=== PATIENT | male | born 1950 | race Caucasian/White ===

== ENCOUNTER 2018-05-08 05:53 | Inpatient (IN) | payer OTHER ==
[~2018-05-08] VITALS: Ht 180.3 cm; Wt 89.4 kg
[~2018-05-08 05:53] MED LIST: ADVAIR HFA 230M1 AER IH; AMLODIPINE BESY10 MG PO; AMOXICILLIN 50500 MG PO; BENICAR; BISA-LAX5 MG RE; CARDURA4 MG PO; CELEXA 20 MG TA20 M1 PO; DIAZEPAM 5 MG5 MG PO; FLOMAX0.4 MG PO; GUAIFENESIN L1200 MG PO; KEFLEX500 MG PO; LISINOPRIL; LOSARTAN-HCTZ1 EAC3 PO; LOVENOX SQ; MOM PO; NORCO 5-325 TA1 EACH PO; PROVENTIL INH; SINGULAIR 10 MG10 M1 PO; SODIUM PHO RE; VALIUM10 MG; VICODIN; VICODIN PO
[2018-05-08 05:55] VITALS: BP 125/54
[2018-05-08 06:32] LABS: ABSOLUTE EOSINOPHILS 0.1 thou/uL (0.0-0.7); ABSOLUTE LYMPHOCYTES 1.2 thou/uL (0.8-5.3); ABSOLUTE MONOCYTES 1.1 thou/uL (0.0-1.2); ABSOLUTE NEUTROPHILS 8.8 thou/uL (1.6-8.1); BASOPHILS 0.2 %; EOSINOPHILS 0.8 %; HEMATOCRIT 28.7 % (42.0-52.0); HEMOGLOBIN 9.5 gm/dL (14.0-18.0); MCV 66.7 fL (80.0-100.0); MONOCYTES 9.9 %; MPV 7.5 fl. (7.2-11.1); NUCLEATED RBCS 0 /100WBC; PLATELET COUNT* 351 thou/uL (150-400); POLYS 78.1 %; RDW-CV 14.4 % (10.5-14.5); WBC 11.3 thou/uL (4.0-11.0)
[2018-05-08] MEDS ORDERED: NORCO 10-325 T1 EACH PO (06:34)
[2018-05-08] MEDS ORDERED: PROZAC40 MG PO (06:35)
[2018-05-08] MEDS ORDERED: NAPROSYN500 MG (06:35)
[2018-05-08] MEDS ORDERED: COZAAR100 MG PO (06:35)
[2018-05-08] MEDS ORDERED: NORVASC10 MG PO (06:35)
[2018-05-08] MEDS ORDERED: DOXEPIN 50MG CA50 MG PO (06:36)
[2018-05-08 06:41] LABS: ANION GAP 7 mmol/L (7-16); BUN 31 mg/dL (7-18); CALCIUM 8.8 mg/dL (8.5-10.1); CHLORIDE 88 mmol/L (98-107); CO2 32 mmol/L (21-32); CREATININE 1.9 mg/dL (0.6-1.3); GLUCOSE 106 mg/dL (70-99); SODIUM 127 mmol/L (136-145)
[2018-05-08 06:44] LABS: INR 1.1; PROTIME 10.9 Seconds (9.20-11.50)
[2018-05-08 06:52] LABS: ALBUMIN 3.4 g/dL (3.4-5.0); ALKALINE PHOSPHATASE 63 U/L (46-116); NT-PRO BRAIN NAT PEPTIDE 594 pg/mL (<300); SGOT 22 U/L (15-37); SGPT 23 U/L (30-65); TOTAL BILIRUBIN 0.8 mg/dL (<0.1-1.0); TOTAL PROTEIN 6.6 g/dL (6.4-8.2); TROPONIN-I LEVEL <0.06 ng/mL (<0.06)
[2018-05-08 06:53] LABS: POTASSIUM 2.6 mmol/L (3.5-5.1)
[2018-05-08 07:18] LABS: PLATELET ESTIMATE ADEQUATE
[2018-05-08 07:20] LABS: HYPOCHROMASIA 1+
[2018-05-08 07:21] LABS: ANISOCYTOSIS 2+; MICROCYTES 2+; OVALOCYTES 1+; POIKILOCYTOSIS 1+
[2018-05-08 09:30] VITALS: BP 94/54
[2018-05-08 10:00] VITALS: BP 118/54
[2018-05-08 15:46] VITALS: BP 97/56
[2018-05-08 17:07] LABS: BE 1.4 mmol/L (-2 to +3); HCO3 25.3 mmol/L (22.0-26.0); PCO2 36.8 mmHg (35.0-45.0); PO2 91.2 mmHg (75.0-100.0); pH 7.455 (7.340-7.450)
[2018-05-08 19:39] VITALS: BP 112/83
[2018-05-09] VITALS (9 sets, daily range): BP systolic 106–167; BP diastolic 56–86
[2018-05-09 05:36] LABS: HEMATOCRIT 26.1 % (42.0-52.0); HEMOGLOBIN 8.5 gm/dL (14.0-18.0); MCH 22.2 pg (26.0-34.0); MCHC 32.6 g/dL (28.0-37.0); MCV 67.9 fL (80.0-100.0); MPV 8.5 fl. (7.2-11.1); NUCLEATED RBCS 0 /100WBC; RBC 3.85 mil/uL (4.50-6.00); RDW-CV 13.8 % (10.5-14.5); WBC 4.3 thou/uL (4.0-11.0)
[2018-05-09 05:43] LABS: PLATELET COUNT* 260 thou/uL (150-400)
[2018-05-09 05:59] LABS: ANION GAP 6 mmol/L (7-16); BUN 23 mg/dL (7-18); CALCIUM 8.2 mg/dL (8.5-10.1); CHLORIDE 89 mmol/L (98-107); CO2 28 mmol/L (21-32); CREATININE 1.5 mg/dL (0.6-1.3); GLUCOSE 138 mg/dL (70-99); SODIUM 123 mmol/L (136-145); TROPONIN-I LEVEL <0.06 ng/mL (<0.06)
[2018-05-09 06:03] LABS: POTASSIUM 4.1 mmol/L (3.5-5.1)
[2018-05-09 06:26] LABS: ABSOLUTE LYMPHOCYTES 0.3 thou/uL (0.8-5.3); ANISOCYTOSIS 1+; HYPOCHROMASIA 2+; MICROCYTES 2+
--- NOTE | 2018-05-09 08:57 | CON ---
[address] [address] CONSULTATION Name: PAULINO CONTRERAS Room: [address] IN M.R.#: [id number] Admission: 05/08/18 Attend Phys: Jermaine Suh MD Discharge: Date of : 54 Report #: [id number] THIS REPORT FOR: //name// CC: Jermaine Ray REASON FOR CONSULTATION: Acute respiratory failure. HISTORY OF PRESENT ILLNESS: This is a 67-year-old male patient, actually this is his first visit to [facility], who told me he was a week ago at [facility] for one night and he left against medical advice according to him. He was there for shortness of breath and urine problem, according to him, he was not clear, but he told me he had wheezes, cough and shortness of breath that progressed over the course of 1 week after he left [facility]. He reported he has chronic respiratory failure and COPD. He is on home oxygen 4 liters 25/04. He smokes e-cigarettes. He had been having cough, occasional sputum production, so the cough is mostly dry and wheezes for a week or so. He had denied nausea or vomiting. He denied sick contact. He denied any PND or orthopnea. He denied any chest pain. He is not sure if he had any fever or chills. Apparently, initially in the ER, he was in moderate respiratory distress; however, when I saw him, he was on 4 liter O2 saturation 100%, but per the RN, with minimal exertion, he becomes very tachypneic. PAST MEDICAL HISTORY: He has history of chronic respiratory failure, on home O2; COPD and hypertension. There is a mention of asthma in his record and apparently, he drinks alcohol daily. PAST SURGICAL HISTORY: He had a mention of thoracotomy in the surgery. He is not clear what kind of surgery he had shoulder surgery on the right, had enlarged prostate and kidney tumor and back surgeries. HOME MEDICATIONS: He is supposed to be on Singulair, Valium, Cardura, hydrocodone, naproxen, Prozac, Cozaar and doxepin. FAMILY HISTORY: Reviewed with the patient and noncontributory. SOCIAL HISTORY: He smokes e-cigarettes. He drinks alcohol daily. REVIEW OF SYSTEMS: He denied fever, chills, blurring of vision, hearing loss, headache, dysphagia, difficulty swallowing or dysarthria. He denied nausea or vomiting. He has some difficulty urination. He denied any chronic back pain. He denied any depression or bleeding from any orifice. He denied numbness, tingling, swelling or lower extremity edema. The rest of the review of system was negative. PHYSICAL EXAMINATION: VITAL SIGNS: He was on 4 liter oxygen, O2 saturation 97%, blood pressure 94/54, [place] [address] CONSULTATION Name: PAULINO CONTRERAS Jena Room: [address] IN [facility]#: [id number] Admission: 05/08/18 Attend Phys: Jermaine Suh MD Discharge: Date of : 54 Report #: [id number] breathing 16 times a minute, pulse rate of 100 and afebrile. GENERAL: Elderly gentleman, awake, alert. HEAD: Normocephalic, atraumatic. EYES: Pupils are reactive to light. Not pale, no jaundice. EARS: External ear looks healthy and normal. NOSE: Nasal cavity patent passages. ORAL CAVITY: Moist mucous membranes, missing teeth. NECK: Supple. No palpable lymphadenopathy. No palpable thyroid. Trachea is central. CHEST: Diminished air movement bilaterally, prolonged expiratory phase with wheezes, some rhonchi heard at the bases. HEART: S1, S2. ABDOMEN: Benign, soft, lax and nontender. Positive bowel sounds. EXTREMITIES: Lower extremity: No edema, no calf tenderness. SKIN: Normal for age and race. No rash. LYMPHATIC: No palpable lymph nodes. PSYCHIATRIC: Mood and affect slightly anxious. LABORATORY DATA: His chest x-ray in the ER showed thickening throughout both lungs, suggestive for COPD and right pleural thickening. His white blood count is 11.3, hemoglobin 9.5 and platelets of 351,000. His INR is 1.1. Potassium 2.6, sodium 127, chloride 88 and creatinine 1.9. Urine drug screen is pending, although his blood alcohol level is less than 10. IMPRESSION: 1. Nikre-fd-lkqrxhx respiratory failure. 2. Chronic obstructive pulmonary disease exacerbation. 3. Abnormal chest x-ray. 4. Hyponatremia. 5. Hypokalemia. 6. Acute renal failure. 7. Pneumonia. PLAN: At this point, the patient will be on scheduled nebulization treatments. He will be on IV antibiotics, continue oxygen support. Currently, he is comfortable, but if his respiratory status deteriorates, we can consider BiPAP. He needs replacing his electrolytes and monitoring fluid status and gentle hydration. It was noted Cardiology will follow along. I agree with the echocardiogram. He told me he had a CT scan done a week ago at [facility]; we will get those medical records before proceeding with any further imaging here. Discussed with the patient and the patient's nurse. [address] [place] [place] [address] CONSULTATION Name: PAULINO CONTRERAS Room: [address] IN [facility]#: [id number] Admission: 05/08/18 Attend Phys: Jermaine Suh MD Discharge: Date of : 54 Report #: [id number] Thank you for the consult. <ELECTRONICALLY SIGNED> By: Aditya Contreras MD 05/09/18 0857 1013 [id number] Contreras MD /nt
--- NOTE | 2018-05-09 15:31 | 2DMMODE ---
[place] [address] 2 D/M-MODE ECHOCARDIOGRAM Name: PAULINO CONTRERAS Room: [address] IN [facility]#: [id number] Admission: 05/08/18 Attend Phys: Jermaine Suh, Discharge: Date of : 54 Date of Service: 05/09/18 1531 Report #: [id number] THIS REPORT FOR: //name// APPROVED REPORT Study performed: 05/09/2018 10:06:27 EXAM: Comprehensive 2D, Doppler, and color-flow Echocardiogram Patient Location: In-Patient Room #: 200 Status: routine BSA: 2.15 HR: 110 bpm BP: 106/67 mmHg Rhythm: NSR Other Information Technically limited study due to uncooperative patient, inability to position patient, patient could not hold still. Indications Dyspnea 2D Dimensions LVEF(%): 73.46 (>50%) IVSd: 12.10 (7-11mm) LVOT Diam: 22.78 (18-24mm) LVDd: 45.70 mm PWd: 11.20 (7-11mm) LVDs: 26.35 (25-40mm) Aortic Root: 35.14 mm Stephen's LVEF: 73.46 % Aortic Valve AoV Peak Jl.: 1.71 m/s AO Peak Gr.: 11.71 mmHg LVOT Max P.00 mmHg AO Mean Gr.: 6.07 mmHg LVOT Mean P.79 mmHg LVOT Max V: 1.22 m/s AO V2 VTI: 22.08 cm LVOT Mean V: 0.76 m/s RICHARD (VTI): 3.65 cm2 LVOT V1 VTI: 19.75 cm Mitral Valve E/A Ratio: 0.67 MV Decel. Time: 177.69 ms MV E Max Jl.: 0.88 m/s MV PHT: 51.53 [place] [address] 2 D/M-MODE ECHOCARDIOGRAM Name: PAULINO CONTRERAS Room: [address] IN ..#: [id number] Admission: 05/08/18 Attend Phys: Jermaine Suh, Discharge: Date of : 54 Date of Service: 05/09/18 1531 Report #: [id number] MVA (PHT): 4.27 cm2 Left Ventricle The left ventricle is normal size. There is normal LV segmental wall motion. There is normal left ventricular wall thickness. Left ventricular systolic function is normal. The left ventricular ejection fraction is within the normal range. LVEF is 65-70%. Grade I - abnormal relaxation pattern. Right Ventricle The right ventricle is normal size. The right ventricular systolic function is normal. Atria The left atrium size is normal. The right atrium size is normal. Aortic Valve The aortic valve is normal in structure. No aortic regurgitation is present. There is no aortic valvular stenosis. Mitral Valve The mitral valve is normal in structure. Trace mitral regurgitation. No evidence of mitral valve stenosis. Tricuspid Valve The tricuspid valve is normal in structure. Unable to assess PA pressure. Trace tricuspid regurgitation. Pulmonic Valve The pulmonary valve is normal in structure. There is no pulmonic valvular regurgitation. Great Vessels The aortic root is normal in size. IVC is not visualized. Pericardium There is no pericardial effusion. <Conclusion> The left ventricle is normal size. There is normal left ventricular wall thickness. Left ventricular systolic function is normal. The left ventricular ejection fraction [place] [address] 2 D/M-MODE ECHOCARDIOGRAM Name: PAULINO CONTRERAS Room: [address]#: [id number] Admission: 05/08/18 Attend Phys: Jermaine Suh, Discharge: Date of : 54 Date of Service: 05/09/18 1531 Report #: [id number] LVEF is 65-70%. Grade I - abnormal relaxation pattern. The right ventricle is normal size. The left atrium size is normal. The aortic valve is normal in structure. The mitral valve is normal in structure. The tricuspid valve is normal in structure. There is no pericardial effusion. There is normal LV segmental wall motion. <ELECTRONICALLY SIGNED> By: Chavo Dupree MD, [facility] 05/09/18 1531 1531 1531 Chavo Dupree MD, FACC /INF
[2018-05-09 16:20] LABS: CALCIUM 8.3 mg/dL (8.5-10.1); CREATININE 1.2 mg/dL (0.6-1.3); POTASSIUM 3.9 mmol/L (3.5-5.1)
[2018-05-09 16:44] LABS: URINE BILIRUBIN NEGATIVE (Negative); URINE BLOOD NEGATIVE (Negative); URINE CLARITY CLEAR; URINE COLOR YELLOW; URINE GLUCOSE-RANDOM NEGATIVE (Negative); URINE KETONES NEGATIVE (Negative); URINE LEUKOCYTES-REFLEX NEGATIVE (Negative); URINE NITRITE-REFLEX NEGATIVE (Negative); URINE PROTEIN NEGATIVE (Negative); URINE SPECIFIC GRAVITY <= 1.005 (1.005-1.030); URINE UROBILINOGEN 0.2 E.U./dl (0.2-1.0)
[2018-05-09 16:49] LABS: AMP/METHAMP Negative (Negative); BARBITURATES Negative (Negative); BENZODIAZEPINES Negative (Negative); COCAINE Negative (Negative); METHADONE Negative (Negative); OPIATES POSITIVE (Negative); PCP Negative (Negative); THC Negative (Negative)
[2018-05-09 16:57] LABS: URINE POTASSIUM-RANDOM 6.4 mmol/L
[2018-05-10 04:43] VITALS: BP 121/35
[2018-05-10 06:21] LABS: CALCIUM 8.5 mg/dL (8.5-10.1); CREATININE 1.2 mg/dL (0.6-1.3); MAGNESIUM 1.8 mg/dL (1.8-2.4); PHOSPHORUS* 2.6 mg/dL (2.5-4.9); POTASSIUM 3.9 mmol/L (3.5-5.1)
[2018-05-10 08:16] VITALS: BP 136/60
[2018-05-10 11:36] VITALS: BP 131/61
--- NOTE | 2018-05-10 15:52 | CON ---
[address] [address] CONSULTATION Name: PAULINO CONTRERAS Room: [address] IN .R.#: [id number] Admission: 05/08/18 Attend Phys: Jermaine Suh MD Discharge: Date of : 54 Report #: [id number] THIS REPORT FOR: //name// CC: Jermaine Scott [place] REASON FOR CONSULTATION: Hyponatremia. CONSULTING PHYSICIAN: Jermaine Suh MD HISTORY OF PRESENT ILLNESS: A 67-year-old gentleman admitted with respiratory failure and COPD exacerbation. He denies any history of hyponatremia, but was admitted with sodium of 127, it is down to 122 today. He does drink quite a bit of water at home a day, at least 1-2 gallons. For the past week and a half he has been having some unsteady balance, but no slurred speech or other neurologic changes. Denies any new medications. He tells me that he has lost some weight, but cannot really quantify it. REVIEW OF SYSTEMS: Constitutional, psych, heme, eyes, ENT, respiratory, cardiac, GI, , endocrine, all negative except as documented above. PAST MEDICAL HISTORY: COPD on home oxygen, hypertension, asthma. SOCIAL HISTORY: Positive for tobacco. FAMILY HISTORY: Not pertinent in a 67-year-old gentleman. PHYSICAL EXAMINATION: VITAL SIGNS: Blood pressure 150/56, pulse 96, respirations 20, temperature 36.7. GENERAL: No acute distress. EYES: Extraocular movements intact. EARS: Externally normal. CARDIOVASCULAR: Regular rate. LUNGS: Diminished breath sounds. ABDOMEN: Soft. MUSCULOSKELETAL: Nontender. PSYCHIATRIC: Awake, alert. LABORATORY DATA: White cell count 4.3, hemoglobin 8.5, platelets 260. Sodium 122, potassium 4, chloride 88, bicarbonate 25, BUN was 23, creatinine 1.5, glucose 138, calcium 8.2. ASSESSMENT: 1. Hyponatremia with an admission sodium of 127 and down to 122 on 05/09/2018 in the setting of drinking 1-2 gallons of water a day. Bilateral pleural masses for which a biopsy is planned. Pneumonia, chronic [place] [address] CONSULTATION Name: PAULINO CONTRERAS Room: [address] IN [facility]#: [id number] Admission: 05/08/18 Attend Phys: Jermaine Suh MD Discharge: Date of : 54 Report #: [id number] exacerbation. TSH was okay. 2. Acute kidney injury with admission creatinine was 1.9, it is down to 1.5 on 05/09/2018. Baseline creatinine unknown. This is in the setting of naproxen and ARB. 3. Hypertension. PLAN: 1. Check urine sodium, urine potassium and urine osmolarity. 2. Repeat sodium now. 3. 1.5 L per day fluid restriction. 4. He is not having any severe symptoms at present. We will await repeat, which will be called to me to determine if any further treatment other than the fluid restriction is needed at this time. Thank you for requesting my opinion in the care and management of this patient. <ELECTRONICALLY SIGNED> By: Brittnee Elder MD 05/10/18 1552 1611 [id number] Elder MD /nt
[2018-05-10 16:13] VITALS: BP 125/59
[2018-05-10 20:00] VITALS: BP 119/75
[2018-05-11] VITALS: BP 137/61
[2018-05-11 04:30] LABS: HEMOGLOBIN 8.1 gm/dL (14.0-18.0); MCH 21.9 pg (26.0-34.0); MCHC 32.6 g/dL (28.0-37.0); MCV 67.4 fL (80.0-100.0); MPV 8.2 fl. (7.2-11.1); NUCLEATED RBCS 0 /100WBC; PLATELET COUNT* 246 thou/uL (150-400); RBC 3.71 mil/uL (4.50-6.00); RDW-CV 13.9 % (10.5-14.5); WBC 9.3 thou/uL (4.0-11.0)
[2018-05-11 04:40] VITALS: BP 121/78
[2018-05-11 04:55] LABS: ALBUMIN 3.1 g/dL (3.4-5.0); CALCIUM 8.4 mg/dL (8.5-10.1); CREATININE 1.1 mg/dL (0.6-1.3); POTASSIUM 4.3 mmol/L (3.5-5.1); TOTAL BILIRUBIN 0.4 mg/dL (<0.1-1.0); TOTAL PROTEIN 5.6 g/dL (6.4-8.2)
[2018-05-11 05:39] LABS: ABSOLUTE LYMPHOCYTES 0.5 thou/uL (0.8-5.3); ABSOLUTE NEUTROPHILS 8.8 thou/uL (1.6-8.1); PLATELET ESTIMATE ADEQUATE
[2018-05-11 05:40] LABS: ANISOCYTOSIS 2+; HYPOCHROMASIA 1+; MICROCYTES 2+; OVALOCYTES 2+
[2018-05-11 05:41] LABS: POIKILOCYTOSIS 2+
[2018-05-11 07:58] VITALS: BP 137/69
[2018-05-11 12:30] VITALS: BP 92/71
[2018-05-11 17:01] VITALS: BP 130/87
[2018-05-11 20:05] VITALS: BP 105/64
[2018-05-12 00:01] VITALS: BP 121/65
[2018-05-12 04:00] VITALS: BP 139/70
[2018-05-12 08:02] VITALS: BP 126/80
[2018-05-12] MEDS ORDERED: AUGMENTIN 875-1 EACH PO (09:50)
[2018-05-12] MEDS ORDERED: PROTONIX40 M1 PO (09:51)
[2018-05-12 09:54] VITALS: BP 126/80
[2018-05-12] MEDS ORDERED: PREDNISONE 10 M10 MG PO (09:54)
[2018-06-14] MEDS ORDERED: LEVALBUTER1.25 MG/0. INH (11:55)
--- NOTE | 2018-06-27 07:44 | PATH ---
[address] [address] PATHOLOGY RPT PROCEDURE Name: PAULINO VILLARREAL Room: [address] IN ..#: [id number] Admission: 05/08/18 Date of : 54 Discharge: 05/12/18 Report #: [id number] Path Case #: [id number] [facility] Accession Number: [id number] . 01 Material submitted: . RIGHT PLEURAL SPACE BIOPSY . 01 Clinical history: . 6.9 x 2.5 cm area with calcification . 02 Diagnosis: Right pleural space biopsy: - Benign dense fibrous connective tissue with mild chronic inflammation. See comment. (VARGAS:aryan; 05/12/2018) QMS/05/12/2018 . 02 Comment: All of the cores show similar findings with hypocellular dense fibrosis without necrosis or atypia or definite recognizable mesothelial cells. No calcification is seen. Reviewed with Dr. Osbaldo Dugan, who agrees with the diagnosis. Discussed with Dr. Nagy on afternoon of 05/12/2018. (VARGAS:nyu langone [facility]; 05/12/2018) . 02 Electronically signed: . Michael Saldaña MD, Pathologist NPI- [id number] . 01 Gross description: . Received in formalin labeled "Paulino Villarreal, right pleural space BX," are six distinct needle cores of sanchez soft tissue ranging from 0.3 to 1.2 cm in length and measuring 0.1 cm each in diameter. The specimen is submitted entirely in cassettes A1 through A3. (DAC; 05/11/2018) XDC/XDC . 02 Pathologist provided ICD-10: R09.1 . 02 CPT . 707271 Specimen Comment: A courtesy copy of this report has been sent to Specimen Comment: [phone], . Performed at: [address] [id number] MD Tyler Johnson MD Phone: [phone] Performed at: 02 [place] [address] PATHOLOGY RPT PROCEDURE Name: PAULINO VILLARREAL Room: [address] IN M.R.#: [id number] Admission: 05/08/18 Date of : 54 Discharge: 05/12/18 Report #: [id number] Path Case #: [id number] [facility] [place] [address], [place], [place] [id number] MD Michael Saldaña MD Phone: [phone]
== END 2018-05-12 12:00 | disposition home or self-care (01) | DRG 177 ==
LOC: M.ERS → EDBD 05:53 → M.2W 07:52 → M.TBA-ER 07:52 → M.2W 09:35
PROVIDERS: Emergency Medicine; Internal Medicine Nephrology; ADMIT Internal Medicine
PROC: 0BBP3ZX Excision of Left Pleura, Percutaneous Approach, Diagnostic (ICD-10-PCS; principal; 2018-05-10)
PROC: BB4BZZZ Ultrasonography of Pleura (ICD-10-PCS; principal; 2018-05-10)
DX: J15.6 Pneumonia due to other Gram-negative bacteria (principal); J96.21 Acute and chronic respiratory failure with hypoxia; R65.11 Systemic inflammatory response syndrome (SIRS) of non-infectious origin with acute organ dysfunction; J44.1 Chronic obstructive pulmonary disease with (acute) exacerbation; J44.0 Chronic obstructive pulmonary disease with (acute) lower respiratory infection; E87.1 Hypo-osmolality and hyponatremia; N17.9 Acute kidney failure, unspecified; I47.1 Supraventricular tachycardia; I10 Essential (primary) hypertension; N40.0 Benign prostatic hyperplasia without lower urinary tract symptoms; F17.290 Nicotine dependence, other tobacco product, uncomplicated; E87.6 Hypokalemia; D64.9 Anemia, unspecified; Z91.14 Patient's other noncompliance with medication regimen; Z79.2 Long term (current) use of antibiotics; Z79.51 Long term (current) use of inhaled steroids; Z79.899 Other long term (current) drug therapy; Z99.81 Dependence on supplemental oxygen

== ENCOUNTER 2018-05-15 19:59 | Inpatient (IN) | payer OTHER ==
[~2018-05-15] VITALS: Ht 180.3 cm; Wt 97.5 kg
[~2018-05-15 19:59] MED LIST changes: +AUGMENTIN 875-1 EACH PO; +COZAAR100 MG PO; +DOXEPIN 50MG CA50 MG PO; +NAPROSYN500 MG; +NORCO 10-325 T1 EACH PO; +NORVASC10 MG PO; +PREDNISONE 10 M10 MG PO; +PROTONIX40 M1 PO; +PROZAC40 MG PO
[2018-05-15 20:30] LABS: HEMOGLOBIN 7.9 gm/dL (14.0-18.0); MCH 22.3 pg (26.0-34.0); MCV 67.6 fL (80.0-100.0); MPV 8.4 fl. (7.2-11.1); NUCLEATED RBCS 0 /100WBC; PLATELET COUNT* 255 thou/uL (150-400); RBC 3.54 mil/uL (4.50-6.00); RDW-CV 14.7 % (10.5-14.5); WBC 16.6 thou/uL (4.0-11.0)
[2018-05-15 20:33] LABS: ANION GAP 5 mmol/L (7-16); BUN 16 mg/dL (7-18); CALCIUM 8.2 mg/dL (8.5-10.1); CHLORIDE 94 mmol/L (98-107); CO2 31 mmol/L (21-32); CREATININE 1.2 mg/dL (0.6-1.3); GLUCOSE 122 mg/dL (70-99); POTASSIUM 3.4 mmol/L (3.5-5.1); SODIUM 130 mmol/L (136-145)
[2018-05-15 20:35] LABS: PROTIME 9.8 Seconds (9.20-11.50)
[2018-05-15 20:43] LABS: ALBUMIN 3.1 g/dL (3.4-5.0); ALKALINE PHOSPHATASE 47 U/L (46-116); NT-PRO BRAIN NAT PEPTIDE 1267 pg/mL (<300); SGOT 16 U/L (15-37); SGPT 28 U/L (30-65); TOTAL BILIRUBIN 0.7 mg/dL (<0.1-1.0); TOTAL PROTEIN 5.6 g/dL (6.4-8.2); TROPONIN-I LEVEL <0.06 ng/mL (<0.06)
[2018-05-15 22:05] LABS: ABSOLUTE LYMPHOCYTES 0.5 thou/uL (0.8-5.3); ABSOLUTE MONOCYTES 0.7 thou/uL (0.0-1.2); ABSOLUTE NEUTROPHILS 15.4 thou/uL (1.6-8.1); PLATELET ESTIMATE ADEQUATE
[2018-05-15 22:06] LABS: HYPOCHROMASIA 3+; MICROCYTES 2+; OVALOCYTES 1+
[2018-05-15 22:57] VITALS: BP 117/69
[2018-05-15 23:10] VITALS: BP 127/74
[2018-05-16 04:00] VITALS: BP 121/66
--- NOTE | 2018-05-16 06:39 | NUR ---
PT WAS ADMITTED TO ROOM 209 DURING THIS SHIFT; VSS, A+OX4, RECEIVED PAIN MEDS IN THE ED, ON 4L O2 VIA NC. HE IS ABLE TO COMMUNICATE HIS NEEDS TO STAFF EFFECTIVELY. CURRENT PAIN MEDICATION REGIMEN HAS BEEN ADEQUATE FOR CONTROLLING HIS PAIN UP TO THIS TIME. ELECTROLYTE PROTOCOL INITIATED IN THE ED.
[2018-05-16 08:00] VITALS: BP 126/71
--- NOTE | 2018-05-16 11:09 | EKG ---
[place] [address] ELECTROCARDIOGRAM REPORT Name: PAULINO CONTRERAS Room: [address] ADM IN .R.#: [id number] Admission: 05/15/18 Attend Phys: Ethel Cruz MD Discharge: Date of : 54 Report #: [id number] THIS REPORT FOR: //name// [facility] ED Test Date: 2018-05-15 Test Time: 20:17:18 Pat Name: PAULINO CONTRERAS Department: Room: [facility] Gender: M Management Manager: MS : 1950 Requested By: Gilma Holman Order Number: [id number] MD: Kirill Jean Measurements Intervals [place] Rate: 96 P: 65 NC: 145 QRS: 34 QRSD: 144 T: 4 QT: 376 QTc: 476 Interpretive Statements Sinus tachycardia Multiform ventricular premature complexes Right bundle branch block Compared to ECG 12/16/2010 09:35:32 Ventricular premature complex(es) now present Sinus rhythm no longer present Electronically Signed On 05-16-2018 11:09:03 CDT by Kirill Jean [email or web address] <ELECTRONICALLY SIGNED> By: Kirill Jean MD, FACC 05/16/18 1109 16 16 Kirill Jean MD, FAC /EPI
--- NOTE | 2018-05-16 11:34 | NUR ---
Nutrition: Pt assessed for pressure ulcer on Lt buttock. Heart Healthy diet. Unsure of po intake today. Wt: 199#. H/o COPD, HTN, ARF, falls/uses cane. Na 133, BG 122, alb 3.1. RX: steroids. Pressure ulcer is not new. RD will order Tay for added protein to aid in wound healing. Mild risk. RECOMMEND MVI USE.
[2018-05-16 12:00] VITALS: BP 127/57
[2018-05-16 14:37] LABS: CREATININE 1.2 mg/dL (0.6-1.3); MAGNESIUM 1.7 mg/dL (1.8-2.4); POTASSIUM 3.5 mmol/L (3.5-5.1)
[2018-05-16 15:23] VITALS: BP 114/59
--- NOTE | 2018-05-16 15:29 | NUR ---
Pt is A&O. Resides at home with his son. Pt known to CM, from last hospital stay last week. Pt uses a cane for mobility. Home o2 through [employer]. No hx of HH or SNF. Goal is home at pr. Following.
--- NOTE | 2018-05-16 18:59 | NUR ---
PATINET RESTING IN BED. UP WITH MAX ASSIST. PAITNET IS UTILIZING 4L PEDR NASAL CANULA. HOURLY ROUNDING COMPLETD FOR [id number] SAFETY. VITAL SIGNS STABLE.
[2018-05-16 20:00] VITALS: BP 131/71
[2018-05-17] VITALS: BP 128/58
[2018-05-17 04:00] VITALS: BP 133/66
--- NOTE | 2018-05-17 04:08 | NUR ---
PT ALERT ORIENTED. TELEMETRY SHOWS SR BBB 1ST DEGREE AVB. ON 1750ML FR. O2 AT 4 LITERS NC. NO SOA OR RESPIRATORY DISTRESS NOTED. O2 SATS 100% VOIDS PER URINAL. WILL CONTINUE TO MONITOR.
[2018-05-17 08:23] VITALS: BP 129/70
--- NOTE | 2018-05-17 08:42 | NUR ---
PT BECAME ANGRY THIS AM ABOUT HIS DIET ORDER AND FLUID RESTRICTION. PT CALLED TO DIETARY DEMANDING TWO LARGE PEPSI THAT DIETARY REFUSED. PT THEN YELLED AT NURSING BECAUSE THE PEPSI WAS CONTINUED TO BE REFUSED BUT WAS OFFERED A SMALLER DIET PEPSI THAT PT REFUSED. WHILE NURSE WAS ATTEMPTING TO EDUCATE PT ABOUT FLUID RESTRICTION AND SODIUM LEVELS, PT KEPT REPEATING HE COULD DO WHAT HE WANTED AND HE HAS RIGHTS. PT SON THEN WALKED IN WITH FAST FOOD BREAKFAST AND 2 LARGE CHACHA FOR PT AND LEFT IT AT BEDSIDE FOR PT. PT EDUCATED IMPRTANCE OF FOLLOWING DR RECOMMENDATIONS AND HEALTH BUT PT DISREGARDED STATING 'I CAN DO WHAT I WANT AND YOU CANT STOP ME'. NURSE LEFT THE ROOM.
[2018-05-17 12:00] VITALS: BP 96/58
[2018-05-17 13:05] LABS: ALBUMIN 2.7 g/dL (3.4-5.0); CALCIUM 8.1 mg/dL (8.5-10.1); POTASSIUM 3.9 mmol/L (3.5-5.1); TOTAL BILIRUBIN 0.4 mg/dL (<0.1-1.0); TOTAL PROTEIN 5.5 g/dL (6.4-8.2)
--- NOTE | 2018-05-17 15:01 | NUR ---
WOUND CARE NOTE: CONSULT RECEIVED FOR LEFT BUTTOCK. PATIENT PRESENTS WITH A HEALING STAGE 3 PRESSURE ULCER TO THE LEFT BUTTOCK MEASURING 1.5X2.5X0.1. PINK, MOIST WOUND BED TO 80% OF THE WOUND BED. 20% OF THE WOUND BED WITH YELLOW, MOIST, ADHERENT SLOUGH TISSUE. YEE-WOUND INTACT. SUPERIOR TO THIS PRESSURE ULCER, THERE IS ANOTHER AREA OF BREAKDOWN MEASURING 0.2X0.5X0.1. PINK, MOIST, WOUND BED. YEE-WOUND WITH NEW EPITHELIUM, HEALING. CLEANSED BOTH AREAS WITH WOUND CLEANSER, PATTED DRY. APPLIED SKIN PREP TO YEE-WOUND. APPLIED AQUACEL AG TO BOTH WOUND BEDS AND SECURED WITH EXUDERM THEN TEGADERM. EDUCATED PATIENT ON NICOTINE CESSATION, OFFLOADING, AND DRESSING SELECTION. PATIENT COMMUNICATED UNDERSTANDING, BUT HE WILL NEED ENCOURAGEMENT WITH OFFLOADING AND NICOTINE CESSATION. RECOMMEND LIMIT HOB <30 DEGREES ENCOURAGE GOOD NUTRITION/HYDRATION ENCOURAGE NICOTINE CESSATION KEEP OFF WOUND TURN Q2 HOURS
--- NOTE | 2018-05-17 15:19 | CON ---
[address] [address] CONSULTATION Name: PAULINO CONTRERAS Room: [address] IN M.R.#: [id number] Admission: 05/15/18 Attend Phys: Ethel Cruz MD Discharge: Date of : 54 Report #: [id number] THIS REPORT FOR: //name// CC: Ethel Ray DATE OF SERVICE: 05/16/2018 CONSULTATION REQUESTED BY: Dr. Medley. INDICATION FOR CONSULTATION: Shortness of breath0, 05/16/2018. HISTORY OF PRESENT ILLNESS: This is a 67-year-old gentleman. Past medical history includes a history of oxygen-dependent COPD. The patient also has had a pleural plaques/pleural-based masses and he has had 2 recent admissions, the first one was at [facility] from which he is reported to have signed AMA and left. Last admission was subsequent to that and at this hospital, he was seen by our service. The patient, at that time, did undergo a biopsy of pleural mass, which is benign. The patient was subsequently discharged after improvement in shortness of breath. The patient says he went home, but continued to have significant shortness of breath. Also continued to wheeze, and therefore, came back to this hospital. He does have a cough. There is not much sputum production. There is no chest pain. He does not have upper respiratory complaints. There is no increase in swelling of lower extremities or calf pain. The patient does have a history of back pain, which remains at baseline. He does have a history of disturbed sleep at night as well as sleepiness during the day. He says he has been prescribed a CPAP at home, which he has not been using regularly. REVIEW OF SYSTEMS: The patient answered with the negative for 12 questions for review of systems, except as mentioned above. PAST MEDICAL HISTORY: Chronic respiratory failure, on oxygen secondary to COPD. Obstructive sleep apnea, he has a CPAP at home. He says he has, for the last few weeks, not been using it regularly. Pleural nodule/plaque/masses with recent biopsy performed in this hospital, which was negative. There is significant scarring or atelectasis or chronic infiltrate in the right lung base on his CT, the chronicity of which is not fully known to me. I do not have the records from [place] at this time. Obstructive sleep apnea. He has a CPAP at home. He says he does not use it regularly. Also a history of hypertension. He has had a thoracotomy in the past, I do not have details; shoulder surgery; a large prostate; kidney tumor; back surgeries; hyponatremia, suspected to be secondary to excessive fluid intake. The [place] [address] CONSULTATION Name: PAULINO CONTRERAS Room: [address] IN .R.#: [id number] Admission: 05/15/18 Attend Phys: Ethel Cruz MD Discharge: Date of : 54 Report #: [id number] gallons of water daily. The patient's last available echocardiogram is from about a week ago and shows a left ventricular ejection fraction of 65% to 70%. There is trace mitral regurgitation. The tricuspid valve was noted to be normal. SOCIAL HISTORY: He has an extensive history of smoking, unable to quantify exactly at this time. He says he has recently switched to e-cigarettes rather than regular cigarettes. Also, he drinks alcohol daily, again, unable to quantify exactly. He is on prescribed benzodiazepines as well as narcotics at home, not known to be using any illegal drugs. 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 There is no known history of working on a ship. No known history of working at a steel mill. CURRENT MEDICATIONS: List in 12Return reviewed. HOME MEDICATIONS: List also in 12Return reviewed. FAMILY HISTORY: There is no pertinent family history. ALLERGIES: No known drug allergies. PHYSICAL EXAMINATION: GENERAL: He is alert, awake and oriented. VITAL SIGNS: He has a pulse of 90 and a blood pressure of 127/57. He is saturating 97%, he is on 4 liters nasal cannula. His respiratory rate is 16. He is afebrile with a temperature of 36.6. HEENT: Head is normocephalic and atraumatic. Pupils are equal and reactive. There is no throat erythema. NECK: Does not show raised JVP, asymmetry, mass or lymph nodes. CHEST: Symmetrical expansion on inspection and palpation. On auscultation, breath sounds are bilaterally equal, except that I do not hear good breath sounds at the right lung base. Expirations are prolonged. There are inspiratory as well as expiratory wheezes heard bilaterally. HEART: Regular. There is no murmur. ABDOMEN: Soft and nontender. EXTREMITIES: Lower extremities show no edema, no calf tenderness. SKIN: Dry and intact. NEUROLOGICAL EXAMINATION: He moves all extremities bilaterally equally and spontaneously, with no focal deficit identified. LABORATORY DATA: I reviewed the patient's last CT chest performed last night . In addition to the report, I reviewed the films as well. I did the same with the last CT from last week as well. I do not have the previous CT performed at [facility] available at this time. The patient's lab work, which does show significant anemia, in 12Return reviewed. Note that the patient's creatinine was elevated to 1.2. Sodium was on the lower [place] [address] [address] CONSULTATION Name: PAULINO CONTRERAS Room: [address] IN .R.#: [id number] Admission: 05/15/18 Attend Phys: Ethel Cruz MD Discharge: Date of : 54 Report #: [id number] ASSESSMENT AND PLAN: 1. Sxsyd-gz-umkapze hypoxemic respiratory failure. The patient appears to be bronchospastic. This appears to be the etiology of the patient's decompensation. 2. Chronic obstructive pulmonary disease exacerbation. Continue Solu-Medrol as well as nebulized bronchodilators as currently prescribed. Recommend following blood glucoses. 3. Pleural plaques/nodules chronic pulmonary infiltrate/atelectasis. It is not possible for me to state with certainty as to whether the patient has pneumonia. Clinical presentation, however, is more consistent with his CT finding that has been old and his current decompensation is being secondary to bronchospasm. The patient currently is on Augmentin as well as Levaquin for now. I continued with Levaquin and discontinued Augmentin. Note that he has had a biopsy performed on his pleural nodule recently, which is negative for any malignancy. Once his acute illness has been treated, obtaining a PET scan to evaluate this further can be a consideration. 4. Obstructive sleep apnea. He is on a CPAP at home, which he says he has not been using regularly for the last few weeks. Recommend placing him on a BiPAP for now. Recommend compliance with CPAP therapy. 5. Hyponatremia with a history of excessive fluid intake. We will go ahead and repeat labs and see where we stand. Note that the patient's lactate was elevated on initial presentation. If his creatinine and BUN are normal, I still may consider fluid restriction; however, I want to look at the creatinine and BUN first. We will replace electrolytes as needed. 6. Anemia/gastrointestinal prophylaxis. He is on Protonix and I will recommend continuing. Suggest further workup of anemia, if not already performed. 7. Deep vein thrombosis prophylaxis. I will recommend SCDs. 8. History of alcohol intake, unable to quantify exactly; unknown to me as to whether the patient has a history of excessive alcohol intake. Suggest watching for withdrawal. Thanks for this consultation. <ELECTRONICALLY SIGNED> By: Matthias Snowden MD 05/17/18 1519 1416 [id number] Snowden MD /nt
[2018-05-17 16:00] VITALS: BP 127/67
[2018-05-17 20:00] VITALS: BP 126/68
[2018-05-18] VITALS (8 sets, daily range): BP systolic 111–141; BP diastolic 62–82
--- NOTE | 2018-05-18 03:22 | NUR ---
ASSUMED PT CARE AT 1930. ASSESSMENT COMPLETED CHARTED. PT RESTING IN BED AT THIS TIME. APPROPRIATE TO STAFF THIS SHIFT, EVEN JOKED AROUND WITH THIS NURSE. GAVE PAIN MEDICATION AND ANXIETY MEDICATION NEEDED. C/O CHRONIC BACK PAIN. PT STAYS IN BED MOST OF THE TIME DUE TO WEAKNESS AND SOA. WILL CONTINUE TO MONITOR.
[2018-05-18 07:25] LABS: ABSOLUTE LYMPHOCYTES 0.4 thou/uL (0.8-5.3); ABSOLUTE MONOCYTES 0.8 thou/uL (0.0-1.2); ABSOLUTE NEUTROPHILS 14.5 thou/uL (1.6-8.1); BASOPHILS 0.1 %; HEMATOCRIT 22.8 % (42.0-52.0); HEMOGLOBIN 7.5 gm/dL (14.0-18.0); LYMPHOCYTES 2.5 %; MCH 22.6 pg (26.0-34.0); MCHC 32.9 g/dL (28.0-37.0); MCV 68.5 fL (80.0-100.0); MONOCYTES 4.9 %; MPV 8.2 fl. (7.2-11.1); NUCLEATED RBCS 0 /100WBC; PLATELET COUNT* 231 thou/uL (150-400); POLYS 92.5 %; RBC 3.33 mil/uL (4.50-6.00); RDW-CV 15.3 % (10.5-14.5); WBC 15.7 thou/uL (4.0-11.0)
[2018-05-18 08:00] LABS: CALCIUM 8.6 mg/dL (8.5-10.1); CREATININE 1.1 mg/dL (0.6-1.3); MAGNESIUM 2.2 mg/dL (1.8-2.4); POTASSIUM 4.2 mmol/L (3.5-5.1)
--- NOTE | 2018-05-18 17:45 | NUR ---
MULTIPLE DISCUSSIONS WITH HOSPITALIST AND DENTAL ASSISTANT MEDICAL ASSISTANT REGARDING PT DIET AND FLUID RESTRICTION. PT IS NON COMPLIANT WITH FLUID RESTRICTION AND DOES NOT WANT TO MAINTAIN CARB CONTROL DIET. PT BUTTOCK WOUND DRESSING IS IN TACT AT THIS TIME. PT REFUSING LASIX AT THIS TIME. PT O2 SAT STABLE WITH 4L O2 PER NC THIS SHIFT. PT UP WITH SBA AT THIS TIME. PT ST ON TELE. WALKER WAS OBTAINED FOR THE PATIENT. PT GETTING IV ABX THIS SHIFT. NO OTHER CONCERNS AT THIS TIME.
[2018-05-19] VITALS: BP 164/69
--- NOTE | 2018-05-19 06:57 | NUR ---
ASSUMED PT CARE AT 1930. ASSESSMENT COMPLETED CHARTED. ABLE TO MAKE NEEDS KNOWN. PT RESTING THROUGHOUT MOST OF THE NIGHT, STATED HE HAS SOME TROUBLE STARTING TO URINATE DUE TO ENLARGED PROSTATE, REFUSES FOLLOWING FLUID RESTRICTION. WILL CONTINUE TO MONITOR.
[2018-05-19 08:00] VITALS: BP 137/72
[2018-05-19 11:54] VITALS: BP 144/66
[2018-05-19 15:17] VITALS: BP 138/67
--- NOTE | 2018-05-19 18:01 | NUR ---
PATINET RESTING IN BED. UP WITH ASSIST X1. STEROIDS PER IV AND IV ABX. PATINET REQUESTING PAIN MEDICATIONS AND ANTI ANXIETY MEDICATIONS FREQUENT;LY. VITAL SIGNS STABLE AND PATIENT IN NO APPARENT DISTRESS AT THIS TIME. HOURLY ROUNDING COMPLETED FOR BARBARANET SAFETY. JAMEL EXPECTS DC TOMORROW.
[2018-05-19 20:00] VITALS: BP 134/76
[2018-05-20] VITALS: BP 160/86
--- NOTE | 2018-05-20 03:45 | NUR ---
ASSUMED CARE OF PATIENT AT 1900 THE PATIENT REMAINS SR WITH BBB ON THE MONITOR O2 SAT MAINTAINED ON 4L NC CONTINUES TO BE UP WITH ASSIST OF 1 ET WALKER REPORTEDLY THE ROUTINE REGIMEN CONTINUES TO BE EFFECTIVE FOR SX MANAGEMENT PATIENT PROGRESSING TOWARDS GOALS OF DISCHARGE REQUEST MX SNACKS THIS SHIFT WITHOUT S/SX OF ACUTE DISTRESS SAFETY INTERVENTIONS CONTINUE BED LOWERED WHEELS LOCKED CALL LIGHT IN REACH SIDE RAILS UP REPORT TO BE GIVEN TO ONCOMING RN
--- NOTE | 2018-05-20 06:17 | NUR ---
DESPITE RECOMMENDATIONS OF FLUID RESTRICT PATIENT CONTINUES TO DRINK EXCESSIVE AMOUNTS OF FLUID AND SNACKS PUDDING ET JELLO LITER OF WATER AT BEDSIDE AT SHIFT START REINFORCED EDUCATION
[2018-05-20 07:30] VITALS: BP 136/67
[2018-05-20 07:55] LABS: HEMATOCRIT 23.5 % (42.0-52.0); HEMOGLOBIN 7.6 gm/dL (14.0-18.0); MCH 22.5 pg (26.0-34.0); MCHC 32.2 g/dL (28.0-37.0); MCV 69.8 fL (80.0-100.0); MPV 7.6 fl. (7.2-11.1); NUCLEATED RBCS 0 /100WBC; PLATELET COUNT* 227 thou/uL (150-400); RBC 3.36 mil/uL (4.50-6.00); RDW-CV 16.6 % (10.5-14.5); WBC 19.3 thou/uL (4.0-11.0)
[2018-05-20 08:06] LABS: CALCIUM 7.7 mg/dL (8.5-10.1); POTASSIUM 4.3 mmol/L (3.5-5.1)
--- NOTE | 2018-05-20 08:33 | NUR ---
PT RESTING IN BED, APPEARS ALERT O X 4, DENIES CHST PAIN, DENIES SOB AT REST, ON O2 AT 4L PER NC, REFUSES FLUID RESTRICTIONS, ST SR ON MONITOR
[2018-05-20 08:43] LABS: ABSOLUTE LYMPHOCYTES 2.1 thou/uL (0.8-5.3); ABSOLUTE MONOCYTES 0.2 thou/uL (0.0-1.2); PLATELET ESTIMATE ADEQUATE
[2018-05-20 08:46] LABS: ANISOCYTOSIS 2+; HYPOCHROMASIA 1+; MICROCYTES 2+; OVALOCYTES 1+; POIKILOCYTOSIS 1+
--- NOTE | 2018-05-20 08:48 | NUR ---
PT RESTING IN BED, APPEARS ALERT O X 4, DENIES CHEST PAIN, SOB, DOES C/O R ANKLE PAIN
--- NOTE | 2018-05-20 10:30 | NUR ---
Tachycardic on monitor in 160s. Responded to roon. pt yp to bathroom, was not wearing. o x 4, appears dyspneic, o2 placed back on pt
--- NOTE | 2018-05-20 11:00 | NUR ---
pt resting in bed, appears anxious, hr 120s, on o2 at 4l per nc, pt upset stating wants to D/C. Dr Jeong on floor , asked that we obtain 12 lead ekg, pt refused, advised do not believe will d/c today, concerned about tachycardia , hbg < 8. advised pt need to retart IV m pt refuses. updated DR Mendez that pt refusing 12 lead ekg
[2018-05-20 11:52] VITALS: BP 115/66
[2018-05-20 14:45] VITALS: BP 102/56
[2018-05-20 16:00] VITALS: BP 160/82
--- NOTE | 2018-05-20 18:12 | NUR ---
PT RESTING IN BED, REMAINS ALERT O X 4, DENIES CHEST PAIN, DENIES SOB AT REST, ON O2 AT 4L PER NC. PT IS SOB WITH MINIMAL EXERTION. HAD TAKEN OFF O2 AND AMB TO BATHROOM THIS AM, BECAME EXTREMELY DYSPNEIC , TACHYCARDIC. HAD REFUSED 12 LEAD EKG AT TIME, PT IV WAS D/C IN AM SECONDARY TO LOSING PATENCY, PT THOUGHT PLAN WERE TO D/C IN AM , AND SWITCH TO PO STEROIDS. DR SON STATES NO PLAN TO D/C SECONDARY TO DSYSPNEA, TACHYCARDIA WITH EXERTION , AMD ANEMIA HEMATOLGY AND GI HAVE BEEN CONSULTED , CONT ON IV STEROIDS, AEROSOL TXS, IV ABX. PIV NOW IN L FA
[2018-05-20 20:00] VITALS: BP 140/65
[2018-05-21] VITALS (8 sets, daily range): BP systolic 113–150; BP diastolic 59–77
--- NOTE | 2018-05-21 03:31 | NUR ---
ORDER IRON PROFILE AND SPEP NOT ENTERED CONTACT LAB SPOKE WITH MARKY WHO FACILITATED, NOTED DURING CHART CHECK TO BE ADDED ON TO AM LABS
[2018-05-21 04:53] LABS: ABSOLUTE LYMPHOCYTES 0.3 thou/uL (0.8-5.3); ABSOLUTE MONOCYTES 0.7 thou/uL (0.0-1.2); ABSOLUTE NEUTROPHILS 17.1 thou/uL (1.6-8.1); BASOPHILS 0.1 %; HEMATOCRIT 22.8 % (42.0-52.0); HEMOGLOBIN 7.5 gm/dL (14.0-18.0); LYMPHOCYTES 1.9 %; MCH 23.1 pg (26.0-34.0); MCHC 32.7 g/dL (28.0-37.0); MCV 70.5 fL (80.0-100.0); MONOCYTES 3.8 %; MPV 7.8 fl. (7.2-11.1); NUCLEATED RBCS 0 /100WBC; PLATELET COUNT* 197 thou/uL (150-400); POLYS 94.2 %; RBC 3.24 mil/uL (4.50-6.00); RDW-CV 16.7 % (10.5-14.5); WBC 18.2 thou/uL (4.0-11.0)
--- NOTE | 2018-05-21 04:56 | NUR ---
ASSUMED CARE OF PATIENT AT 1900 THE PATIENT REMAINS SR WITH BBB ET PVC'S ON THE MONITOR O2 SAT MAINTAINED ON 4L NC CONTINUES TO BE UP WITH ASSIST OF 1 ET WALKER REPORTEDLY THE ROUTINE REGIMEN CONTINUES TO BE EFFECTIVE FOR SX MANAGEMENT PAIN AND ANXIETY IN PM ORDER OBTAINED [facility] REQUEST MADE TO SYSTEMS ACCOUNTANT [employer] FOR UNIT SUPPLY ALSO LET SUPERVISOR ROCKET [employer]OPELLANT PLANT BRETT KNOW OF NEED PATIENT PROGRESSING TOWARDS GOALS OF DISCHARGE PATIENT STATES HE IS LEAVING TODAY NO MATTER WHAT HE STARTED TO REFUSE MORNING LABS AND VITALS WITH ENCOURAGEMENT HE ALLOWED WITHOUT S/SX OF ACUTE DISTRESS PRESENTLY SAFETY INTERVENTIONS CONTINUE BED LOWERED WHEELS LOCKED CALL LIGHT IN REACH SIDE RAILS UP REPORT TO BE GIVEN TO ONCOMING DOTTY
[2018-05-21 05:18] LABS: ALBUMIN 2.3 g/dL (3.4-5.0); CALCIUM 7.5 mg/dL (8.5-10.1); MAGNESIUM 1.9 mg/dL (1.8-2.4); POTASSIUM 4.2 mmol/L (3.5-5.1); TOTAL BILIRUBIN 0.5 mg/dL (<0.1-1.0); TOTAL PROTEIN 4.7 g/dL (6.4-8.2)
[2018-05-21 05:55] LABS: % SATURATION 25 % (20-39); IRON 50 ug/dL (50-175)
[2018-05-21 06:51] LABS: ESR (SEDRATE) 0 mm/hr (0-20)
--- NOTE | 2018-05-21 08:03 | CON ---
[address] [address] CONSULTATION Name: PAULINO CONTRERAS Room: [address] IN M.R.#: [id number] Admission: 05/15/18 Attend Phys: Ethel Cruz MD Discharge: Date of : 54 Report #: [id number] THIS REPORT FOR: //name// CC: Ethel Ray DATE OF SERVICE: 05/20/2018 Hematology-Oncology Inpatient Consultation REASON FOR CONSULTATION: Microcytic anemia. HISTORY OF PRESENT ILLNESS: A 67-year-old male who had a past medical history of COPD, hypertension, BPH, and coronary artery disease who was admitted on 05/16 because of shortness of breath, which has been worsening. He reports chills, dizziness, and dry cough without any phlegm. Initial evaluation by CT scan on 05/15 showed extensive pleural calcifications involving the right lung base with a small fluid collection in addition to several prominent left basilar pleural calcifications. The process is consistent with asbestos. He also had small pleural based mass along the anterior left chest wall, partially calcified. I reviewed the report of his CT scan, which was done at on 04/22/2018, which showed marked pleural thickening associated with calcified pleural plaques involving both lungs, right more than the left. There has been increase since previous. The patient reported that he had kidney cancer back in 1996, for which he underwent what he described partial nephrectomy. REVIEW OF SYSTEMS: All systems reviewed, was negative except the above. PAST MEDICAL HISTORY: Including hypertension, BPH, COPD. MEDICATIONS: Per admission list. PAST SURGICAL HISTORY: Back surgery, right rotator cuff, renal tumor removal. ALLERGIES: No known allergies. FAMILY HISTORY: Mother with coronary artery disease and hypertension. SOCIAL HISTORY: He quit tobacco 2 years ago. He smoked 1 to 2 packs since the age of 14. He denies any alcohol abuse or drug abuse. PHYSICAL EXAMINATION: VITAL SIGNS: Temperature is 36.6, pulse is 117, respirations 20, blood pressure is 115/66, oxygen is 97% on 4 L. GENERAL: The patient was sitting in a chair. LUNGS: He had bilateral rales, scattered[place] [address] CONSULTATION Name: BENPAULINO A Room: [address]#: [id number] Admission: 05/15/18 Attend Phys: Ethel Cruz MD Discharge: Date of : 54 Report #: [id number] HEART: Tachycardic, but regular. S1, S2 within normal limits. ABDOMEN: Soft, nontender, nondistended, bowel sounds positive. EXTREMITIES: No edema, no cyanosis, no clubbing. LABORATORY DATA: Today, WBC 15.3, hemoglobin 7.6, MCV 69.8, platelets 227. Sodium is 129, creatinine 1.0. Iron was 82, TIBC 222, ferritin 351, bilirubin 0.4, folate 2.6. ASSESSMENT AND PLAN: 1. A 67-year-old male who was evaluated because of microcytic anemia. Reviewing his previous records, it has been evident for the last at least 2 years, which was microcytic. His iron stores are consistent with iron due to chronic disease, which can present with a microcytic anemia. In addition to that, his folate has been on the lower side. I recommend to start the patient on folate supplement. In addition to that, we will obtain serum electrophoresis, immunofixation, free light chain, and peripheral blood smear. 2. Calcification and small lung mass. Even though it has been stable within his most recent imaging, I would like to compare and ask interventional radiology for possible biopsy. I will follow the patient during hospitalization. <ELECTRONICALLY SIGNED> By: Josue Bright MD 05/21/18 [id number] Bright MD /nt
--- NOTE | 2018-05-21 11:26 | NUR ---
FOOD TRADES ASSISTANTS TRACKING SR WITH BBB. 02 ON 4L PER NC, SOA NOTED WITH ACTIVITY. REPORTING HAVING BACK DISCOMFORT - ANXIOUS, REASSURANCE GIVEN. JUST RECEIVED PAIN MEDICATION EARLIER, WILL GIVE REPEAT XANAX TO ASSIST WITH ANXIETY. IN BED HOB ELEVATED, CALL LIGHT WITHIN REACH. WILL MONITOR.
--- NOTE | 2018-05-21 11:30 | NUR ---
RIG MANAGER ALARMING SVT RATE 150'S WITH ACTIVITY - PATIENT UP TO BATHROOM HAD LARGE SOFT BM - INCREASE SOA - ASSIST GIVEN TO CHAIR. CALL PLACED TO RESPIRATORY, GIVEN BREATHING TREATMENT. RIG MANAGER TRACKING LOW 110 - ST RHYTHM. 02 REMAINS ON 4L PER NC - 02 SAT 99%. WILL CONTINUE TO MONITOR.
--- NOTE | 2018-05-21 16:08 | NUR ---
ASSUMED CARE OF PT. REPORT GIVEN FROM DOTTY CHA AT THIS TIME. PT IN CHAIR AND REFUSING TO HAVE PIX OF WOUND AT THIS TIME. PT SR/ST ON THE MONITOR AT THIS TIME. ALL OTHER VSS. WILL CONTINUE TO ASSESS AND MONITOR.
--- NOTE | 2018-05-21 18:02 | NUR ---
1730-PT CALLED OUT AND WAS AGITATED AFTER SPEAKING WITH DR SON REGARDING ANOTHER LUNG BIOPSY BEING ORDERED. PT IS DISGRUNTLED WITH HIS CARE AND STATED "I AM JUST GETTING WORSE HERE, WHY DON'T YOU JUST KILL ME AND GET IT OVER WITH" PT STATING THE PHYSICIANS "DO NOT KNOW WHAT THEY ARE DOING AND ALL I AM DOING IS GETTING WORSE". THIS RN DISCUSSED WITH THE PATIENT THAT HE IS REFUSING TREATMENTS THAT ARE RECOMMENDED BY THE PHYSICIANS (IE: FLUID RESTRICTION, IV LASIX, CARB CONTROLLED DIET). IT WAS ALSO EXPLAINED TO THE PATIENT THAT HE IS RECIEVING IV ABX CURRENTLY WELL. THIS RN CAME OUT AND DISCUSSED THE SITUATION WITH BOTH DOTTY DENNIS (HOUSE SUPERVISIOR) AND DR SON. DR SON STATED "PATIENT IS NOT ABLE TO LEAVE AMA UNTIL CONSULT WITH TELE PSYCH HAS OCCURED TO DETERMINE IF PATIENT HAS THE INSIGHT TO FULLY UNDERSTAND THE CONSEQUENCES OF LEAVING AMA". TELE PSYCH CONSULT PLACED. TELE PSYCH BROUGHT INTO PATIENT ROOM AND PT EDUCATED THAT THE TELE PSYCH CONSULT "IS TO DETERMINE IF THE HE HAS THE ABILITY TO UNDERSTAND THE CONSEQUENCES OF LEAVING THE HOSPITAL AGAINST MEDICAL ADVICE". PT AGREEABLE TO TELE PSYCH CONSULT. PT STILL REQUIRING PHOTOGRAPHS OF WOUND ON HIS BUTTOCK AT THIS TIME, WILL WAIT UNTIL CONSULT IS COMPLETE PT IS SITTING IN CHAIR AT THIS TIME. PT DAUGHTER CALLED UNIT AND ASKED WHAT WAS GOING ON, THIS RN EXPLAINED THAT THERE IS CONCERN REGARDING HER FATHER'S UNDERSTANDING OF WHAT THE CONSEQUENCES OF LEAVING AMA WOULD BE. SHE WAS UPDATED REGARDING THE REFUSAL OF TREATMENT THAT HAVE HAPPENED UP TO THIS POINT AND IT WAS EXPLAINED THAT HER FATHER IS NOT ABLE TO AMBULATE SAFELY, KEEP HIS HEART RATE AT A SAFE RATE WITH AMBULATION AND CANNOT KEEP HIS O2 SATS IN A SAFE RANGE WITH AMBULATION AT THIS TIME. FIBERGLASS LAMINATOR AND INSOLE LIP TURNER AARON UPDATED REGARDING ISSUE AND WILL PASS ON TO NEXT SHIFT.
[2018-05-21 18:05] LABS: IgA 166 mg/dL (61-437); IgG 565 mg/dL (700-1600); IgM 157 mg/dL (20-172)
[2018-05-22 04:00] VITALS: BP 145/71
[2018-05-22 05:01] LABS: CALCIUM 7.4 mg/dL (8.5-10.1); POTASSIUM 4.3 mmol/L (3.5-5.1)
[2018-05-22 05:02] LABS: HEMATOCRIT 23.6 % (42.0-52.0); HEMOGLOBIN 7.8 gm/dL (14.0-18.0); MCH 23.4 pg (26.0-34.0); MCHC 32.8 g/dL (28.0-37.0); MCV 71.3 fL (80.0-100.0); MPV 7.6 fl. (7.2-11.1); RBC 3.32 mil/uL (4.50-6.00); RDW-CV 18.3 % (10.5-14.5)
--- NOTE | 2018-05-22 05:18 | NUR ---
ASSUMED CARE OF PT AFTER REPORT AT 1930. PT A&OX4. VSS. PHYSICAL ASSESSMENT COMPLETED AND CHARTED. PT ON O2 VIA NC AT 5L WITH 100% O2 SAT. PT TRACING SR ON TELE. PT REPORTED UP WITH 2 ASSIST BUT REMAINS ON BED ALL NIGHT. WOUNG ON BUTTOCKS CLEANSED WITH WOUND CLEANSER AND PATTED DRY. APPLIED AQUACEL AG AND SECURED WITH DUODERM. PHOTOGRAPH TAKEN. AT 2319 TELEPSYCHE DOCTOR CALLED AND WILL HAVE CONFERENCE WITH THE PT BUT REFUSED AT THAT TIME. PT WANTS IT TO BE DONE IN AM INSTEAD. PT COMPLAINED OF BACK PAIN WITH PAIN SCALE OF 10/10-PAIN MEDS GIVEN PER MAR WITH PARTIAL RELIEF. PT RESTED WELL ON BED. HOURLY ROUNDING OBSERVED. CALL LIGHT WITHIN REACH.
[2018-05-22 08:00] VITALS: BP 163/74
[2018-05-22 11:34] VITALS: BP 134/79
--- NOTE | 2018-05-22 11:38 | NUR ---
PATIENT IS ALERT AN ORIENTED X 4 THIS AM. HE HAS TAKEN HIS MEDICATIONS WITHOUT DIFFICULTY. TELE SHOWS SR W BBB. HIS O2 IS AT 5 LITERS NC. PATIENT IS TAKING AMPLE FLUIDS AMD IS DIURESING WELL. BIOPSY PER CT ORDERED THIS AM AND LATER DISCONTINUED. PATIENT UPSET ABOUT ORDERED PROCEDURES AND BEING PLACED NPO. HEME/ONC DR IN TO ROUND AND ORDER CANCELLED. PATIENT MORE COOPERATIVE SINCE TEST WAS SCHEDULED. PATIENT IS RESTING QUIETLY AT THIS TIME.
[2018-05-22 12:05] LABS: KAPPA FREE LIGHT CHAINS 11.2 mg/L (3.3-19.4); LAMBDA FREE LIGHT CHAINS 17.4 mg/L (5.7-26.3)
--- NOTE | 2018-05-22 12:18 | NUR ---
Pt continues to be non compliant with some orders. Pt threatened to leave AMA yesterday, but today seems content. Plan continues to be to dc to home once ready. Following.
[2018-05-22 15:09] LABS: CALCIUM 7.5 mg/dL (8.5-10.1); CREATININE 0.9 mg/dL (0.6-1.3); POTASSIUM 4.5 mmol/L (3.5-5.1)
--- NOTE | 2018-05-22 15:22 | NUR ---
CONTINUE TO FOLLOW, ORDERS NOTED FOR DC HOME WITH HH, DISCUSSED WITH DR FERNANDEZ, PLAN ON . IF NOT AGREEABLE TO HOME ON , CONSIDER SNF. MET WITH PT AND EXPLAINED DC PLAN. HE WANTS TO GO HOME WITH HH. DISCUSSED OPTIONS AND WANTS GOOD 'THERAPY.' CHOSE [facility]. CALLED AND FAXED ORDERS TO [facility]. PT/OT ORDERED, EXPLAINED TO PT IMPORTANCE OF COOPERATING WITH THERAPY EVALS AND THAT CM WOULD F/U TOMORROW.
[2018-05-22 15:25] VITALS: BP 134/79
[2018-05-22 15:45] VITALS: BP 134/76
[2018-05-22 16:07] LABS: GLOBULIN TOTAL 1.7 g/dL (2.2-3.9); M-SPIKE Not Observed g/dL (Not Observed)
[2018-05-22 20:00] VITALS: BP 132/72
[2018-05-23] VITALS: BP 173/79
--- NOTE | 2018-05-23 03:23 | NUR ---
PATIENT RESTING MOST OF THE NIGHT WITHOUT COMPLAINTS OF PAIN, DISCOMFORT OR SOA. BED IN LOW POSITION, CALL LIGHT IN REACH. BED ALARM ON. NO SIGN OF DISTRESS, CONT. WITH CURRENT PLAN OF CARE AT THIS TIME.
[2018-05-23 07:50] VITALS: BP 168/78
[2018-05-23 08:41] LABS: ABSOLUTE LYMPHOCYTES 0.2 thou/uL (0.8-5.3); ABSOLUTE MONOCYTES 0.6 thou/uL (0.0-1.2); BASOPHILS 0.1 %; HEMATOCRIT 25.7 % (42.0-52.0); HEMOGLOBIN 8.4 gm/dL (14.0-18.0); LYMPHOCYTES 1.5 %; MCH 23.6 pg (26.0-34.0); MCHC 32.7 g/dL (28.0-37.0); MPV 7.9 fl. (7.2-11.1); NUCLEATED RBCS 0 /100WBC; PLATELET COUNT* 169 thou/uL (150-400); POLYS 94.4 %; RBC 3.57 mil/uL (4.50-6.00); RDW-CV 21.6 % (10.5-14.5); WBC 14.8 thou/uL (4.0-11.0)
[2018-05-23 08:48] LABS: CALCIUM 7.2 mg/dL (8.5-10.1); CREATININE 0.9 mg/dL (0.6-1.3); POTASSIUM 4.4 mmol/L (3.5-5.1)
[2018-05-23] MEDS ORDERED: VENTOLIN HFA 1818 GM INH (09:38)
[2018-05-23] MEDS ORDERED: PREDNISONE 10 M10 MG PO (09:38)
[2018-05-23] MEDS ORDERED: ALPRAZOLAM0.5 M2 PO (09:38)
[2018-05-23 09:43] VITALS: BP 134/79
[2018-05-23 09:50] VITALS: BP 134/79
--- NOTE | 2018-05-23 10:28 | NUR ---
Pt discharging to home today with [facility]. Faxed dc orders. Pt states that his brother will provide dc transportation. US Maribel, was able to schedule BM biopsy at [facility] for TuesdayMay 29 at 9:30am, info provided to Pt.
[2018-05-23] MEDS ORDERED: FLORASTOR250 MG PO (10:37)
[2018-05-23] MEDS ORDERED: PROZAC20 MG PO (11:00)
[2018-05-23] MEDS ORDERED: SINGULAIR 10 MG10 M1 PO (11:04)
[2018-05-23] MEDS ORDERED: IPRAT-ALBUT 0.5-3 ML INH (11:07)
[2018-05-23] MEDS ORDERED: LEVAQUIN 500 M500 M2 PO (11:45)
--- NOTE | 2018-05-23 11:59 | NUR ---
PT DISCHARGE COMPLETE. IV REMOVED INTACT. VSS THIS SHIFT HOWEVER PT HR STILL INCREASES WITH AMBULATION AND REQUIRING HOME BASELINE OF 4L O2 PER NC AT THIS TIME. WOUND CLEANED, REDRESSED AND PHOTOGRAPHED PRIOR TO DC TODAY BY THIS RN. PT PROVIDED WITH 6 PRESCRIPTIONS AND VERBALIZED UNDERSTANDING REGARDING DC MEDICATIONS AND INSTRUCTIONS. PT NOTIFIED REGARDING FOLLOW UP APPT, AND BONE MARROW BIOPSY-NOTED ON DC PAPERS HOW TO CALL FOR CHANGES TO APPOINTMENT OR QUESTIONS. PT DRESSED AND READY TO LEAVE UPON DC WITH FAMILY TO TAKE HIM TO PHARMACY AND HOME. PT WILL GO DOWN IN WC WITH STAFF.
--- NOTE | 2018-05-23 13:08 | NUR ---
UPON P.T. ARRIVAL FOR EVAL, PT WAS GETTING INTO WHEELCHAIR TO BE DISCHARGED FROM HOSPITAL. THEREFORE NO P.T. EVAL COMPLETED PT BEING DISCHARGED.
--- NOTE | 2018-05-29 15:10 | CON ---
[address] [address] CONSULTATION Name: PAULINO CONTRERAS Room: [address] IN M.R.#: [id number] Admission: 05/15/18 Attend Phys: Ethel Cruz MD Discharge: 05/23/18 Date of : 54 Report #: [id number] THIS REPORT FOR: //name// CC: Brittnee Ray DO DATE OF SERVICE: 05/21/2018 REFERRING DOCTOR: Dr. Ethel Cruz. REASON FOR CONSULTATION: Anemia. IMPRESSION: 1. Microcytic anemia, most compatible with anemia of chronic disease -- cannot rule out some element of iron deficiency. 2. Chronic obstructive pulmonary disease, which is oxygen dependent. 3. Pleural disease, likely related to asbestosis with patient having undergone a biopsy for the same. 4. Obstructive sleep apnea with the patient being noncompliant with CPAP. 5. Hyponatremia secondary to excess free water intake. 6. Noncompliance with most recommendations. RECOMMENDATIONS: 1. I did not get any history from the patient that he has active problems related to his upper or lower GI tract. However, he is not really terribly excited about seeing anyone else at this point in time. While he has had a colonoscopy in the remote past, he is not the least bit interested in pursuing any endoscopic studies now nor in the future. He wants to leave as soon as possible. 2. I will defer his anemia workup to Dr. Mobley at this point in time as already deemed. The anemia is related to chronic disease. We will be available if need be. 3. If he should eventually need to undergo endoscopic evaluation and is agreeable to same, he would need to undergo both upper and lower endoscopy on the inpatient side of the hospital due to his underlying medical issues. We will otherwise sign off at this time. HISTORY OF PRESENT ILLNESS: The patient is a 67-year-old white male with multitude of medical problems who was referred to us for evaluation of anemia. He has underlying history of oxygen-dependent COPD with noncompliance related to same and had been on and off steroids for the same. He also has [facility] [place] [address] CONSULTATION Name: PAULINO CONTRERAS Room: [address]#: [id number] Admission: 05/15/18 Attend Phys: Ethel Cruz MD Discharge: 05/23/18 Date of : 54 Report #: [id number] plaques, which may be related to asbestosis. He has been in and out of 2 different hospitals here and at [facility] and has left [place] on multiple occasions. He is readmitted to the hospital because of shortness of breath with no other issues. We were asked to see him for his anemia. He denies any complaints referable to his upper or lower GI tract. He denies complaints of dysphagia, odynophagia, chronic reflux or postprandial pain. He has not had any problem with his bowels or bowel frequency. He has not had any black stools, tarry stools or any blood in his stools. He knows of no known family history of any GI problems other than diverticular disease. He has no history of colon polyps or colon cancer. He states he has undergone endoscopic studies of his lower GI tract in the past, but it has been years ago and he does not remember where or when nor is he interested in talking about it anymore. ALLERGIES: None. MEDICATIONS: Include methylprednisone 40 mg IV q. 8 hours, folic acid, throat lozenges, hydrocodone 10/325 up to 3 times daily, alprazolam, pantoprazole 40 mg daily, fluoxetine 40 mg daily, montelukast 10 mg daily, tamsulosin 0.4 mg daily, ipratropium bromide with albuterol inhalation q. 4 hours. He is also on electrolyte protocol. He also gets morphine sulfate 48 mg p.r.n. every 3 hours, ipratropium bromide with albuterol inhalers every 3 hours, levothyroxine. PAST MEDICAL AND SURGICAL HISTORY: Remarkable for COPD which is oxygen dependent with history of needing CPAP for his sleep apnea as well. He has history of SVT. He has chronicity to his shortness of breath and has history of asbestos exposure. He does not wear CPAP on a regular basis. He has history of hypertension. He has had previous thoracotomy in the past with no details regarding the same. He has had previous shoulder surgery. He has BPH. He has had history of a kidney tumor, back surgeries, hyponatremia secondary to excess fluid intake. SOCIAL HISTORY: The patient has extensive history of smoking, but will not quantify it. He did quit smoking, recently switched to e-cigarettes. He also drinks alcohol on a daily basis, but he would not quantify the same. 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 FAMILY HISTORY: As above. PHYSICAL EXAMINATION: GENERAL: Revealed ill-appearing 67-year-old gentleman, who appears older than stated age. CARDIOPULMONARY EXAMINATION: Revealed a regular rhythm. He does have some wheezes. ABDOMEN: Soft and tender. No rebound or guarding noted. [address] [address] CONSULTATION Name: PAULINO CONTRERAS Room: [address]#: [id number] Admission: 05/15/18 Attend Phys: Ethel Cruz MD Discharge: 05/23/18 Date of : 54 Report #: [id number] LABORATORY DATA: From today revealed a white count of 18.2, hemoglobin 7.5, platelet count 197,000. His MCV is 70.5 and RDW 16.7. In comparing his laboratory test of 2010, white count was 12.2, hemoglobin 11.2, platelet count 296,000. His MCV was 89 and RDW was 13 at that time. His sodium is 128, potassium 4.2, chloride 94, bicarbonate is 33, his BUN is 14, creatinine 1.0. His total bilirubin 0.5, alkaline phosphatase is 44, AST 12, ALT 29. His albumin is 2.3. His BNP is 1297. TSH is 2.31. His iron saturation is 25. His ferritin is 351. A soluble transferrin receptor assay is pending. Folic acid level was low at 2.6 with normals being 8.6-58.9. His B12 level is 552. DISCUSSION: At the present time, the patient has significant anemia, but is not interested in pursuing any endoscopic studies. There is nothing to suggest GI blood loss, but certainly it has been over a number of years since he had a colonoscopy. The patient is agreeable to same and he has to get it done on an inpatient side and cannot be done at an [facility]. We will hold off on any endoscopic studies at this point in time. He can follow up with us as needed. <ELECTRONICALLY SIGNED> By: Pancho Benson DO 05/29/18 1510 1721 [id number] Benson DO /nt
[2018-06-14] MEDS ORDERED: LEVALBUTER1.25 MG/0. INH (11:55)
== END 2018-05-23 12:00 | disposition home health service (06) | DRG 871 ==
LOC: M.ERS 19:59 → M.TBA-ER 21:14 → M.2W 21:14
PROVIDERS: Emergency Medicine; Family Medicine; Internal Medicine; Internal Medicine Critical Care Medicine; ADMIT Internal Medicine
DX: A41.9 Sepsis, unspecified organism (principal); J18.9 Pneumonia, unspecified organism; J96.21 Acute and chronic respiratory failure with hypoxia; J44.1 Chronic obstructive pulmonary disease with (acute) exacerbation; J44.0 Chronic obstructive pulmonary disease with (acute) lower respiratory infection; J98.11 Atelectasis; E87.1 Hypo-osmolality and hyponatremia; E46 Unspecified protein-calorie malnutrition; I47.1 Supraventricular tachycardia; E66.2 Morbid (severe) obesity with alveolar hypoventilation; R65.20 Severe sepsis without septic shock; I10 Essential (primary) hypertension; D50.9 Iron deficiency anemia, unspecified; J61 Pneumoconiosis due to asbestos and other mineral fibers; D63.8 Anemia in other chronic diseases classified elsewhere; I25.10 Atherosclerotic heart disease of native coronary artery without angina pectoris; N40.0 Benign prostatic hyperplasia without lower urinary tract symptoms; E83.51 Hypocalcemia; Z68.30 Body mass index [BMI] 30.0-30.9, adult; Z91.14 Patient's other noncompliance with medication regimen; Z87.891 Personal history of nicotine dependence; Z99.81 Dependence on supplemental oxygen; Z79.899 Other long term (current) drug therapy; Z82.49 Family history of ischemic heart disease and other diseases of the circulatory system

== ENCOUNTER 2018-05-25 10:41 | Inpatient (IN) | payer OTHER ==
[~2018-05-25] VITALS: Ht 180.3 cm; Wt 91.4 kg
[~2018-05-25 10:41] MED LIST changes: +ALPRAZOLAM0.5 M2 PO; +FLORASTOR250 MG PO; +IPRAT-ALBUT 0.5-3 ML INH; +LEVAQUIN 500 M500 M2 PO; +PROZAC20 MG PO; +VENTOLIN HFA 1818 GM INH
[2018-05-25 10:45] VITALS: BP 110/53
[2018-05-25 11:13] LABS: HEMATOCRIT 25.8 % (42.0-52.0); HEMOGLOBIN 8.5 gm/dL (14.0-18.0); MCHC 32.9 g/dL (28.0-37.0); MCV 72.9 fL (80.0-100.0); MPV 8.2 fl. (7.2-11.1); NUCLEATED RBCS 0 /100WBC; PLATELET COUNT* 130 thou/uL (150-400); RBC 3.54 mil/uL (4.50-6.00); WBC 12.2 thou/uL (4.0-11.0)
[2018-05-25 11:23] LABS: ANION GAP 4 mmol/L (7-16); BUN 17 mg/dL (7-18); CALCIUM 7.9 mg/dL (8.5-10.1); CHLORIDE 95 mmol/L (98-107); CO2 30 mmol/L (21-32); CREATININE 1.1 mg/dL (0.6-1.3); GLUCOSE 89 mg/dL (70-99); POTASSIUM 3.7 mmol/L (3.5-5.1); SODIUM 129 mmol/L (136-145)
[2018-05-25 11:26] LABS: APTT 24.3 Seconds (25.0-31.3)
[2018-05-25 11:34] LABS: ALBUMIN 2.8 g/dL (3.4-5.0); ALKALINE PHOSPHATASE 46 U/L (46-116); NT-PRO BRAIN NAT PEPTIDE 1064 pg/mL (<300); SGOT 23 U/L (15-37); SGPT 28 U/L (30-65); TOTAL BILIRUBIN 1.3 mg/dL (<0.1-1.0); TOTAL PROTEIN 5.1 g/dL (6.4-8.2); TROPONIN-I LEVEL <0.06 ng/mL (<0.06)
[2018-05-25 11:36] LABS: ABSOLUTE LYMPHOCYTES 0.2 thou/uL (0.8-5.3); ANISOCYTOSIS 3+; OVALOCYTES 3+; PLATELET ESTIMATE ADEQUATE
[2018-05-25 11:37] LABS: HYPOCHROMASIA 2+; MICROCYTES 1+
--- NOTE | 2018-05-25 12:35 | NUR ---
ED CONTACTED CT AT 12:35 PATIENT REFUSED CTA CHEST
[2018-05-25 14:44] VITALS: BP 108/59
[2018-05-25 15:02] VITALS: BP 131/48
[2018-05-25 20:00] VITALS: BP 120/62
[2018-05-26] VITALS: BP 122/71
[2018-05-26 04:00] VITALS: BP 145/73
--- NOTE | 2018-05-26 04:49 | NUR ---
ASSUMED CAR OF PT AFTER REPORT AT 1930. PT A&OX4. VSS. PHYSICAL ASSESSMENT COMPLETED AND CHARTED. PT ON O2 VIA NC AT 4L WITH 100% O2 SAT. PT TRAING SR BBB OCCASIONAL PVC'S ON TELE. PT REPORTED UP WITH 1 ASSIST BUT REMAINS ON BED ALL NIGHT. PT WITH WOUND ON LEFT BUTTOCKS CLEANSED WITH STERILE WATER. PHOTOGRAPH TAKEN. PT COMPLAINED OF BACK PAIN AND RIGHT SHOULDER PAIN WITH PAIN SCALE OF 10/10-PAIN MEDS GIVEN WITH PARTIAL RELIEF. PT REFUSED TO BE TURNED TO SIDES. EDUCATION GIVEN ON THE IMPORTANCE OF REPOSITIONING. COMMUNICATES UNDERSTANDING. HOURLY ROUNDING OBSERVED. CALL LIGHT WITHIN REACH.
--- NOTE | 2018-05-26 07:15 | NUR ---
CHANGE OF SHIFT NEDSIDE REPORT GIVEN PATIENT SEEN AT BEDSIDE IN BED AND RESTING ASSUMED PATIENT CARE
[2018-05-26 08:00] VITALS: BP 140/67
--- NOTE | 2018-05-26 10:23 | EKG ---
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 : 1950 Requested By: Sesar Humphrey Order Number: [id number] MD: Kirill Jean Measurements Intervals [place] Rate: 130 P: 78 NE: 134 QRS: -24 QRSD: 126 T: 11 QT: 329 QTc: 484 Interpretive Statements Sinus tachycardia with irregular rate Right bundle branch block Compared to ECG 05/15/2018 20:17:18 Ventricular premature complex(es) no longer present Electronically Signed On 05-26-2018 10:23:21 CDT by Kirill Jean [email or web address] <ELECTRONICALLY SIGNED> By: Kirill Jean MD, [facility] 05/26/18 1023 1107 1107 Kirill Jean MD, [facility] /EPI
--- NOTE | 2018-05-26 10:26 | EKG ---
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: : [id number] Requested By: Sofy Saldaña Order Number: [id number] Reading MD: Kirill Jean Measurements Intervals [place] Rate: 124 P: DE: QRS: 75 QRSD: 130 T: 13 QT: 331 QTc: 476 Interpretive Statements Atrial flutter/fibrillation Right bundle branch block ST elevation, consider inferior injury Baseline wander in lead(s) V6 Compared to ECG 05/15/2018 20:17:18 ST (T wave) deviation now present Myocardial infarct finding now present Sinus tachycardia no longer present Ventricular premature complex(es) no longer present Electronically Signed On 05-26-2018 10:26:06 CDT by Kirill Jean [email or web address] <ELECTRONICALLY SIGNED> By: Kirill Jean MD, [facility] 05/26/18 1026 8 8 Kirill Jean MD, [facility] /EPI
[2018-05-26] MEDS ORDERED: VENTOLIN HFA 1818 GM INH (10:53)
[2018-05-26] MEDS ORDERED: XANAX 0.5 MG0.5 MG PO (10:54)
[2018-05-26] MEDS ORDERED: PREDNISONE 10 M10 MG PO (10:56)
[2018-05-26] MEDS ORDERED: CARDURA4 MG PO (10:56)
[2018-05-26] MEDS ORDERED: NAPROSYN500 MG PO (10:57)
[2018-05-26 12:06] VITALS: BP 103/51
[2018-05-26 12:13] LABS: ABSOLUTE LYMPHOCYTES 0.2 thou/uL (0.8-5.3); ABSOLUTE MONOCYTES 0.3 thou/uL (0.0-1.2); ABSOLUTE NEUTROPHILS 6.7 thou/uL (1.6-8.1); BASOPHILS 0.4 %; HEMOGLOBIN 8.3 gm/dL (14.0-18.0); LYMPHOCYTES 2.4 %; MCH 24.5 pg (26.0-34.0); MCHC 33.3 g/dL (28.0-37.0); MCV 73.5 fL (80.0-100.0); MONOCYTES 3.9 %; MPV 8.4 fl. (7.2-11.1); NUCLEATED RBCS 0 /100WBC; PLATELET COUNT* 118 thou/uL (150-400); POLYS 93.3 %; RBC 3.41 mil/uL (4.50-6.00); RDW-CV 24.3 % (10.5-14.5); WBC 7.2 thou/uL (4.0-11.0)
[2018-05-26 12:14] LABS: CALCIUM 7.9 mg/dL (8.5-10.1); CREATININE 1.1 mg/dL (0.6-1.3); MAGNESIUM 2.4 mg/dL (1.8-2.4); POTASSIUM 3.3 mmol/L (3.5-5.1)
--- NOTE | 2018-05-26 14:16 | NUR ---
WOUND CARE NOTE: CONSULT RECEIVED FOR WOUND ON LEFT BUTTOCK. PATIENT KNOWN TO ME FROM PREVIOUS HOSPITAL STAY. ULCERATION SUPERIOR TO LARGER WOUND HAS HEALED. HEALING STAGE 3 TO THE LEFT BUTTOCK MEASURES 2.1X1.8X0.2. MOIST, PINK WOUND BED TO 90% OF WOUND WITH 10% OF WOUND HAS A YELLOW ADHERENT SLOUGH. YEE-WOUND WITH MOISTURE RELATED BREAKDOWN. PATIENT HAD AN INCONTINENCE OF STOOL EPISODE. CLEANSED WOUND WITH WOUND CLEANSER, PATTED DRY. APPLIED AQUACEL AG TO WOUND BED. PLACED SKIN PREP TO YEE-WOUND. APPLIED EXUDERM TO SECURE. PATIENT TOLERATED DRESSING CHANGE WELL. EDUCATED PATIENT ON KEEPING OFF AREA, PATIENT STATES HE TRIES. RECOMMEND CONTINUE ENCOURAGING TO TURN Q2 HOURS ENCOURAGE GOOD NUTRITION/HYDRATION
--- NOTE | 2018-05-26 14:38 | NUR ---
MET WITH PT TO DISCUSS HOME SITUATION/DC PLANNING. PT KNOWN TO CM FROM PREVIOUS HOSPITAL STAY, WAS DC'D 05/23. PT LIVES WITH SON, WHO WORKS. PT HAS WALKER AND CANE, O2 AND NEBULIZER THRU [facility]. HE WAS SET UP WITH [facility] AT [place], THEY SAW HIM AND SENT PT BACK TO HOSPITAL SUGGESTING SNF. SNF WAS ALSO DISCUSSED WITH PT AT LAST DC, DECLINED AT THAT TIME WANTING TO GO HOME. HE STATES NOW THAT 'THAT DIDN'T WORK OUT, THEY TOLD ME I WAS GOING TO [facility].' TALKED WITH PT ABOUT SNF, OFFERED OPTIONS. HE WANTS TO CONSIDER [facility]. CALLED AND FAXED REFERRAL TO [facility]. ASKED THAT LIASON COME SEE PT TO DISCUSS. WILL FOLLOW
[2018-05-26 16:00] VITALS: BP 109/69
--- NOTE | 2018-05-26 17:28 | NUR ---
PATIENT LAYING IN BED RESTING AND WATCHING TV SA THIS PM RATES 70S-80S MOMENTS OF AFIB, SVT THIS AM LUNGS DIM O2 SAT 99% O2 4L NC POOR APPETITE LAST BM TODAY UO GOOD, YELLOW URINE UP WITH 1 ASSIST TO CHAIR IV L AC 20 GA SL C/O PAIN TREATED WITH HYDROCODONE PRN C/O ANXIETY TREATED WITH XANAX PRN CALL LIGHT IN REACH AND INSTRUCTION GIVEN AND FOLLLOWED L BUTTOCKS 2 WOUNDS CLEANED AND DRESSED TODAY
[2018-05-26 20:00] VITALS: BP 115/56
[2018-05-27] VITALS: BP 128/65
[2018-05-27 04:00] VITALS: BP 127/55
--- NOTE | 2018-05-27 04:42 | NUR ---
ASSUMED CARE OF PT AFTER REPORT AT 1930. VSS. PHYSICAL ASSESSMENT COMPLETED AND CHARTED. PT ON O2 VIA NC AT 2L WITH 100% O2 SAT. PT TRACING PAC/ SR BBB ON TELE. PT REPORTED UP WITH 1 ASSIST BUT REMAINS ON BED ALL NIGHT. PT COMPLAINED OF RIGHT SHOULDER AND BACK PAIN-PAIN MEDS GIVEN PER MAR WITH PARTIAL RELIEF. PT REQUESTED FOR HEATING PAD AND PLACED IT IN RIGHT SHOULDER. PT POTASSIUM 3.3-DR MATHEWS INFORMED WITH NEW ORDERS. ELECTROLYTE PROTOCOL INITIATED ORDERED. PT REFUSED TO BE TURNED Q2H. EDUCATION GIVEN. COMMUNICATES UNDERSTANDING AND CLAIMED HE WILL DO IT BY HIMSELF. HOURLY ROUNDING OBSERVED. CALL LIGHT WITHIN REACH.
--- NOTE | 2018-05-27 07:15 | NUR ---
CHANGE OF SHIFT BEDSIDE REPORT GIVEN PATIENT SEEN AT BEDSIDE, IN BED ASLEEP ASSUMED PATIENT CARE
[2018-05-27 08:00] VITALS: BP 131/69
[2018-05-27 12:00] VITALS: BP 129/58; BP 84/45
[2018-05-27 16:13] VITALS: BP 123/68
--- NOTE | 2018-05-27 18:30 | NUR ---
PATIENT REMAINS A AND O X 4 NSR O2 4L NC O2 SAT 99% GOOD APPETITE LAST BM T-1 GOOD UO CLEAR, YELLOW UP WITH 1 ASSIST IV L AC 20 GA SL C/O R SHOULDER/BACK PAIN NORCO GIVEN PRN C/O ANXIETY XANAX GIVEN PRN CALL LIGHT IN REACH AND INSTRUCTION GIVEN AND FOLLOWED
[2018-05-27 19:35] VITALS: BP 120/58
[2018-05-28] VITALS: BP 127/63
--- NOTE | 2018-05-28 03:25 | NUR ---
AAOX4 RESP REG AND UNLABORED SKIN W/D NO ACUTE DISTRESS NOTED. DRESSING TO RIGHT BUTTOCK CHANGED ORDERED. BARRIER CREAM APPLIED TOBACK OF UPPER THIGHS AND BETWEEN THIGHS D/T RENESS NOTED. TELEMETRY PACK INTACT WITH ALARMS SET. VSS AND NO ACUTE CHANGES DURIGN SHIFT WILL CONTINUE TO MONITOR
[2018-05-28 04:00] VITALS: BP 114/60
[2018-05-28 07:12] LABS: HEMATOCRIT 26.4 % (42.0-52.0); HEMOGLOBIN 8.7 gm/dL (14.0-18.0); MCHC 33.1 g/dL (28.0-37.0); MCV 75.5 fL (80.0-100.0); MPV 8.3 fl. (7.2-11.1); RBC 3.49 mil/uL (4.50-6.00); RDW-CV 25.3 % (10.5-14.5); WBC 8.9 thou/uL (4.0-11.0)
--- NOTE | 2018-05-28 07:15 | NUR ---
CHANGE OF SHIFT BEDSIDE REPORT GIVEN PATIENT SEEN AT BEDSIDE IN BED ASLEEP ASSUMED PATIENT CARE
[2018-05-28 07:26] LABS: ALBUMIN 2.3 g/dL (3.4-5.0); ALKALINE PHOSPHATASE 42 U/L (46-116); ANION GAP < 0 mmol/L (7-16); BUN 13 mg/dL (7-18); CALCIUM 7.2 mg/dL (8.5-10.1); CHLORIDE 95 mmol/L (98-107); CO2 34 mmol/L (21-32); CREATININE 0.9 mg/dL (0.6-1.3); GLUCOSE 129 mg/dL (70-99); SGOT 13 U/L (15-37); SGPT 25 U/L (30-65); SODIUM 126 mmol/L (136-145); TOTAL BILIRUBIN 0.8 mg/dL (<0.1-1.0); TOTAL PROTEIN 4.7 g/dL (6.4-8.2)
[2018-05-28 08:00] VITALS: BP 145/70
[2018-05-28 12:00] VITALS: BP 136/60
--- NOTE | 2018-05-28 14:57 | NUR ---
ORDERED FLUID RESTRICTION PATIENT INFORMED OF 1750CC FLUID RESTRICTION PATIENT RAISED VOICE, CURSED, AND SAID HE WAS FIRING DR AND HE WAS GOING HOME AND CHARGE NURSE NOTIFIED AND TO TO DISCUSS SITUATION PATIENT ADIMIT ABOUT LEAVING CALLED ASSEMBLER BILLIARD TABLE TO DISCUSS SITUATION PATIENT CONTINUS TO YELL AND CURSE SECURITY CALLED DUE TO BEHAVIOR SECURITY AND REGISTERED NURSE BEHAVIORAL HEALTH TO ROOM DISCUSSED WITH PATIENT HIS CONCERNS AND DRS ORDERS PATIENT REFUSES TO FOLLOW FLUID RESTRITION ORDER AND CALLS SON TO COME TAKE HIM HOME IV AND HEART MONITOR REMOVED AWAITING SON TO [facility] HOME PATIENT
--- NOTE | 2018-05-28 15:00 | NUR ---
PATIENT LEFT AMA IN WC WITH STAFF ASSISTANCE WITH TRANSPORTATION FROM SON IV AND HEART MONITOR REMOVED AND PERSONAL BELONGINGS RETURNED
--- NOTE | 2018-06-09 09:14 | CON ---
[address] [address] CONSULTATION Name: PAULINO CONTRERAS Room: [address] IN M.R.#: [id number] Admission: 05/25/18 Attend Phys: Munira Roberts Discharge: 05/28/18 Date of : 54 Report #: [id number] THIS REPORT FOR: //name// CC: Sofy Wolfenton DATE OF SERVICE: 05/26/2018 REQUESTING PHYSICIAN: Sofy Saldaña MD REASON FOR CONSULTATION: Atrial fibrillation. HISTORY OF PRESENT ILLNESS: The patient is a 67-year-old male who has a history of COPD and presented with weakness, severe pain in his back and shortness of breath. He was found to have a COPD exacerbation. He has a baseline oxygen requirement of 4 liters at home. He has been receiving aggressive medical therapy while inpatient. He did have an ECG on presentation, which was concerning for possible atrial fibrillation. The study in question has a lot of artifact and it is not clear as to whether or not he actually was in AFib. His baseline rhythm on telemetry monitoring has been a sinus tachycardia with a multifocal atrial tachycardia and/or frequent PACs, in a sinus rhythm. Clinically, the patient denies palpitations, heart racing or chest discomfort or pressure. He has no documented history of heart disease. He did have an echocardiogram, which shows grossly normal LV function. He has no history of strokes, TIAs. He does have numerous cardiovascular risk factors. He has a significant debilitation from chronic back pain. He walks with a walker and does have a history of falls. He has a history of ethanol abuse, COPD, hypertension. HOME MEDICATIONS: Include alprazolam, prednisone, albuterol, Protonix, tamsulosin, losartan 100 mg daily, amlodipine 10 mg daily, albuterol, Atrovent, levofloxacin. SOCIAL HISTORY: He lives with his son. He has almost a 54-iqdb-jvtl smoking history, but quit a year ago. REVIEW OF SYSTEMS: GENERAL: No fevers or chills. MUSCULOSKELETAL: Positive weakness, positive back pain, positive shoulder pain, neck pain. CARDIOVASCULAR: No chest pain, no orthopnea, no PND. Positive dyspnea on exertion[place] [address] CONSULTATION Name: PAULINO CONTRERAS J[place] Room: [address]#: [id number] Admission: 05/25/18 Attend Phys: Munira Roberts Discharge: 05/28/18 Date of : 54 Report #: [id number] NEUROLOGIC: Denies headaches, blurry vision, slurred speech or seizures. HEMATOLOGIC: No anemia or bleeding disorders. RENAL: No history of kidney failure. PHYSICAL EXAMINATION: VITAL SIGNS: Blood pressure 103/51, pulse is 85 in sinus rhythm, temperature is 36.7, O2 sat on 4 liters is 92%. GENERAL: This is an unkempt elderly male. He is alert, but in no apparent distress. HEENT: Eyes are intact. No facial asymmetry. NECK: Supple. No jugular venous distention. Carotid upstrokes are normal. CARDIOVASCULAR: Regular. I cannot hear a murmur. LUNGS: Diminished breath sounds with expiratory wheezes. ABDOMEN: Nontender. EXTREMITIES: There is no peripheral edema. No neuro focal deficits. DATABASE: Electrocardiogram shows a sinus rhythm, frequent PACs; when he was possibly in atrial fibrillation, his heart was 124. There are PVCs and artifact. Echocardiogram shows an EF of 65-70%, grade 1 abnormal relaxation and no significant valvular abnormalities. This was on 05/09/2018 from a previous hospitalization for COPD exacerbation. IMPRESSION: 1. Paroxysmal atrial fibrillation. He might have been in atrial fibrillation. The predominant rhythm is sinus based on his telemetry. He has frequent PACs. He is not a candidate for anticoagulation because of his fall history and ethanolism. I would continue with a low dose of beta el and a baby aspirin. 2. Chronic obstructive pulmonary disease exacerbation. I would continue with aggressive medical therapy. He has preserved left ventricular systolic function fortunately. 3. Hypertension. Continue with his current medical therapy plus a beta-el. 4. Debilitation. Continue with physical therapy. Thank you for allowing us to participate in his care. <ELECTRONICALLY SIGNED> By: Kirill Jean MD, FACC 06/09/18 0914 1438 0501Kirill Jean MD, FACC /nt
[2018-06-14] MEDS ORDERED: LEVALBUTER1.25 MG/0. INH (11:55)
== END 2018-05-28 14:20 | disposition left against medical advice (07) | DRG 871 ==
LOC: M.ERS 10:41 → M.2W 13:02 → M.TBA-ER 13:02 → M.2W 15:06
PROVIDERS: Emergency Medicine Emergency Medical Services; Family Medicine; ADMIT Internal Medicine
DX: A41.9 Sepsis, unspecified organism (principal); L89.323 Pressure ulcer of left buttock, stage 3; I50.43 Acute on chronic combined systolic (congestive) and diastolic (congestive) heart failure; J44.1 Chronic obstructive pulmonary disease with (acute) exacerbation; E44.0 Moderate protein-calorie malnutrition; B37.0 Candidal stomatitis; J98.11 Atelectasis; E87.1 Hypo-osmolality and hyponatremia; I11.0 Hypertensive heart disease with heart failure; I48.0 Paroxysmal atrial fibrillation; F41.1 Generalized anxiety disorder; G89.29 Other chronic pain; D50.9 Iron deficiency anemia, unspecified; N40.0 Benign prostatic hyperplasia without lower urinary tract symptoms; I49.3 Ventricular premature depolarization; M54.9 Dorsalgia, unspecified; M25.519 Pain in unspecified shoulder; J61 Pneumoconiosis due to asbestos and other mineral fibers; E66.9 Obesity, unspecified; F17.210 Nicotine dependence, cigarettes, uncomplicated; Z68.28 Body mass index [BMI] 28.0-28.9, adult; Z99.81 Dependence on supplemental oxygen; Z91.81 History of falling; Z79.899 Other long term (current) drug therapy

== ENCOUNTER 2018-05-29 11:06 | Inpatient (IN) | payer OTHER ==
[~2018-05-29] VITALS: Ht 188 cm; Wt 85.7 kg
[2018-05-29] VITALS (10 sets, daily range): BP systolic 83–132; BP diastolic 53–81
[~2018-05-29 11:06] MED LIST changes: +NAPROSYN500 MG PO; +XANAX 0.5 MG0.5 MG PO
[2018-05-29 11:20] LABS: BE 4.2 mmol/L (-2 to +3); PCO2 59.8 mmHg (35.0-45.0); PO2 109.9 mmHg (75.0-100.0); pH 7.333 (7.340-7.450)
[2018-05-29 11:35] LABS: HEMATOCRIT 25.6 % (42.0-52.0); HEMOGLOBIN 8.5 gm/dL (14.0-18.0); MCHC 33.2 g/dL (28.0-37.0); MCV 75.5 fL (80.0-100.0); MPV 8.1 fl. (7.2-11.1); NUCLEATED RBCS 0 /100WBC; PLATELET COUNT* 90 thou/uL (150-400); RBC 3.39 mil/uL (4.50-6.00); RDW-CV 26.5 % (10.5-14.5); WBC 9.8 thou/uL (4.0-11.0)
[2018-05-29 11:41] LABS: ANION GAP 0 mmol/L (7-16); BUN 19 mg/dL (7-18); CHLORIDE 94 mmol/L (98-107); CO2 31 mmol/L (21-32); CREATININE 0.9 mg/dL (0.6-1.3); GLUCOSE 89 mg/dL (70-99); SODIUM 125 mmol/L (136-145)
[2018-05-29 11:46] LABS: ACETAMINOPHEN 5 ug/mL (10-30)
[2018-05-29 11:47] LABS: ALCOHOL < 10 mg/dL (<10); SALICYLATE < 2.8 mg/dL (2.8-20.0)
[2018-05-29 11:54] LABS: ALBUMIN 2.1 g/dL (3.4-5.0); ALKALINE PHOSPHATASE 41 U/L (46-116); LIPASE 92 U/L (73-393); NT-PRO BRAIN NAT PEPTIDE 397 pg/mL (<300); SGOT 28 U/L (15-37); SGPT 25 U/L (30-65); TOTAL BILIRUBIN 0.7 mg/dL (<0.1-1.0); TOTAL PROTEIN 4.4 g/dL (6.4-8.2); TROPONIN-I LEVEL <0.06 ng/mL (<0.06)
[2018-05-29 12:01] LABS: ABSOLUTE LYMPHOCYTES 0.5 thou/uL (0.8-5.3); ABSOLUTE MONOCYTES 0.4 thou/uL (0.0-1.2); ABSOLUTE NEUTROPHILS 8.9 thou/uL (1.6-8.1)
[2018-05-29 12:02] LABS: ANISOCYTOSIS 3+; HYPOCHROMASIA 1+; PLATELET ESTIMATE DECREASED
[2018-05-29 12:03] LABS: MICROCYTES 2+; OVALOCYTES 2+
[2018-05-29 12:20] LABS: URINE BILIRUBIN NEGATIVE (Negative); URINE BLOOD 1+ (Negative); URINE CLARITY CLEAR; URINE COLOR YELLOW; URINE GLUCOSE-RANDOM NEGATIVE (Negative); URINE KETONES NEGATIVE (Negative); URINE LEUKOCYTES-REFLEX NEGATIVE (Negative); URINE NITRITE-REFLEX NEGATIVE (Negative); URINE PROTEIN NEGATIVE (Negative); URINE SPECIFIC GRAVITY <= 1.005 (1.005-1.030); URINE UROBILINOGEN 0.2 E.U./dl (0.2-1.0)
[2018-05-29 12:24] LABS: AMP/METHAMP Negative (Negative); BARBITURATES Negative (Negative); BENZODIAZEPINES POSITIVE (Negative); COCAINE Negative (Negative); METHADONE Negative (Negative); OPIATES POSITIVE (Negative); PCP Negative (Negative); THC Negative (Negative)
[2018-05-29 12:32] LABS: BACTERIA-REFLEX 1-9 Few /HPF (None Seen); CASTS None Seen /LPF (None Seen); CRYSTALS None Seen /LPF (None Seen); MUCUS 0-3 Light strn/LPF (None Seen); SQUAMOUS 0-3 Few /LPF (0-3); URINE RBC 3-10 Few /HPF (0-2); URINE WBC-REFLEX 0-5 Rare /HPF (0-5)
[2018-05-29 13:20] LABS: CREATININE 0.8 mg/dL (0.6-1.3); MAGNESIUM 2.1 mg/dL (1.8-2.4); POTASSIUM 3.8 mmol/L (3.5-5.1)
--- NOTE | 2018-05-29 15:12 | EKG ---
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: [place] : 1950 Requested By: Stefan Torres Order Number: [id number] MD: Chavo Dupree Measurements Intervals [place] Rate: 82 P: -42 DE: 231 QRS: -57 QRSD: 176 T: 34 QT: 459 QTc: 536 Interpretive Statements Sinus rhythm Prolonged DE interval RBBB and LAFB Baseline wander in lead(s) V1 Compared to ECG 05/26/2018 09:29:30 First degree AV block now present Left anterior fascicular block now present Atrial fibrillation no longer present Atrial flutter no longer present ST (T wave) deviation no longer present Electronically Signed On 05-29-2018 15:12:09 CDT by Chavo Dupree [email or web address] <ELECTRONICALLY SIGNED> By: Chavo Dupree MD, [facility] 05/29/18 1512 1124 1124 Chavo Dupree MD, [facility] /EPI
[2018-05-29 15:37] LABS: BE 4.3 mmol/L (-2 to +3); HCO3 28.8 mmol/L (22.0-26.0); pH 7.444 (7.340-7.450)
[2018-05-30] VITALS (11 sets, daily range): BP systolic 96–130; BP diastolic 59–86
[2018-05-30 08:07] LABS: BE 1.3 mmol/L (-2 to +3); HCO3 25.3 mmol/L (22.0-26.0); pH 7.442 (7.340-7.450)
[2018-05-30 08:08] LABS: PO2 196.8 mmHg (75.0-100.0)
[2018-05-30 09:27] LABS: ALBUMIN 2.3 g/dL (3.4-5.0); CALCIUM 7.2 mg/dL (8.5-10.1); CREATININE 0.9 mg/dL (0.6-1.3); MAGNESIUM 2.3 mg/dL (1.8-2.4); PHOSPHORUS* 3.2 mg/dL (2.5-4.9); POTASSIUM 4.4 mmol/L (3.5-5.1); TOTAL BILIRUBIN 0.9 mg/dL (<0.1-1.0); TOTAL PROTEIN 4.5 g/dL (6.4-8.2)
[2018-05-30 09:29] LABS: ABSOLUTE BASOPHILS 0.1 thou/uL (0.0-0.2); ABSOLUTE LYMPHOCYTES 0.1 thou/uL (0.8-5.3); ABSOLUTE MONOCYTES 0.5 thou/uL (0.0-1.2); ABSOLUTE NEUTROPHILS 10.6 thou/uL (1.6-8.1); BASOPHILS 0.5 %; HEMATOCRIT 29.8 % (42.0-52.0); HEMOGLOBIN 9.9 gm/dL (14.0-18.0); MCH 25.1 pg (26.0-34.0); MCHC 33.2 g/dL (28.0-37.0); MCV 75.6 fL (80.0-100.0); MONOCYTES 4.5 %; MPV 7.8 fl. (7.2-11.1); NUCLEATED RBCS 0 /100WBC; PLATELET COUNT* 92 thou/uL (150-400); RBC 3.94 mil/uL (4.50-6.00); RDW-CV 26.2 % (10.5-14.5); WBC 11.3 thou/uL (4.0-11.0)
--- NOTE | 2018-05-30 14:16 | CON ---
[address] [address] CONSULTATION Name: PAULINO CONTRERAS Room: [address] IN .R.#: [id number] Admission: 05/29/18 Attend Phys: Garry España MD Discharge: Date of : 54 Report #: [id number] THIS REPORT FOR: //name// CC: Garry Ray DATE OF SERVICE: 05/29/2018 REQUESTING PHYSICIAN: Dr. España. INDICATION FOR CONSULTATION: [id number] hypoxemic/hypercarbic respiratory failure/ventilator management. HISTORY OF PRESENT ILLNESS: This is a 67-year-old gentleman. We had recently seen him in this hospital just a couple of weeks ago. The patient has had 2 recent admissions. The patient does have a history of oxygen-dependent COPD. The patient has also had pleural plaques/pleural masses on his right lung. Previous biopsies have not shown any evidence of malignancy. The patient when evaluated on his previous admission was noted to have a history of very high fluid intake. The patient was noted to be drinking gallons of water daily. The patient had reported alcohol intake as well; however, I was unable to define as to whether this was occasional or heavy. The patient, however, did not have any symptoms of withdrawal during previous admissions. He did, however, have a low sodium level. When I evaluated him at bedside, it also appeared to me that he was aspirating and I had offered him swallow evaluations, but the patient had declined. Apparently, the patient was admitted once more to this hospital, subsequent to the admission, I had seen him in. He at this time had right lower quadrant abdominal pain in addition to dizziness as well as generalized malaise and cough. The patient again was subsequently discharged after improvement. Today, the patient is admitted after being found unresponsive at home. He was reported to have had agonal breathing. Upon initial evaluation by the EMS, the patient did require sedation as well as paralysis for endotracheal intubation. There was a bottle of doxepin, which was empty, which was found next to him and it was suspected that the patient may have just ingested significant amounts of doxepin. At this time, the patient is responding only to painful stimuli, in fact there is a minimal response to maximal painful stimuli. He otherwise is unresponsive. The patient does appear to be bronchospastic on exam; however, he is oxygenating and ventilating adequately. It is noted also that he does have some distention of his abdomen. The patient is unable to provide a further history [place] [address] CONSULTATION Name: PAULINO CONTRERAS Room: [address] IN [facility].#: [id number] Admission: 05/29/18 Attend Phys: Garry España MD Discharge: Date of : 54 Report #: [id number] PAST MEDICAL HISTORY: Chronic respiratory failure, on oxygen at home long-term. Obstructive sleep apnea, he has a CPAP at home; however, he has been noncompliant with it. Pleural nodules/pleural plaques/masses, previous biopsy was negative for a malignancy. He does have chronic infiltrates/scarring at the right lung base. The patient has had open thoracotomy in the past, hyponatremia secondary to excessive fluid intake, back surgeries, longstanding back pain requiring narcotics, shoulder surgery, enlarged prostate. The last available echocardiogram shows a left ventricular ejection fraction of 65-70% with trace mitral regurgitation and tricuspid valve reported to be unremarkable. Clinical history consistent with chronic aspiration. The patient declined swallow studies in the past. SOCIAL HISTORY: Extensive history of smoking, unable to quantify exactly at this time. The patient is reported to have had recently switched over to e-cigarettes. The patient reported daily alcohol intake during previous admissions. I was unable to quantify if this was excessive or not. As noted above, the patient has had hyponatremia; however, did not have any other signs of alcohol withdrawal during previous admissions. The patient has been on prescribed narcotics as well as benzodiazepines at home. The patient does not have a history of working at a [employer] mill or in a ship. 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 ALLERGIES: No known drug allergies. CURRENT MEDICATIONS: List in [place] reviewed. HOME MEDICATIONS: List in [place] reviewed. ANTIBIOTICS: Antibiotics he has received on previous admissions also in [place] reviewed. FAMILY HISTORY: There is no pertinent family history. PHYSICAL EXAMINATION: GENERAL: The patient is responding only to maximal painful stimuli and there is a minimal response. VITAL SIGNS: He has a pulse of 83 and a blood pressure of 123/73. He is saturating 100%. He is on 60% FiO2 with a tidal volume of 550, AC rate is 14 and PEEP is 5. He was not overbreathing on the ventilator at the time of my examination. He is afebrile with a temperature of 36.2. HEENT: Head is normocephalic and atraumatic. Pupils are mid position and poorly reactive. There is an endotracheal tube in place. NECK: Does not show raised JVP, asymmetry, mass or lymph nodes. CHEST: Shows symmetrical expansion on inspection and palpation. On auscultation; however, breath sounds are decreased at the right lung base. There are occasional scattered expiratory wheezes, more on the left side noted. [address] [address] CONSULTATION Name: PAULINO CONTRERAS Room: [address] IN [facility].#: [id number] Admission: 05/29/18 Attend Phys: Garry España MD Discharge: Date of : 54 Report #: [id number] HEART: Irregular. There is no murmur. ABDOMEN: Mildly distended, nontender. EXTREMITIES: Lower extremities show trace to 1+ edema, more on the left side than the right. There is no calf tenderness. SKIN: However, is dry and intact. NEUROLOGIC: There is minimal response to max painful stimuli. The patient's chest x-ray is reviewed. I reviewed both the films as well as report. Endotracheal tube is in good position. There is scarring as well as infiltrate noted at the right lung base, looks slightly worse. This, however, could be secondary to change in technique as well compared with the previous chest x-rays. The patient's abdomen does show markedly distended loops of bowel. There is a large amount of stool present as well as abdomen is distended even on the x-ray. The patient's CT head did not show any evidence of a bleed. Arterial blood gas consistent with acute hypoxemic and hypercarbic respiratory failure in [facility] reviewed. His CBC as well as chemistries are also in [facility] reviewed. Note that the patient's platelet count is decreasing recently to reach 90. ASSESSMENT AND PLAN: 1. Acute on chronic hypoxemic and hypercarbic respiratory failure. We will continue current ventilator settings. For now, we will do an arterial blood gas and then reassess the ventilator. Considering a suspicion of tricyclic overdosage, I recommended not using propofol. For now, we will proceed with p.r.n. fentanyl as well as Versed. He could be given more benzodiazepines as well as narcotics if indicated. Unless there is evidence of seizure activity considering his history of narcotic use, perhaps I will be more inclined to start fentanyl infusion before considering a Versed infusion in case more sedation is needed. Also, the patient may benefit from more secured IV access in the form of a PICC line. 2. Unresponsiveness/possible tricyclic overdosage. Recommend following EKGs closely and avoiding agents that prolong QT interval. Note that the patient is suspected having had an episode of atrial fibrillation during the previous hospitalization. Otherwise, he previously was noted to be in a sinus rhythm. 3. Chronic obstructive pulmonary disease exacerbation. He does appear to be bronchospastic on exam. I agree with DuoNebs as well as Solu-Medrol as currently prescribed. 4. Pulmonary infiltrates/pleural masses/pleural plaques. The previous CT-guided biopsy was negative. There is no definite evidence of a malignancy; however, it has not been ruled out. Again, infiltrative changes are noted at the right lung base versus change in technique. We will follow chest x-rays. I switched him over to Zosyn as I want to avoid fluoroquinolones if he has a tricyclic overdosage. We will do cultures. Down the line, if further investigation is desired, then an outpatient PET scan after recovery from current illness can be considered as malignancy is not ruled out; however, it may be of limited value in this patient with limited compliance. [address] [address] CONSULTATION Name: PAULINO CONTRERAS Room: [address] IN M.R.#: [id number] Admission: 05/29/18 Attend Phys: Garry España MD Discharge: Date of : 54 Report #: [id number] 5. Excessive fluid intake/hyponatremia. The patient has had excessive fluid intake in the past. Note, however, that his current BUN in fact is elevated. Therefore, while he has peripheral edema, he appears to be intravascularly depleted and therefore, I in fact agree with giving him normal saline as long as he is ventilating and oxygenating adequately. 6. Chronic aspiration. I suspect this based on clinical examinations previously. The patient had previously refused swallow evaluations. 7. Obstructive sleep apnea. The patient is noncompliant with CPAP therapy. 8. Thrombocytopenia. Note progressively decreasing platelet count from 169 on 05/23 to 90 today. If the platelet count continues to drop, then suggest considering reconsulting Hematology/Oncology. They have seen him during prior admissions and/or considering obtaining HIT antibodies. 9. Asymmetrical edema. I will also do venous Dopplers. The patient is critically ill at this time. Total time spent providing critical care to this patient today is 46 minutes. <ELECTRONICALLY SIGNED> By: Matthias Snowden MD 05/30/18 1416 1424 Roe Snowden MD /mona
--- NOTE | 2018-05-30 14:52 | EKG ---
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 05/30/18 1452 4 08 Hill Figueroa MD, [facility] /EPI
[2018-05-31] VITALS (11 sets, daily range): BP systolic 110–148; BP diastolic 61–99
[2018-05-31 03:39] LABS: ABSOLUTE LYMPHOCYTES 0.2 thou/uL (0.8-5.3); ABSOLUTE MONOCYTES 0.4 thou/uL (0.0-1.2); ABSOLUTE NEUTROPHILS 9.5 thou/uL (1.6-8.1); BASOPHILS 0.4 %; HEMOGLOBIN 8.4 gm/dL (14.0-18.0); LYMPHOCYTES 1.7 %; MCH 25.4 pg (26.0-34.0); MCHC 33.5 g/dL (28.0-37.0); MCV 75.6 fL (80.0-100.0); MONOCYTES 4.4 %; NUCLEATED RBCS 0 /100WBC; PLATELET COUNT* 77 thou/uL (150-400); POLYS 93.5 %; RBC 3.31 mil/uL (4.50-6.00); RDW-CV 26.6 % (10.5-14.5); WBC 10.1 thou/uL (4.0-11.0)
[2018-05-31 04:04] LABS: CALCIUM 7.5 mg/dL (8.5-10.1); CREATININE 0.9 mg/dL (0.6-1.3); MAGNESIUM 2.4 mg/dL (1.8-2.4); POTASSIUM 4.1 mmol/L (3.5-5.1); TOTAL BILIRUBIN 0.8 mg/dL (<0.1-1.0); TOTAL PROTEIN 4.5 g/dL (6.4-8.2)
--- NOTE | 2018-05-31 17:55 | EKG ---
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[facility] : 1950 Requested By: Garry España Order Number: [id number] Pedro MD: Hill Figueroa Measurements Intervals [place] Rate: 119 P: RI: QRS: -88 QRSD: 151 T: 58 QT: 424 QTc: 597 Interpretive Statements Sinus rhythm Right bundle branch block Compared to ECG 05/30/2018 08:05:52 No significant changes noted Electronically Signed On 05-31-2018 17:55:40 CDT by Hill Figueroa [email or web address] <ELECTRONICALLY SIGNED> By: Hill Figueroa MD, [facility] 05/31/18 175 180 04 Hill iFgueroa MD, [facility] /EPI
--- NOTE | 2018-05-31 17:58 | EKG ---
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: : 1950 Requested By: Garry España Order Number: [id number] Pedro MD: Hill Figueroa Measurements Intervals [place] Rate: 110 P: 84 FL: 150 QRS: -66 QRSD: 158 T: 25 QT: 368 QTc: 498 Interpretive Statements Sinus tachycardia Right bundle branch block Consider inferior infarct Compared to ECG 05/30/2018 08:05:52 Myocardial infarct finding now present Sinus rhythm no longer present Electronically Signed On 05-31-2018 17:58:20 CDT by Hill Figueroa [email or web address] <ELECTRONICALLY SIGNED> By: Hill Figueroa MD, [facility] 05/31/18 1758 6 6 Hill Figueroa MD, [facility] /EPI
[2018-06-01] VITALS: BP 134/94
[2018-06-01 04:00] VITALS: BP 170/96
[2018-06-01 04:40] LABS: ABSOLUTE LYMPHOCYTES 0.2 thou/uL (0.8-5.3); ABSOLUTE MONOCYTES 0.4 thou/uL (0.0-1.2); ABSOLUTE NEUTROPHILS 7.7 thou/uL (1.6-8.1); BASOPHILS 0.2 %; LYMPHOCYTES 1.9 %; MCH 25.6 pg (26.0-34.0); MCHC 33.3 g/dL (28.0-37.0); MCV 76.8 fL (80.0-100.0); MONOCYTES 5.1 %; MPV 8.6 fl. (7.2-11.1); NUCLEATED RBCS 0 /100WBC; PLATELET COUNT* 68 thou/uL (150-400); POLYS 92.8 %; RBC 3.13 mil/uL (4.50-6.00); RDW-CV 27.5 % (10.5-14.5); WBC 8.3 thou/uL (4.0-11.0)
[2018-06-01 04:56] LABS: ALBUMIN 2.1 g/dL (3.4-5.0); CALCIUM 7.7 mg/dL (8.5-10.1); CREATININE 0.8 mg/dL (0.6-1.3); MAGNESIUM 2.5 mg/dL (1.8-2.4); PHOSPHORUS* 2.8 mg/dL (2.5-4.9); POTASSIUM 4.3 mmol/L (3.5-5.1); TOTAL BILIRUBIN 0.9 mg/dL (<0.1-1.0); TOTAL PROTEIN 4.6 g/dL (6.4-8.2)
[2018-06-01 11:00] VITALS: BP 171/87
--- NOTE | 2018-06-01 12:34 | EEG ---
[address] [address] EEG STUDY REPORT Name: PAULINO CONTRERAS Room: [address] IN .#: [id number] Admission: 05/29/18 Attend Phys: Garry España MD Discharge: Date of : 54 Report #: [id number] THIS REPORT FOR: //name// CC: Garry Ray DATE OF SERVICE: 05/31/2018 This patient has shakiness of the whole body. EEG is being done to evaluate the possibility of seizure disorder. EEG was done by placing the electrodes by 10-20 system of electrode placement. Both referential and sequential montages were used for recording. Background activity in this patient's EEG is about 7 Hz and 30 microvolt. Photic stimulation was unremarkable. No active seizure activity was noticed during this record. IMPRESSION: This patient's electroencephalogram is intermixed with theta range slowing on both sides. That is a nonspecific abnormality, which can occur with encephalopathy, effect of psychotropic medication, dementia, etc. Clinical correlation is recommended. <ELECTRONICALLY SIGNED> By: Sami Talavera MD 06/01/18 1234 1630 1713Palejandro Talavera MD /nt
--- NOTE | 2018-06-01 12:34 | CON ---
[address] [address] CONSULTATION Name: PAULINO CONTRERAS Room: [address] IN .R.#: [id number] Admission: 05/29/18 Attend Phys: Garry España MD Discharge: Date of : 54 Report #: [id number] THIS REPORT FOR: //name// CC: Garry Ray DATE OF SERVICE: 05/31/2018 HISTORY OF PRESENT ILLNESS: This is a 67-year-old male patient who was evaluated by me for seizure-like activity. This patient was admitted with doxepin overdose. He was noticed to have jerking movement last night. Jerking was pretty persistent and was not responsive to benzodiazepines. I reviewed all the patient's records and it looks like this patient also had some agonal breathing when he was admitted. That may indicate that the patient may have developed some hypoxia at that time. REVIEW OF SYSTEMS: Indicate a history of atrial fibrillations and a prolonged QT. This patient has aspiration pneumonitis. He has a history of hypertension. On reviewing the records, it looks like he has multiple other systemic problem. His 14-point review of system was carried out from the records. This is because the patient is unable to provide any history and none of the family member is available. In the Emergency Room, his son was here and he gave a history that previously, this patient has left against medical advice and he had a suicidal ideation. The patient has a history of home oxygen COPD, hypertension, asthma, enlarged prostate, kidney tumor. One of the records indicate back surgeries and lung cancer. That was his relevant 14-point review of system. PAST MEDICAL HISTORY: Negative for seizure. FAMILY HISTORY: Unavailable. SOCIAL HISTORY: Apparently, son is involved with the patient's care. We will try to reach the patient's son. PHYSICAL EXAMINATION: Indicates the patient is sleepy, but he wakes up. When he is awakened, he sometimes followed commands. He does not open his eyes and he does not say anything. Cranial nerve examination 2-12 was attempted, but is difficult to carry out because of the patient's condition. He moves both upper extremities. It is difficult to tell about the lower extremities. He is extubated now. He has a history of chronic atrial fibrillation. He is thinly-built individual. He does not have any dysmorphic features of eyes, ears and face. Pulse is 103, respiration is 20, blood pressure is 139/78. LABORATORY DATA: Indicate hemoglobin of 8.4. He did have a CT scan of the head at one time, which 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 He is doing reasonably well at the moment. According to nurses, he responded to Keppra, but we will hold any further Keppra because history does not look very typical for seizures. I discussed the patient with Dr. España and the nurses last night extensively and I will try to talk to the patient's son when he is available. Thank you very much for this referral. <ELECTRONICALLY SIGNED> By: Sami Talavera MD 06/01/18 1234 1009 1926Sami Talavera MD /nt
[2018-06-01 18:24] LABS: HEMATOCRIT 23.4 % (42.0-52.0); HEMOGLOBIN 7.6 gm/dL (14.0-18.0); MCH 24.9 pg (26.0-34.0); MCHC 32.5 g/dL (28.0-37.0); MCV 76.8 fL (80.0-100.0); MPV 9.1 fl. (7.2-11.1); NUCLEATED RBCS 0 /100WBC; PLATELET COUNT* 52 thou/uL (150-400); RBC 3.05 mil/uL (4.50-6.00); RDW-CV 27.5 % (10.5-14.5); WBC 7.6 thou/uL (4.0-11.0)
[2018-06-01 19:19] LABS: ABSOLUTE LYMPHOCYTES 0.6 thou/uL (0.8-5.3); ABSOLUTE MONOCYTES 0.2 thou/uL (0.0-1.2); ABSOLUTE NEUTROPHILS 6.8 thou/uL (1.6-8.1); OVALOCYTES 1+; PLATELET ESTIMATE DECREASED
[2018-06-01 19:20] LABS: ANISOCYTOSIS 3+; MICROCYTES 1+
[2018-06-01 20:30] VITALS: BP 170/79
[2018-06-02 00:26] VITALS: BP 153/57
[2018-06-02 04:00] VITALS: BP 150/74
[2018-06-02 04:52] LABS: HEMATOCRIT 24.8 % (42.0-52.0); HEMOGLOBIN 8.1 gm/dL (14.0-18.0); MCH 25.4 pg (26.0-34.0); MCHC 32.7 g/dL (28.0-37.0); MCV 77.7 fL (80.0-100.0); MPV 8.7 fl. (7.2-11.1); RBC 3.2 mil/uL (4.50-6.00); RDW-CV 27.1 % (10.5-14.5); WBC 7.3 thou/uL (4.0-11.0)
[2018-06-02 05:06] LABS: CALCIUM 7.5 mg/dL (8.5-10.1); CREATININE 0.7 mg/dL (0.6-1.3); MAGNESIUM 2.4 mg/dL (1.8-2.4); TOTAL BILIRUBIN 0.9 mg/dL (<0.1-1.0); TOTAL PROTEIN 4.4 g/dL (6.4-8.2)
[2018-06-02 08:10] VITALS: BP 138/76
--- NOTE | 2018-06-02 08:34 | CON ---
[address] [address] CONSULTATION Name: PAULINO CONTRERAS Room: [address] IN .R.#: [id number] Admission: 05/29/18 Attend Phys: Garry España MD Discharge: Date of : 54 Report #: [id number] THIS REPORT FOR: //name// CC: Garry Ray DATE OF SERVICE: 06/01/2018 REASON FOR CONSULTATION: Thrombocytopenia. HISTORY OF PRESENT ILLNESS: The patient is a 67-year-old male who has been previously seen last month, was intubated and found unresponsive at home. He recently left the hospital AMA after COPD treatment. The patient was found to have an empty bottle of doxepin near him, with expectations of suicidal attempt. He was extubated and at this point, he is not very responsive to verbal commands. The patient's, since admission, platelet counts were around 90,000. However, on his previous admission, on 05/25/2018 and 05/26/2018, his platelet counts were like 130,000 to 118,000 and probably, he had heparin exposure. The patient was started on Keppra. In addition to that, his medications include Zosyn. I was not able to obtain any further information from the patient. A CT scan of the chest showed unchanged heart and vessel, with coronary artery calcifications. There was unchanged bilateral posterior loculated fluid. There were also atelectasis and infiltrates. REVIEW OF SYSTEMS: All systems were reviewed. It was negative, except the above. PAST MEDICAL HISTORY: Per his records, COPD; heart failure; hypokalemia; sleep apnea; chronic respiratory failure, on home oxygen; pleural nodules, masses present on the biopsy to be negative for cancer, hyponatremia and PBH. MEDICATIONS: Per admission list. ALLERGIES: No known allergies. SOCIAL HISTORY: He had extensive smoking in addition to daily alcohol intake on his previous admissions. FAMILY HISTORY: Noncontributory. PHYSICAL EXAMINATION: VITAL SIGNS: Today, temperature 37.9, pulse is 115, respirations 20 and blood pressure is 158/86. GENERAL: The patient was lying in bed. CHEST: Showed symmetric expansion. Breathing sounds were mildly decreased. HEART: Regular. S1, S2 [place] [address] CONSULTATION Name: PAULINO CONTRERAS Room: [address]#: [id number] Admission: 05/29/18 Attend Phys: Garry España MD Discharge: Date of : 54 Report #: [id number] NEUROLOGIC: He is not responsive to verbal commands. LABORATORY DATA: WBC 8.3, hemoglobin is 8.0, MCV is 76.8 and platelets 68,000, dropped from the admission to 90,0000. Previously, it was 130,000 on 05/25/2018. Creatinine is 0.8. Venous Doppler showed negative for DVT. ASSESSMENT AND PLAN: A 67-year-old male who was evaluated because of progressive thrombocytopenia during this admission and most likely an overdose with doxepin. His platelet count has been dropping since admission, with a previous exposure to heparin. I agree with checking heparin-induced thrombocytopenia antibodies. However, other causes could be explaining his thrombocytopenia will be drug related like Zosyn. I would like to obtain peripheral blood smear. We will obtain hemolysis parameters including LDH, haptoglobin and DIC profile. We will follow the patient during hospitalization. At this point, no active bleeding has been reported. We will continue to follow his clinical course. <ELECTRONICALLY SIGNED> By: Josue Bright MD 06/02/18 0834 [id number] 0206Josue Bright MD /nt
[2018-06-02 09:04] LABS: CHOLESTEROL 110 mg/dL (<200); HDL CHOLESTEROL 42 mg/dL (>40); LDL CHOLESTEROL 49 mg/dL (<100); TC:HDL 2.6 Ratio (Not establshd); TRIGLYCERIDE 98 mg/dL (<150); VLDL 20 mg/dL (<40)
[2018-06-02 09:07] LABS: SERUM ASSESSMENT Clear
[2018-06-02 12:25] VITALS: BP 125/81
[2018-06-02 16:27] VITALS: BP 111/81
[2018-06-02 19:45] VITALS: BP 121/56
[2018-06-03] VITALS: BP 133/72
[2018-06-03 04:00] VITALS: BP 150/75
[2018-06-03 04:35] LABS: HEMATOCRIT 25.7 % (42.0-52.0); HEMOGLOBIN 8.4 gm/dL (14.0-18.0); MCH 25.4 pg (26.0-34.0); MCHC 32.8 g/dL (28.0-37.0); MCV 77.4 fL (80.0-100.0); MPV 9.8 fl. (7.2-11.1); RBC 3.32 mil/uL (4.50-6.00); RDW-CV 26.4 % (10.5-14.5); WBC 7.7 thou/uL (4.0-11.0)
[2018-06-03 04:53] LABS: ALBUMIN 2.1 g/dL (3.4-5.0); CALCIUM 7.5 mg/dL (8.5-10.1); CREATININE 0.7 mg/dL (0.6-1.3); MAGNESIUM 2.2 mg/dL (1.8-2.4); PHOSPHORUS* 2.5 mg/dL (2.5-4.9); TOTAL BILIRUBIN 0.9 mg/dL (<0.1-1.0); TOTAL PROTEIN 4.5 g/dL (6.4-8.2)
[2018-06-03 08:00] VITALS: BP 152/78
[2018-06-03 12:00] VITALS: BP 145/77
--- NOTE | 2018-06-03 13:10 | CON ---
[address] [address] CONSULTATION Name: PAULINO CONTRERAS Room: [address] IN .R.#: [id number] Admission: 05/29/18 Attend Phys: Garry España MD Discharge: Date of : 54 Report #: [id number] THIS REPORT FOR: //name// CC: Garry Ray INDICATION: Atrial flutter. HISTORY OF PRESENT ILLNESS: The patient is a 67-year-old gentleman who was hospitalized 2 days ago after being found unresponsive at home. He apparently had been in the hospital prior to this admission for COPD treatment. He left the hospital AMA. He has a history of lung cancer and severe COPD with noncompliance. The patient was noted to have an empty pill bottle at home. The patient apparently took an overdose of doxepin. The patient has a history of chronic pain and opioid dependence. Presently telemetry exhibits a tachycardic rhythm with a right bundle-branch block. Per my review, it appears to be sinus tachycardia. The patient apparently has had history of some atrial arrhythmias in the past, consistent with multifocal atrial tachycardia and possibly atrial fibrillation. He is not a candidate for chronic anticoagulation. At the time of my interview, he remains moderately confused. No meaningful history was obtained. PAST MEDICAL HISTORY: 1. COPD. 2. Atrial arrhythmias, likely multifocal atrial tachycardia. 3. Chronic back pain. 4. Chronic opioid use. 5. Chronic alcohol abuse. 6. Hypertension. HOME MEDICATIONS: Alprazolam, prednisone, albuterol, Protonix, Flomax, losartan, amlodipine, albuterol, Atrovent and levofloxacin. SOCIAL HISTORY: The patient apparently lives with his son. He has a 93-ljjp-kqor smoking history, but quit 1 year ago. He drinks alcohol daily. REVIEW OF SYSTEMS: Not obtainable. PHYSICAL EXAMINATION: VITAL SIGNS: Blood pressure 143/73, pulse is 108 and regular. GENERAL: This is a gentleman who is arousable, but somewhat confused. He is not combative. HEENT: Head is normocephalic, atraumatic. NECK: Without jugular venous distention. CHEST: Diminished breath sounds without wheezes or rales. CARDIAC: Regular rhythm that is tachycardic without [place] [address] CONSULTATION Name: BENPAULINO Room: [address] IN [facility]#: [id number] Admission: 05/29/18 Attend Phys: Garry España MD Discharge: Date of : 54 Report #: [id number] ABDOMEN: Reveals normal bowel sounds. The abdomen is soft, nontender. EXTREMITIES: Shows no significant edema. SKIN: Warm and dry. A 12-lead EKG shows what appears to be a sinus tachycardia with a right bundle-branch block. LABORATORY DATA: Reviewed. Sodium 138, potassium 4.1, chloride 105, bicarbonate 30, BUN 21, creatinine 0.9, serum glucose 117. LFTs essentially within normal limits. Albumin is low at 2.0. White blood cell count 10.1, hemoglobin 8.4, MCV 75.6, platelet count 77. Chest x-ray shows no acute pulmonary abnormality. IMPRESSION AND RECOMMENDATIONS: 1. Tachycardia that appears presently to be sinus tachycardia. We will give bolus IV beta el and IV fluids for rehydration. We will follow clinically at this point in time. 2. History of multifocal atrial tachycardia, presently stable. 3. Chronic obstructive pulmonary disease per primary physician. <ELECTRONICALLY SIGNED> By: Hill Figueroa MD, FACC 06/03/18 1310 1551 0112Microbby Figueroa MD, FACC /nt
[2018-06-03 16:00] VITALS: BP 147/77
[2018-06-03 20:00] VITALS: BP 145/76
[2018-06-04] VITALS (7 sets, daily range): BP systolic 114–182; BP diastolic 74–98
[2018-06-04 04:56] LABS: HEMATOCRIT 24.8 % (42.0-52.0); HEMOGLOBIN 8.2 gm/dL (14.0-18.0); MCH 25.7 pg (26.0-34.0); MCHC 33.2 g/dL (28.0-37.0); MCV 77.4 fL (80.0-100.0); RBC 3.2 mil/uL (4.50-6.00); RDW-CV 26.3 % (10.5-14.5); WBC 6.6 thou/uL (4.0-11.0)
[2018-06-04 05:03] LABS: CALCIUM 7.8 mg/dL (8.5-10.1); CREATININE 0.6 mg/dL (0.6-1.3); MAGNESIUM 2.2 mg/dL (1.8-2.4); POTASSIUM 4.1 mmol/L (3.5-5.1); TOTAL BILIRUBIN 0.8 mg/dL (<0.1-1.0); TOTAL PROTEIN 4.5 g/dL (6.4-8.2)
[2018-06-05 00:27] VITALS: BP 161/86
[2018-06-05 04:56] VITALS: BP 136/72
[2018-06-05 07:50] VITALS: BP 142/79
[2018-06-05 12:24] VITALS: BP 138/66
[2018-06-05 16:00] VITALS: BP 130/76
[2018-06-05 20:00] VITALS: BP 130/76
[2018-06-06] VITALS: BP 145/73
[2018-06-06 04:39] VITALS: BP 155/87
[2018-06-06 04:50] LABS: HEMOGLOBIN 8.9 gm/dL (14.0-18.0); MCH 25.7 pg (26.0-34.0); MCHC 32.7 g/dL (28.0-37.0); MCV 78.4 fL (80.0-100.0); MPV 9.3 fl. (7.2-11.1); NUCLEATED RBCS 0 /100WBC; PLATELET COUNT* 80 thou/uL (150-400); RBC 3.45 mil/uL (4.50-6.00); RDW-CV 26.8 % (10.5-14.5); WBC 5.9 thou/uL (4.0-11.0)
[2018-06-06 05:10] LABS: ALBUMIN 2.3 g/dL (3.4-5.0); CALCIUM 7.7 mg/dL (8.5-10.1); CREATININE 0.7 mg/dL (0.6-1.3); MAGNESIUM 2.3 mg/dL (1.8-2.4); PHOSPHORUS* 3.7 mg/dL (2.5-4.9); POTASSIUM 4.4 mmol/L (3.5-5.1); TOTAL BILIRUBIN 0.7 mg/dL (<0.1-1.0); TOTAL PROTEIN 4.7 g/dL (6.4-8.2)
[2018-06-06 05:37] LABS: ABSOLUTE LYMPHOCYTES 0.2 thou/uL (0.8-5.3); ABSOLUTE MONOCYTES 0.1 thou/uL (0.0-1.2); ABSOLUTE NEUTROPHILS 5.6 thou/uL (1.6-8.1); HYPOCHROMASIA 1+; OVALOCYTES 2+; PLATELET ESTIMATE DECREASED; POIKILOCYTOSIS 2+
[2018-06-06 05:38] LABS: ANISOCYTOSIS 1+; MICROCYTES 1+
[2018-06-06 08:20] VITALS: BP 111/57
[2018-06-06 12:09] VITALS: BP 154/84
[2018-06-06 20:00] VITALS: BP 125/67
[2018-06-07] VITALS: BP 117/63
[2018-06-07 04:00] VITALS: BP 155/78
[2018-06-07 08:20] LABS: ABSOLUTE LYMPHOCYTES 0.7 thou/uL (0.8-5.3); MCH 26.3 pg (26.0-34.0); RDW-CV 27.4 % (10.5-14.5)
[2018-06-07 08:21] VITALS: BP 126/57
[2018-06-07 08:24] LABS: ABSOLUTE BASOPHILS 0.1 thou/uL (0.0-0.2); ABSOLUTE MONOCYTES 0.5 thou/uL (0.0-1.2); ABSOLUTE NEUTROPHILS 5.5 thou/uL (1.6-8.1); BASOPHILS 0.8 %; EOSINOPHILS 0.1 %; HEMATOCRIT 27.4 % (42.0-52.0); HEMOGLOBIN 9.2 gm/dL (14.0-18.0); LYMPHOCYTES 10.7 %; MCHC 33.4 g/dL (28.0-37.0); MCV 78.7 fL (80.0-100.0); MONOCYTES 7.3 %; MPV 9.3 fl. (7.2-11.1); NUCLEATED RBCS 0 /100WBC; PLATELET COUNT* 109 thou/uL (150-400); POLYS 81.1 %; RBC 3.48 mil/uL (4.50-6.00); WBC 6.8 thou/uL (4.0-11.0)
[2018-06-07 17:13] VITALS: BP 128/84
[2018-06-07 20:00] VITALS: BP 113/74
[2018-06-08] VITALS: BP 136/62
[2018-06-08 04:00] VITALS: BP 154/77
[2018-06-08 07:55] VITALS: BP 150/76
[2018-06-08 12:00] VITALS: BP 135/68
[2018-06-08 16:00] VITALS: BP 122/61
[2018-06-08 20:30] VITALS: BP 110/68
[2018-06-09] VITALS: BP 118/58
[2018-06-09 04:00] VITALS: BP 142/58
[2018-06-09 08:00] VITALS: BP 134/70
[2018-06-09 12:21] VITALS: BP 110/55
[2018-06-09 16:00] VITALS: BP 108/62
[2018-06-09 20:00] VITALS: BP 106/64
[2018-06-10 00:35] VITALS: BP 129/60
[2018-06-10 04:30] VITALS: BP 117/59
[2018-06-10 04:49] LABS: ABSOLUTE LYMPHOCYTES 0.4 thou/uL (0.8-5.3); ABSOLUTE MONOCYTES 0.4 thou/uL (0.0-1.2); ABSOLUTE NEUTROPHILS 5.3 thou/uL (1.6-8.1); BASOPHILS 0.3 %; EOSINOPHILS 0.3 %; HEMATOCRIT 26.5 % (42.0-52.0); HEMOGLOBIN 8.7 gm/dL (14.0-18.0); LYMPHOCYTES 7.1 %; MCH 26.5 pg (26.0-34.0); MCV 80.3 fL (80.0-100.0); MONOCYTES 6.9 %; MPV 8.5 fl. (7.2-11.1); NUCLEATED RBCS 0 /100WBC; PLATELET COUNT* 154 thou/uL (150-400); POLYS 85.4 %; RDW-CV 27.8 % (10.5-14.5); WBC 6.2 thou/uL (4.0-11.0)
[2018-06-10 05:37] LABS: MAGNESIUM 1.7 mg/dL (1.8-2.4); POTASSIUM 3.7 mmol/L (3.5-5.1)
[2018-06-10 08:07] VITALS: BP 121/62
--- NOTE | 2018-06-10 12:49 | EKG ---
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1950 Requested By: Garry España Order Number: [id number] Reading MD: Gurinder Gray Measurements Intervals [place] Rate: 101 P: 71 NM: 168 QRS: -18 QRSD: 133 T: 18 QT: 332 QTc: 431 Interpretive Statements Sinus tachycardia Atrial premature complexes Right bundle branch block Compared to ECG 05/31/2018 08:17:11 Atrial premature complex(es) now present Myocardial infarct finding no longer present Electronically Signed On 06-10-2018 12:49:33 CDT by Gurinder Gray [email or web address] <ELECTRONICALLY SIGNED> By: Esau Gray MD, [facility] 06/10/18 1249 0500 0500 Esau Gray MD, [facility] /EPI
--- NOTE | 2018-06-10 12:50 | EKG ---
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: : 1950 Requested By: Garry España Order Number: [id number] Reading MD: Gurinder Gray Measurements Intervals [place] Rate: 169 P: 0 RI: QRS: -32 QRSD: 132 T: 6 QT: 321 QTc: 539 Interpretive Statements Wide-QRS tachycardia Right bundle branch block Baseline wander in lead(s) V6 Compared to ECG 05/31/2018 08:17:11 Sinus tachycardia no longer present Myocardial infarct finding no longer present Electronically Signed On 06-10-2018 12:49:59 CDT by Gurinder Gray [email or web address] <ELECTRONICALLY SIGNED> By: Esau Gray MD, [facility] 06/10/18 1249 0506 0506 Esau Gray MD, [facility] /EPI
[2018-06-10 13:03] VITALS: BP 113/56
[2018-06-10 17:08] VITALS: BP 99/47
[2018-06-10 20:00] VITALS: BP 101/65
[2018-06-11] VITALS: BP 127/61
[2018-06-11 04:18] VITALS: BP 138/62
[2018-06-11 05:15] LABS: CALCIUM 7.7 mg/dL (8.5-10.1); CREATININE 0.7 mg/dL (0.6-1.3); MAGNESIUM 1.8 mg/dL (1.8-2.4)
[2018-06-11 08:30] VITALS: BP 102/54
--- NOTE | 2018-06-11 09:59 | CON ---
[address] [address] CONSULTATION Name: PAULINO CONTRERAS Room: [address] IN .#: [id number] Admission: 05/29/18 Attend Phys: Garry España MD Discharge: Date of : 54 Report #: [id number] THIS REPORT FOR: //name// CC: Garry Ray DATE OF SERVICE: 06/10/2018 REASON FOR CONSULTATION: Urinary retention. HISTORY OF PRESENT ILLNESS: The patient is a 67-year-old male with multiple comorbidities, who was admitted with a potential doxepin overdose and has had multiple issues during admission. He has now failed 2 voiding trials and his catheter was replaced yesterday with 1100 mL drained. The patient denies any difficulty urinating prior to hospitalization. He does have a history of BPH and reports he was on Flomax as an outpatient, but he has never seen Urology. He denies any prior retention prior to this hospitalization. PAST MEDICAL HISTORY: Includes COPD, hypertension, asthma, BPH, history of lung cancer. PAST SURGICAL HISTORY: Includes back surgeries, thoracotomy, shoulder surgery. ALLERGIES: None. MEDICATIONS: Reviewed. Please see inpatient medical record. SOCIAL HISTORY: The patient is a long-term smoker and reported daily alcohol intake on previous admissions. FAMILY HISTORY: Noncontributory. REVIEW OF SYSTEMS: A 12-point review of systems is performed and is negative except as noted above in HPI. PHYSICAL EXAMINATION: VITAL SIGNS: Temperature is 36.6, pulse is 114, respirations 21, blood pressure 121/62, pulse ox 100%. GENERAL: He is a well-developed, well-nourished elderly appearing white male, in no acute distress. He is alert and oriented. HEENT: Normocephalic, atraumatic. RESPIRATIONS: Unlabored. HEART: Regular and tachycardic. ABDOMEN: Soft, nontender and nondistended. GENITOURINARY: He has a normal phallus and testicles. His Pina catheter is in place and is [place] [address] CONSULTATION Name: PAULINO CONTRERAS Room: [address]#: [id number] Admission: 05/29/18 Attend Phys: Garry España MD Discharge: Date of : 54 Report #: [id number] EXTREMITIES: Without cyanosis or edema. SKIN: Warm and dry. NEUROLOGIC: He is grossly intact. LABORATORY DATA: His white count is 6.2, hemoglobin 8.7, platelets 154. His last BMP was on 06/06/2018 and his creatinine was normal at 0.7. Urinalysis on admission showed microscopic hematuria, but I am uncertain if this was done after his catheter was placed or not. ASSESSMENT AND PLAN: 1. History of benign prostatic hypertrophy. 2. Urinary retention. Would definitely resume his Flomax. It does not look like he is currently on that, would limit narcotic use. He does report he has had normal bowel movements and denies any constipation. I do not see any other medications that would contribute to retention at this time. He is potentially going to be discharged to the third floor rehab on Tuesday and I would probably recommend leaving the catheter for another 5-7 days while we get his Flomax back on board and then we can attempt another voiding trial. <ELECTRONICALLY SIGNED> By: Smita Gamez MD 06/11/18 0959 1253 1310Smita Gamez MD /nt
--- NOTE | 2018-06-11 10:58 | EKG ---
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
[2018-06-11 12:00] VITALS: BP 122/57
[2018-06-11 16:00] VITALS: BP 107/59
[2018-06-11 20:00] VITALS: BP 121/56; BP 147/65
[2018-06-12] VITALS: BP 102/56
[2018-06-12 04:00] VITALS: BP 117/55
[2018-06-12 08:00] VITALS: BP 105/56
[2018-06-12 16:00] VITALS: BP 102/48
[2018-06-12 20:00] VITALS: BP 120/63
[2018-06-13 01:01] VITALS: BP 109/53
[2018-06-13 05:07] VITALS: BP 107/65
[2018-06-13 08:00] VITALS: BP 118/70
[2018-06-14 00:05] VITALS: BP 125/68
[2018-06-14 07:55] VITALS: BP 126/54
--- NOTE | 2018-06-14 10:15 | EKG ---
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1950 Requested By: Jayesh Swain Order Number: [id number] Reading MD: Jayesh Swain Measurements Intervals [place] Rate: 108 P: OR: QRS: 30 QRSD: 130 T: -3 QT: 341 QTc: 457 Interpretive Statements Atrial fibrillation Right bundle branch block Compared to ECG 06/10/2018 10:44:06 Sinus tachycardia no longer present Electronically Signed On 06-14-2018 10:15:19 CDT by Jayesh Swain [email or web address] <ELECTRONICALLY SIGNED> By: Jayesh Swain MD, [facility] 06/14/18 1015 3 3 Jayesh Swain MD, FACC /EPI
[2018-06-14] MEDS ORDERED: LEVALBUTER1.25 MG/0. INH ×2 (11:55)
[2018-06-14] MEDS ORDERED: LIDOPATCH1 EACH TOP (11:55)
[2018-06-14] MEDS ORDERED: LOPRESSOR50 PO (11:55)
[2018-06-14] MEDS ORDERED: PULMICORT0.5 MG/2 M INH (11:55)
[2018-06-14] MEDS ORDERED: HYDROCODON-ACE1 EAC7 PO (11:55)
[2018-06-14] MEDS ORDERED: XANAX 0.25 MG0.25 MG PO (11:55)
[2018-06-14] MEDS ORDERED: PREDNISONE 20 M20 MG PO (11:55)
[2018-06-14] MEDS ORDERED: FOLIC ACID1 MG PO (11:55)
[2018-06-14 12:22] VITALS: BP 126/54
== END 2018-06-14 15:11 | DRG 917 ==
LOC: M.ERS 11:06 → M.ICU 12:13 → M.TBA-ER 12:13 → M.ICU 13:00 → M.2W 05-31 16:07 → M.3W 06-13 19:52
PROVIDERS: Emergency Medicine; Family Medicine; Internal Medicine; Internal Medicine Cardiovascular Disease; Internal Medicine Critical Care Medicine; ADMIT Internal Medicine
DX: T43.012A Poisoning by tricyclic antidepressants, intentional self-harm, initial encounter (principal); G92 Toxic encephalopathy; J69.0 Pneumonitis due to inhalation of food and vomit; J96.21 Acute and chronic respiratory failure with hypoxia; J96.22 Acute and chronic respiratory failure with hypercapnia; E87.1 Hypo-osmolality and hyponatremia; F11.20 Opioid dependence, uncomplicated; J44.1 Chronic obstructive pulmonary disease with (acute) exacerbation; E44.0 Moderate protein-calorie malnutrition; I47.2 Ventricular tachycardia; I10 Essential (primary) hypertension; G47.33 Obstructive sleep apnea (adult) (pediatric); F32.9 Major depressive disorder, single episode, unspecified; D50.9 Iron deficiency anemia, unspecified; N40.1 Benign prostatic hyperplasia with lower urinary tract symptoms; K59.00 Constipation, unspecified; I48.2 Chronic atrial fibrillation; R33.8 Other retention of urine; D69.6 Thrombocytopenia, unspecified; J61 Pneumoconiosis due to asbestos and other mineral fibers; G89.29 Other chronic pain; L98.499 Non-pressure chronic ulcer of skin of other sites with unspecified severity; F41.1 Generalized anxiety disorder; I45.81 Long QT syndrome; Z87.891 Personal history of nicotine dependence; Z68.24 Body mass index [BMI] 24.0-24.9, adult; Z99.81 Dependence on supplemental oxygen; Z85.118 Personal history of other malignant neoplasm of bronchus and lung; Z79.899 Other long term (current) drug therapy; Y92.89 Other specified places as the place of occurrence of the external cause

== ENCOUNTER 2018-06-15 06:05 | Inpatient (IN) | payer OTHER ==
[2018-06-15] VITALS (24 sets, daily range): BP systolic 96–136; BP diastolic 56–84
[~2018-06-15] VITALS: Ht 154.9 cm; Wt 103.4 kg
[~2018-06-15 06:05] MED LIST changes: +FOLIC ACID1 MG PO; +HYDROCODON-ACE1 EAC7 PO; +LEVALBUTER1.25 MG/0. INH; +LIDOPATCH1 EACH TOP; +LOPRESSOR50 PO; +PREDNISONE 20 M20 MG PO; +PULMICORT0.5 MG/2 M INH; +XANAX 0.25 MG0.25 MG PO
[2018-06-15 06:43] LABS: BE 1.6 mmol/L (-2 to +3); HCO3 23.9 mmol/L (22.0-26.0); PCO2 30.2 mmHg (35.0-45.0); pH 7.516 (7.340-7.450)
[2018-06-15 06:55] LABS: HEMATOCRIT 32.6 % (42.0-52.0); HEMOGLOBIN 10.3 gm/dL (14.0-18.0); MCH 25.5 pg (26.0-34.0); MCHC 31.6 g/dL (28.0-37.0); MCV 80.6 fL (80.0-100.0); MPV 8.4 fl. (7.2-11.1); NUCLEATED RBCS 0 /100WBC; PLATELET COUNT* 539 thou/uL (150-400); RBC 4.04 mil/uL (4.50-6.00); RDW-CV 27.4 % (10.5-14.5); WBC 18.8 thou/uL (4.0-11.0)
[2018-06-15 07:01] LABS: ANION GAP 9 mmol/L (7-16); BUN 34 mg/dL (7-18); CHLORIDE 96 mmol/L (98-107); CO2 29 mmol/L (21-32); CREATININE 1.2 mg/dL (0.6-1.3); GLUCOSE 112 mg/dL (70-99); POTASSIUM 4.3 mmol/L (3.5-5.1); PROTIME 10.7 Seconds (9.20-11.50); SODIUM 134 mmol/L (136-145)
[2018-06-15 07:12] LABS: ALBUMIN 1.7 g/dL (3.4-5.0); ALKALINE PHOSPHATASE 82 U/L (46-116); LIPASE 58 U/L (73-393); NT-PRO BRAIN NAT PEPTIDE 2774 pg/mL (<300); SGOT 8 U/L (15-37); SGPT 15 U/L (30-65); TOTAL BILIRUBIN 0.6 mg/dL (<0.1-1.0); TOTAL PROTEIN 6.3 g/dL (6.4-8.2); TROPONIN-I LEVEL <0.06 ng/mL (<0.06)
--- NOTE | 2018-06-15 07:15 | NUR ---
PT IS REFUSING TO LEAVE NRB MASK ON. PT REQUESTING TO BE PLACED ON HIS REGULAR 4L/NC. NOTIFIED.
[2018-06-15 07:34] LABS: ABSOLUTE LYMPHOCYTES 0.6 thou/uL (0.8-5.3); ABSOLUTE MONOCYTES 1.9 thou/uL (0.0-1.2); ABSOLUTE NEUTROPHILS 16.4 thou/uL (1.6-8.1); MYELOCYTES 1 %
[2018-06-15 07:35] LABS: PLATELET ESTIMATE INCREASED
[2018-06-15 07:36] LABS: LARGE PLATELETS RARE
[2018-06-15 07:37] LABS: ANISOCYTOSIS 1+; OVALOCYTES 1+; TOXIC GRANULATION 1+
[2018-06-15 07:38] LABS: HYPOCHROMASIA Occasional; POIKILOCYTOSIS 1+
[2018-06-15 07:39] LABS: POLYCHROMASIA Occasional; TARGET CELLS Occasional
--- NOTE | 2018-06-15 10:09 | NUR ---
HR IN 160'S. CARDIOLOGY CALLED RECEIVED ORDER FOR ONE TIME DOSE DIGOXIN. DILTIAZEM TITRATED PER PROTOCOL. PT HR IN 110 FOR ABOUT 10 SECONDS. HR WENT BACK UP TO 160'S. CARDIOLOGY CALLED. AWAITING ORDERS.
--- NOTE | 2018-06-15 11:40 | NUR ---
WOUND CARE CONSULTED. PICTURES TAKEN. PT C/O OF BEING SOA. PT REFUSES NON RE-BREATHER. WHILE C/O OF BEING SOA PT ASKING FOR CELL PHONE AND REMOTE CONTROLL AND ASKS TO WATCH THE NEWS.
--- NOTE | 2018-06-15 12:46 | NUR ---
PT ASPIRATING ON LIQUIDS. WHEN DISCUSSING ASPIRATION PT STATES "IT'S MY CHOICE" REGARDING HAVING ICE CHIPS AND WATER. DR ALLISON AND CARDIOLOGY NOTIFIED THAT PT ASPIRATING. METOPROLOL AND SOLUMEDROL CHANGED TO IV. PT REFUSING TO TAKE ORAL MEDICATION. PT REQUESTING IV MEDICATION. PT INSISTING ON HAVING ICE CHIPS. CARDIOLOGY AWARE PT DID NOT HAVE AMLODIPINE. SPOKE TO AND ALBUTEROL BREATHING TX CHANGED TO NOT INCREASE HEART RATE.
--- NOTE | 2018-06-15 13:10 | NUR ---
WOUND CARE NOTE: CONSULT RECEIVED FOR COCCYX WOUND. PATIENT WELL KNOWN TO ME FROM PREVIOUS HOSPITAL STAY. PRESENTS WITH MULTIPLE STAGE 3 ULCERATIONS TO BILATERAL BUTTOCKS AND SACROCOCCYGEAL REGION. SACROCOCCYGEAL REGION: STAGE 3 PRESSURE ULCER, MULTIPLE AREAS OF OPENINGS, BUT CLUSTERED MEASURES 9.5X4X0.3. MOIST, PALE WOUND BED. YEE-WOUND WITH NEW EPITHELIUM. SEROUS DRAINAGE. CLEANSED WITH WOUND CLEANSER THEN APPLIED Z-GUARD PASTE. RIGHT LATERAL THIGH: FULL THICKNESS ULCERATION MEASURING 4X1.4X0.1. 100% COVERED WITH YELLOW SLOUGH TISSUE, AFTER CLEANSING THIS WAS ALL REMOVED REVEALING A PALE, MOIST, PINK WOUND BED. YEE-WOUND WITH NEW EPITHELIUM. APPLIED AQUACEL AG AND SECURED WITH BORDERED FOAM. LEFT MEDIAL BUTTOCKS: STAGE 3 PRESSURE ULCER, HEALING, YEE-WOUND WITH ECCHYMOSIS. WOUND MEASURES 0.5X0.5X0.3. MOIST, PALE WOUND BED. SCANT AMOUNT OF SEROUS DRAINAGE. CLEANSED WITH WOUND CLEANSER, PATTED DRY. APPLIED AQUACEL AG AND COVERED WITH EXUDERM. SECURED WITH TEGADERM. SUPERIOR LEFT BUTTOCK: STAGE 3 PRESSURE ULCER, HEALING, YEE-WOUND WITH NEW EPITHELIUM. WOUND MEASURES 0.8X1X0.1. MOIST, RED, FRIABLE WOUND BED. YEE-WOUND WITH NEW EPITHELIUM. CLEANSED WOUND WITH WOUND CLEANSER, PATTED DRY. APPLIED AQUACEL AG AND SECURE WITH EXUDERM THEN TEGADERM. DISTAL LEFT BUTTOCK: STAGE 3 PRESSURE ULCER, HEALING, YEE-WOUND WITH NEW EPITHELIUM. WOUND MEASURES 1X1.2X0.2. MOIST, RED, YELLOW WOUND BED. CLEANSED WITH WOUND CLEANSER, PATTED DRY. APLIED AQUACEL AG AND SECURED WITH EXUDERM THEN TEGADERM. LEFT BUTTOCK/ UPPER THIGH: STAGE 3 PRESSURE ULCER, HEALING. YEE-WOUND WITH NEW EPITHELIUM. WOUND MEASURES 3.5X1.7X0.2. WOUND BED IS MOIST, YELLOW. CLEANSED WITH WOUND CLEANSER, PATTED DRY. APPLIED AQUACEL AG AND SECURED WITH EXUDERM THEN TEGADERM. RIGHT BUTTOCK: STAGE 3 PRESSURE ULCER, HEALING. YEE-WOUND WITH NEW EPITHELIUM. WOUND MEASURES 1.5X2.2X0.2. WOUND BED IS MOIST, RED. CLEANSED WITH WOUND CLEANSER, PATTED DRY. APPLIED AQUACEL AG TO WOUND BED AND SECURED WITH EXUDERM THEN TEGADERM. APPLIED LOW AIR LOSS MATTRESS FUNCTION. PATIENT WAS TURNED ON LEFT SIDE WITH PILLOWS. PATIENT STRUGGLES WITH OXYGENATION AND IS DIFFICULT FOR HIM TO TURN FOR LONG PERIODS OF TIME. PATIENT WAS EDUCATED ON THE MANUEL FUNCTION. RECOMMEND TURN Q2 HOURS MANUEL MATTRESS ENCOURAGE GOOD NUTRITION/HYDRATION FOLLOW UP IN WOUND CARE CENTER UPON DISCHARGE
--- NOTE | 2018-06-15 15:45 | EKG ---
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 Quality Assurance: : 1950 Requested By: Stefan Torres Order Number: [id number] MD: Hill Figueroa Measurements Intervals [place] Rate: 165 P: [place]: QRS: 41 QRSD: 118 T: -7 QT: 291 QTc: 482 Interpretive Statements Atrial fibrillation with rapid V-rate Right bundle branch block Compared to ECG 06/14/2018 09:24:54 No significant changes Electronically Signed On 06-15-2018 15:45:13 CDT by Hill Figueroa [email or web address] <ELECTRONICALLY SIGNED> By: Hill Figueroa MD, [facility] 06/15/18 1545 0610 0610 Hill Figueroa MD, [facility] /EPI
--- NOTE | 2018-06-15 18:27 | NUR ---
OFFERED TO HAVE PT'S CHECK BOOK PLACED IN SECURITY 3 X'S. PT REFUSED. PT'S BROTHER AT BEDSIDE AND PT GAVE BROTHER SOME OF CREDIT CARDS. SON TO TAKE CHECK BOOK WHEN COMES TO VISIT THIS EVENING (PER PT)
--- NOTE | 2018-06-15 18:33 | NUR ---
SPOKE TO PT AND TO PT'S BROTHER DANIEL ABOUT MAKING A DPOA AND AN ADVANCE DIRECTIVE. AT THIS TIME PT DOES NOT WANT TO MAKE A DPOA OR MAKE AN ADVANCE DIRECTIVE.
--- NOTE | 2018-06-15 18:57 | NUR ---
PT TAKING OUT CREDIT CARDS AND WRITING CHECKS, PT FOREGETFUL ABOUT PLACEMENT OF THESE BELONGINGS. OFFERED TO PLACE ITEMS IN SECURITY. PT REFUSED.
--- NOTE | 2018-06-15 19:00 | NUR ---
PT CONVERTED INTO SINUS RHYTHM AROUND 1615. HR CONTROLLED, HR IN 90'S. THIS AFTERNOON. PT YELLED "I CAN'T BREATHE" THIS RN WENT INTO PT'S ROOM AND PT REQUESTED BREATHING TX. OXYGEN SATURATION 93-94% ON 4L. SAT PT UP IN BED. PT REPORTED SOME IMPROVEMENT. RT CALLED AND PT GIVEN BREATHING TX.
[2018-06-16] VITALS (20 sets, daily range): BP systolic 121–145; BP diastolic 55–76
--- NOTE | 2018-06-16 05:46 | NUR ---
PT. PROGRESSING TOWARDS GOALS. REMAINS ON 3L O2. CARDIZEM GTT REMAINS AT 20MG/HR. PT. HAS BEEN ORIENTED, ABLE TO VOICE CONCERNS/NEEDS BUT SPEECH IS HARD TO COMPREHEND AT TIMES. IV IN LEFT AC INFILTRATED WHEN ATTEMPT TO FLUSH, NEW IV STARTED IN LEFT UPPER ARM WITH ZOSYN INFUSING AT THIS TIME. LI CATHETER REMAINS IN PLACE, Q2 TURNS, PT. REFUSES WEDGES. WILL CONTINUE TO MONITOR.
[2018-06-16 08:43] LABS: ABSOLUTE LYMPHOCYTES 0.5 thou/uL (0.8-5.3); ABSOLUTE MONOCYTES 0.3 thou/uL (0.0-1.2); BASOPHILS 0.1 %; HEMATOCRIT 28.6 % (42.0-52.0); HEMOGLOBIN 9.3 gm/dL (14.0-18.0); LYMPHOCYTES 3.3 %; MCHC 32.4 g/dL (28.0-37.0); MCV 80.2 fL (80.0-100.0); MONOCYTES 2.2 %; MPV 8.4 fl. (7.2-11.1); NUCLEATED RBCS 0 /100WBC; POLYS 94.4 %; RBC 3.56 mil/uL (4.50-6.00); RDW-CV 27.2 % (10.5-14.5); WBC 14.9 thou/uL (4.0-11.0)
[2018-06-16 08:44] LABS: PLATELET COUNT* 367 thou/uL (150-400)
[2018-06-16 08:56] LABS: ALBUMIN 1.5 g/dL (3.4-5.0); CALCIUM 7.6 mg/dL (8.5-10.1); CREATININE 0.9 mg/dL (0.6-1.3); POTASSIUM 4.2 mmol/L (3.5-5.1); TOTAL BILIRUBIN 0.6 mg/dL (<0.1-1.0); TOTAL PROTEIN 5.6 g/dL (6.4-8.2)
--- NOTE | 2018-06-16 11:00 | NUR ---
PT KNOWN TO CASE MGT FROM PREVIOUS ADMISSION. PT DISCHARGED 06/14 TO [facility], RETURNED 06/15. PRIOR TO THAT HOSPITAL STAY PT HAD BEEN LIVING WITH HIS SON, BUT WAS NOT ABLE TO AMBULATE. PT WAS ASPIRATING DURING PREVIOUS ADMISSION BUT REFUSED A PEG TUBE. NO FAMILY HERE AT THIS TIME BUT NURSE HAS TALKED WITH HIS BROTHER
--- NOTE | 2018-06-16 13:35 | NUR ---
Nutrition: Pt assessed because of stage III wound on coccyx. NPO currently. Pt was recently discharged after SI, OD. Readmitted now for SOA. Wt: 186#. Alb 1.5, prealb 9.3. H/o COPD, CAD. Increased nutrient needs R/T wound healing AEB stage III wound on coccyx. RECOMMEND MVI. Tay ordered for added protein. Hopeful for schneider diet advancement and good po intake. Mild risk. Will follow labs, po intake, supplement intake.
--- NOTE | 2018-06-16 17:20 | NUR ---
ATTENTION CASE MANAGEMENT: PLEASE CONTACT PATIENTS BROTHER DANIEL CONTRERAS [phone]. BROTHER REPORTS THAT EARLIER IN WEEK PSYCHIATRIST SAID PT NEEDED TO HAVE A GUARDIAN. PROCESS WAS STARTED, BUT NOT COMPLETED. DANIEL BEN WOULD LIKE TO BE CONTACT REGARDING MAKING A GUARDIAN FOR PATIENT.
--- NOTE | 2018-06-16 17:37 | NUR ---
PT TITRATED TO 2L NC.
--- NOTE | 2018-06-16 18:11 | NUR ---
PT TO STAY ON DILTIAZEM PER CARDIOLOGY. PT AT 10MG/HOUR RIGHT NOW. EXPLAINED PT TO PT HE IS ASPIRATING. PT INSISTS ON HAVING LIQUIDS. PT HAVING ICE CHIPS AND SIPS OF WATER. PT REQUESTING HYDROCODONE AND XANAX. THIS MEDICATIONS ADMININSTERED. NOTIFIED PT INSISTING ON LIQUIDS AND PO PAIN MEDICATION. SPOKE TO BROTHER ABOUT PT'S WISHES FOR CARE. BROTHER WOULD LIKE TO SPEAK TO DOCTOR ABOUT PT'S CONDITION.
[2018-06-17] VITALS (10 sets, daily range): BP systolic 133–179; BP diastolic 67–83
--- NOTE | 2018-06-17 04:42 | NUR ---
PT COMPLAINING OF NOT BEING ABLE TO DRINK WATER. PT FAILED BEDSIDE SWALLOW STUDY DONE BY THIS NURSE. PT WAS WITNESSED TO CHOKE AND COUGH WITH SMALL SIPS OF WATER. PT STATED HE WANTED TO LEAVE AMA. THIS NURSE EXPLAINED TO HIM THAT THE PHYSICIAN WILL BE IN TO SEE HIM IN THE MORNING. PT VERY NON-COMPLIANT WHEN ASKED TO BE REPOSITIONED IN THE BED. PT HAS YELLED AT THIS NURSE MULTIPLE TIMES, DEMANDING TO HAVE PAIN MEDICATION EVEN AFTER HE HAS RECEIVED HIS PAIN MEDICATION. LAB UNABLE TO DRAW LABS FROM PATIENT THIS MORNING.
[2018-06-17 07:21] LABS: ABSOLUTE LYMPHOCYTES 0.5 thou/uL (0.8-5.3); ABSOLUTE MONOCYTES 0.3 thou/uL (0.0-1.2); ABSOLUTE NEUTROPHILS 13.1 thou/uL (1.6-8.1); BASOPHILS 0.2 %; HEMATOCRIT 28.4 % (42.0-52.0); HEMOGLOBIN 9.1 gm/dL (14.0-18.0); LYMPHOCYTES 3.3 %; MCHC 32.1 g/dL (28.0-37.0); MCV 80.8 fL (80.0-100.0); MONOCYTES 2.3 %; MPV 8.7 fl. (7.2-11.1); NUCLEATED RBCS 0 /100WBC; POLYS 94.2 %; RBC 3.52 mil/uL (4.50-6.00); RDW-CV 26.7 % (10.5-14.5)
[2018-06-17 07:36] LABS: PLATELET COUNT* 289 thou/uL (150-400)
[2018-06-17 07:52] LABS: ALBUMIN 1.6 g/dL (3.4-5.0); CALCIUM 7.5 mg/dL (8.5-10.1); CREATININE 0.7 mg/dL (0.6-1.3); POTASSIUM 3.9 mmol/L (3.5-5.1); TOTAL BILIRUBIN 0.4 mg/dL (<0.1-1.0); TOTAL PROTEIN 5.6 g/dL (6.4-8.2)
--- NOTE | 2018-06-17 09:40 | NUR ---
PATIENT ALERT AND DEMANDS WATER STATES TO MYSELF AND SPEECH PATHOLOGY THAT HE WAS AWARE OF RISK OF ASPIRATION. SPOKE WITH DR FERNANDEZ PATIENT WANTS TO BE DNR.
--- NOTE | 2018-06-17 13:08 | NUR ---
PATIENT TRANSFERED TO RM 210 PRIOR TO 1200. DENIED SOA OR CP. REPORT GIVEN TO ANASTACIO Casillas RN.
--- NOTE | 2018-06-17 13:20 | NUR ---
ASSUMED PT. CARE AND RECIEVED REPORT FROM ROBYN STORM. PT. ARRIVED TO ROOM 210 @ 1218. PT. A/OX4, VSS, MONITOR PLACED SHOWING SR. PT. C/O SOB CONSISTANTLY. ON 3L NC IN MID 90'S. NOT TIME FOR BREATHING TREATMENT. FULL ASSESSMENT COMPLETED, REFER TO CHARTING. PT. INCONT. OF STOOL, DRESSING TO COCCYX FULL OF STOOL REQUIRING REPLACEMENT. PT. TRANSFERED WITH ALL BELONGINGS (CELL PHONE, CHECK BOOK-PLACED IN BEDSIDE TABLE). WHILE DISCUSSING CARE WITH PT. HE STATES HE IS NOT ASPIRATING AND WE ARE ALL LYING TO HIM. HE IS ASKING FOR WATER REPEATEDLY, GIVEN ICE CHIPS ONLY PER ORDERS. PT. IS COUGHING CONSISTANLTY. SOME SPUTUM OUT THIN-YELLOW/GREEN. CALL LIGHT IN REACH, WILL CONTINUE WITH PLAN OF CARE.
--- NOTE | 2018-06-17 17:36 | NUR ---
PT. NOT PROGRESSING TOWARDS GOALS. FORGETTING WHEN HE HAS RECEIVED MEDICATIONS OR TREATMENTS. PT. ASKING ABOUT BREATHING TREATMENT AND PAIN MEDS SEVERAL TIMES AFTER HAVING RECEIVING THEM IN THE LAST HOUR. PT. DID NOT TOLERATE WOUND CARE WELL, UNABLE TO TURN ON SIDE FOR TIME ENOUGH TO DO PROPER WOUND CARE. PT. BECOMING VERY AGITATED AND SHORT OF BREATH. PT. PASS GAS IN RN FACE AND LAUGHING STATING "SERVES YOU RIGHT". PT. EDUCATED MULTIPLE TIMES THROUGH OUT THE DAY ABOUT ASPIRATION, COUGHING/DEEP BREATHING. PT. REFUSING TO USE WEDGES FOR TURNS, DID ALLOW STAFF TO USE PILLOWS. PT. HEART RATE DID INCREASE FOR APPROX. 1 HOUR TODAY. EKG OBTAINED SHOWING ST WITH RATE RANGING FROM 130'S TO 160. PT. GIVEN IV METOPROLOL PER PRN ORDERS. HEART RATE EVENTUALLY DID COME BACK DOWN AND STAYED IN THE 90'S SR. HOURLY ROUNDING COMPLETED THROUGH OUT THE DAY FOR PT. SAFETY.
--- NOTE | 2018-06-17 19:16 | NUR ---
PT. AGITATED, WANTING BREATHING TREATMENTS MORE OFTEN THAN ORDERED. PT. DENIES HE HAS PNEUMONIA OR IS ASPIRATING. REFUSING TO GET OFF BEDPAN IN A TIMELY MANNER, EDUCATION GIVEN.
[2018-06-18] VITALS: BP 174/88
[2018-06-18 04:00] VITALS: BP 157/84
[2018-06-18 05:03] LABS: BE -1.4 mmol/L (-2 to +3); HCO3 23.4 mmol/L (22.0-26.0); PCO2 39.1 mmHg (35.0-45.0); PO2 83.5 mmHg (75.0-100.0); pH 7.394 (7.340-7.450)
[2018-06-18 05:23] LABS: HEMATOCRIT 29.7 % (42.0-52.0); HEMOGLOBIN 9.5 gm/dL (14.0-18.0); MCH 26.2 pg (26.0-34.0); MCV 81.7 fL (80.0-100.0); MPV 8.7 fl. (7.2-11.1); NUCLEATED RBCS 0 /100WBC; PLATELET COUNT* 311 thou/uL (150-400); RBC 3.63 mil/uL (4.50-6.00); RDW-CV 26.6 % (10.5-14.5)
[2018-06-18 05:36] LABS: WBC 31.3 thou/uL (4.0-11.0)
[2018-06-18 06:23] LABS: ABSOLUTE LYMPHOCYTES 0.6 thou/uL (0.8-5.3); ABSOLUTE MONOCYTES 0.6 thou/uL (0.0-1.2); METAMYELOCYTES 2 %
[2018-06-18 06:24] LABS: ANISOCYTOSIS 1+; HYPOCHROMASIA 1+; OVALOCYTES 1+; PLATELET ESTIMATE ADEQUATE
[2018-06-18 08:00] VITALS: BP 156/85
--- NOTE | 2018-06-18 08:00 | NUR ---
RECEIVED REPORT AND ASSUMED CARE AT 1900. VSS. CARDIAC MONITORING IN PLACE. PT REPORTS PAIN 10/10, PRN PAIN MEDICATION ADMIN PER ORDERS. ASSESSMENT COMPLETED CHARTED. PT ATTEMPTED TO TAKE PO ORDERED, EDUCATED ON ASPIRATION RISK, HX OF ASPIRATION. UNABLE TO SWALLOW TO TAKE PO MEDICATION, COUGHING AND SPITTING. VERBALIZED INABILITY TO TAKE PO MEDICATION, PT INQUIRED ABOUT PEG TUBE PREVIOUSLY DISCUSSED WITH PHYSICIAN AND REFUSED IN PAST DISCUSSIONS.PT STSTED INTEREST IN HAVING PEG TUBE PLACED, PT TEMP DECREASED, UE COOL TO TOUCH. BEAR HUGGER PLACED OVER PT, PHYSICIAN NOTIFIED, ORDERS RECEIVED. PT MONITORED AND TEMP INCREASED TO WNL. BED LOCKED IN LOWEST POSITION, CALL LIGHT WITHIN REACH, BED ALARM ON, POSITION CHANGED EVERY TWO HOURS. HOURLY ROUDNING COMPLETED AND ALL NEEDS MET. WILL CONTINUE TO MONITOR FOR REMAINDER OF THE SHIFT
--- NOTE | 2018-06-18 10:49 | NUR ---
ASSUMED CARE OF PT AT 0730. PT LYING IN BED REQUESTING ICE CHIPS AND WATER. PT EDUCATED ON ASPIRATION PRECAUTIONS AND NEED FOR PEG TUBE. PT STATES HE IS READY TO GET THE PEG TUBE NOW. PT EDUCATED ON LIMITATIONS REGARDING ICE CHIPS AND SIPS OF WATER. PT IRRITABLE, ANGRY, YELLING OUT ICE CHIPS AND WATER. THIS RN SPOKE WITH PT BROTHER, DANIEL WHO IS ON HIS WAY UP TO THE HOSPITAL TO SPEAK WITH PHYSICIAN. PER DR FERNANDEZ, OK FOR PT TO HAVE SIPS OF WATER AND ICE CHIPS SPARINGLY. DURING MEDICATION ADMINISTRATION, PT NOTED TO ASPIRATE WITH MINIMAL WATER FOR CARDIZEM. PT STATES, HE DID NOT HAVE ENOUGH WATER TO SWALLOW THE PILL AND SPIT PILL OUT. MEDICATIONS HELD AT THIS TIME. PT COMPLAINS OF PAIN TO BACK, TREATED WITH PRN DILAUDID WITH PARTIAL RELIEF. PT IS A&0X4, FORGETFULNESS NOTED. ANASARCA NOTED THROUGHOUT PT. PT TRACING SR ON THE UNLOADER OPERATOR. ON 4L NC SAT 100%. BREATH SOUNDS COARSE, WHEEZY AND DIMINISHED WITH CRACKLES, TACHYPNEA NOTED. LI TO DEPENDENT DRAINAGE. PT GOAL FOR TODAY IS PAIN MGMT, ID CONSULT FOR INCREASED WBC AND COMPLIANCE WITH NURSING AND HEALTHCARE STAFF. PT UP WITH MAX ASSIST. AM ASSESSMENT CHARTED. MEDICATIONS PER DEC. ATTEMPTED TO REPOSITION PT EVERY 2 HOURS FOR COMFORT AND WOUNDS, PT REFUSING TO BE TURNED, EDUCATION GIVEN. HOURLY ROUNDING OBSERVED. BED IN LOW POSITION. BED ALARM IN PLACE. FALL PRECAUTIONS IN PLACE. CALL LIGHT WITHIN REACH. WILL CONTINUE PLAN OF CARE.
[2018-06-18 12:12] VITALS: BP 164/95
--- NOTE | 2018-06-18 12:59 | CON ---
[address] [address] CONSULTATION Name: PAULINO CONTRERAS Room: [address] IN .R.#: [id number] Admission: 06/15/18 Attend Phys: Jermaine Suh MD Discharge: Date of : 54 Report #: [id number] THIS REPORT FOR: //name// CC: Jermaine Scott Adona DATE OF SERVICE: 06/15/2018 INDICATION: Atrial fibrillation with rapid ventricular response rate. HISTORY OF PRESENT ILLNESS: The patient is a 67-year-old gentleman who has had multiple hospitalizations recently with various issues including respiratory failure. The patient apparently went home yesterday and returned with acute respiratory failure. He was given multiple breathing treatments. He is now in atrial fibrillation with a rapid ventricular response rate. He is on a diltiazem drip for rate control, but having some mild hypotension with this. He does not have any chest pain. He has significantly short of breath and this is improving. He denies fever. He has a cough, minimally productive of sputum. He has a history of atrial arrhythmias in the recent past, which has been treated with beta el, diltiazem and digoxin. He is not anticoagulated as he is not felt to be a good candidate for chronic anticoagulation. PAST MEDICAL HISTORY: 1. COPD. 2. Multifocal atrial tachycardia. 3. Atrial flutter. 4. Atrial fibrillation. 5. Chronic back pain. 6. Chronic opioid use. 7. Chronic alcohol abuse. 8. Hypertension. ALLERGIES: None known. HOME MEDICATIONS: Amlodipine 10 mg p.o. daily, Pulmicort inhaler b.i.d., Prozac 40 mg daily, folic acid 1 mg daily, Lidoderm patch topically daily, acetaminophen/hydrocodone 5/325 two tablets q.4 hours p.r.n., Xopenex p.r.n. shortness of breath, Lopressor 50 mg b.i.d., Singulair 10 mg p.o. at bedtime, prednisone 30 mg p.o. daily, and Flomax 0.4 mg p.o. daily. SOCIAL HISTORY: The patient lives with his son. He has a 79-kcmc-trbv smoking history and reports cessation 1 year ago. He drinks alcohol daily. FAMILY HISTORY: Noncontributory. PHYSICAL EXAMINATION: [place] [address] CONSULTATION Name: BENRAUDEL KINGSLEYDARLENE Bella Room: [address]#: [id number] Admission: 06/15/18 Attend Phys: Jermaine Suh MD Discharge: Date of : 54 Report #: [id number] VITAL SIGNS: Blood pressure 104/56, pulse presently in the 130s-160s and irregularly irregular. GENERAL: This is a thin gentleman who is in no distress. Mood and affect appropriate. HEENT: Normocephalic, atraumatic. Extraocular muscles intact. Mucous membranes moist. NECK: Shows no jugular venous distention. CHEST: Reveals decreased breath sounds throughout with expiratory rhonchi. CARDIAC: Reveals a tachycardic rhythm that is irregularly irregular. I do not appreciate gallop or murmur. ABDOMEN: Reveals normal bowel sounds. EXTREMITIES: Show no edema. SKIN: Warm and dry. A 12-lead EKG shows atrial fibrillation with rapid ventricular response rate. Labs are reviewed. Sodium 134, potassium 4.3, chloride 96, bicarb 29, BUN 34, creatinine 1.2, serum glucose 112. LFTs within normal limits. Troponin less than 0.06. NT-proBNP 2774. White blood cell counts 18.8, hemoglobin 10.3, platelet count 539,000. Chest x-ray shows bilateral infiltrate versus edema, greater on the right lower and mid lung zones. Echocardiogram from early May 2018, shows normal EF and grade 1 diastolic dysfunction. IMPRESSION AND RECOMMENDATIONS: 1. Atrial fibrillation with rapid ventricular response rate. Continue diltiazem drip as tolerated for rate control. I am adding digoxin and loading in bolus fashion for improve rate control. May consider alternate antiarrhythmic depending on his response to these medications. Certainly, his atrial fibrillation is exacerbated by his underlying respiratory failure and medications to treat. 2. Acute respiratory failure, multifactorial including chronic obstructive pulmonary disease and possible pneumonia. Treatment per pulmonology and primary physicians. 3. Chronic obstructive pulmonary disease, per primary physician and pulmonology. <ELECTRONICALLY SIGNED> By: Hill Figueroa MD, FACC 06/18/18 1259 0845 [id number] Figueroa MD, FACC /nt
[2018-06-18 16:00] VITALS: BP 170/88
--- NOTE | 2018-06-18 17:01 | NUR ---
VSS. CARDIAC MONTIORING IN PLACE WITH NO CHANGES THIS SHFT. PT NOT PROGRESSING TOWARDS GOALS. PT REMAINS NPO EXCEPT FOR ICE CHIPS. IVF INFUSIGN PER ORDERS. NEW IV STARTED TO LEFT HAND FOR CARDIZEM GTT. PT'S PAIN WELL MANAGED WITH DILAUDID. PT HAD WOUND CARE AND PICTURES TAKEN YESTERDAY. BUT REFUSED WOUND CARE/PICTURES TODAY. PT REFUSED LABS TODAY. PT UNABLE TO MAKE DECISION REGRDING PEG TUBE. PT JUST CONTINUALLY STATES HE WANTS WATER DESPITE EDUCATION WHY PT CAN NOT HAVE WATER DUE TO ASPIRATION. EDEMA NOTED. PT REFUSING TURNS. PT INFORMED OF PLAN OF CARE. PT'S BROTHER ALSO UPDATED ON PLAN OF CARE. CALL LIGHT IS WITHIN REACH. WILL CONTINUE TO MONITOR FOR DURATION OF SHIFT.
--- NOTE | 2018-06-18 17:03 | EKG ---
[place] [address] ELECTROCARDIOGRAM REPORT Name: PAULINO CONTRERAS Room: [address] ADM IN .R.#: [id number] Admission: 06/15/18 Attend Phys: Jermaine Suh MD Discharge: Date of : 54 Report #: [id number] THIS REPORT FOR: //name// [facility] Test Date: 2018-06-17 Test Time: 15:55:30 Pat Name: PAULINO BEN Department: Room: [address] Gender: M Felt Checker: : 1950 Requested By: Tin Medley Order Number: [id number] MD: Hill Figueroa Measurements Intervals [place] Rate: 107 P: 74 [place]: 148 QRS: 35 QRSD: 132 T: -26 QT: 346 QTc: 462 Interpretive Statements Sinus tachycardia Right bundle branch block Baseline wander in lead(s) V5 Compared to ECG 06/15/2018 06:10:51 Atrial fibrillation no longer present Electronically Signed On 06-18-2018 17:03:02 CDT by Hill Figueroa [email or web address] <ELECTRONICALLY SIGNED> By: Hill Figueroa MD, FACC 06/18/18 1703 1555 1555 Hill Figueroa MD, FAC /EPI
[2018-06-18 20:03] VITALS: BP 157/89
--- NOTE | 2018-06-18 23:40 | CON ---
[address] [address] CONSULTATION Name: PAULINO VILLARREAL Room: [address] IN .R.#: [id number] Admission: 06/15/18 Attend Phys: Jermaine Suh MD Discharge: Date of : 54 Report #: [id number] THIS REPORT FOR: //name// CC: Jermaine Scott Ray DATE OF SERVICE: 06/18/2018 CONSULTATION: Infectious Diseases. HISTORY OF PRESENT ILLNESS: Mr Villarreal is a 67-year-old white male who was admitted to [facility] on 06/15/2018 with increased shortness of breath. The patient had just been discharged after being hospitalized from 05/29/2018 to 06/14/2018. At that time, the patient presented with a doxepin overdose, resulting in respiratory failure and mechanical ventilation. The patient successfully was weaned from the ventilator and was discharged to a jail. At the jail, the patient became more short of breath. He was given 5 breathing treatments and then sent to the ER, at which time he was found to be in atrial fibrillation with rapid response. He did have basilar infiltrates. He was admitted to the hospital and treated for possible aspiration pneumonia with Zosyn. He was doing okay, but then this morning, he was noted to have a white count of 31,000. For this reason, Infectious Disease consultation was requested. PAST MEDICAL HISTORY: Significant for COPD and asthma. The patient has multifocal atrial tachycardia, atrial fibrillation and atrial flutter in the past. He has had a thoracotomy for lung cancer. He also has pleural plaquing from asbestosis. In addition to his pulmonary conditions, the patient has hypertension, prostatic hypertrophy, chronic back pain, anxiety and depression. Apparently after his previous long hospitalization, the patient failed a swallow test with len aspiration and has been n.p.o., but is very unhappy about this. He requests oral liquids and says he is willing to take the risk of aspiration and further pulmonary insufficiency. SOCIAL HISTORY: The patient's face sheet shows that he is , but says he was living with his son prior to the previous hospitalization wherein he was then discharged to rehabilitation. He was a pack-a-day smoker until about a year ago and has a 77-gsrs-rkpy smoking history. He has a history of regular alcohol consumption on a daily basis. REVIEW OF SYSTEMS: The patient says he feels fine, but is just thirsty. Denies fevers, chills, or sweats. He does note that he is weak and in fact is noted to be too weak to get out of bed on his own. The patient denies headache, sinus congestion, sore throat, trouble swallowing. The patient has no insight into his swallowing deficits. The patient denies cough or chest pain. He does have chronic shortness of breath. The patient denies nausea, vomiting, diarrhea, [place] [address] CONSULTATION Name: PAULINO VILLARREAL Room: [address] IN [facility]#: [id number] Admission: 06/15/18 Attend Phys: Jermaine Suh MD Discharge: Date of : 54 Report #: [id number] constipation. He has chronic back pain. He has weakness in his extremities, although he does not really appreciate that. PHYSICAL EXAMINATION: GENERAL: The patient appears his stated age, alert, arguing about n.p.o. status with everybody. He is comfortable, not in distress. VITAL SIGNS: Show the patient has been afebrile throughout this hospitalization. HEENT: Negative. Dentition is poor. The throat is very dry. NECK: Supple. HEART: Sounds S1, S2. CHEST: Breath sounds are diminished. ABDOMEN: Belly is soft, nontender. EXTREMITIES: Unremarkable. LABORATORY DATA: The white count on admission was 18.8, but then went down to 14,000 until today's lab, which was 31, hemoglobin 9.5, hematocrit 29.7, platelets 311,000. Electrolytes, BUN and creatinine are normal. BUN is somewhat elevated at 34, creatinine 0.7. Liver function tests are normal. Lactate is normal. BNP is elevated at 2744. The blood cultures on admission are reported as being "positive on the machine, but Gram stain on the liquid is negative." Cultures, ID and sensitivity studies are pending. Chest x-ray initially showed basal infiltrate which seemed to be somewhat improving. ASSESSMENT AND PLAN: In summary, the patient with recent long hospitalization, chronic obstructive pulmonary disease, aspiration, who had a sudden spike in his white count without really any other significant change in his condition. I would worry where the patient may have talked to someone into giving him a drink and aspirated causing the high white count. This white count is a bit anomalous given his overall history and could potentially represent a lab error. The patient has had a lot of healthcare exposure and is certainly colonized with resistant zachariah. I agree with Zosyn for healthcare-associated aspiration. With the high white count, I would like to add vancomycin. The patient is not able to produce any sputum for culture. If he gets a fever, we can do blood cultures. It may be worthwhile to repeat the CBC as well as check procalcitonin and followup chest x-rays. The patient is able to have a cogent conversation and says he appreciates that he has a tendency towards aspiration and that swallowing could be deleterious to his health, but does say he wants to take the risk. He has been very ambivalent about recommendations for a gastrostomy tube. He has changed his mind several times in the last 48 hours. It may be worthwhile to have a psychiatrist do a competency evaluation and if competent, a [place] [address] CONSULTATION Name: PAULINO VILLARREAL Room: [address]#: [id number] Admission: 06/15/18 Attend Phys: Jermaine Suh MD Discharge: Date of : 54 Report #: [id number] conference to see whether it would be appropriate to comply with the patient's request for oral feeding in spite of the aspiration risk. I appreciate the opportunity of input in the care of this complex patient. Thank you for requesting ID input. Dr. Ott will assume followup care tomorrow. <ELECTRONICALLY SIGNED> By: Chavo Baldwin MD 06/18/18 2340 1256 2000Jolaisha Baldwin MD /nt
[2018-06-19] VITALS: BP 167/79
[2018-06-19 04:00] VITALS: BP 170/87
[2018-06-19 04:56] LABS: ABSOLUTE LYMPHOCYTES 0.5 thou/uL (0.8-5.3); ABSOLUTE MONOCYTES 0.3 thou/uL (0.0-1.2); ABSOLUTE NEUTROPHILS 19.9 thou/uL (1.6-8.1); BASOPHILS 0.1 %; HEMATOCRIT 29.4 % (42.0-52.0); HEMOGLOBIN 9.3 gm/dL (14.0-18.0); LYMPHOCYTES 2.2 %; MCH 26.2 pg (26.0-34.0); MCHC 31.7 g/dL (28.0-37.0); MCV 82.6 fL (80.0-100.0); MONOCYTES 1.6 %; MPV 8.9 fl. (7.2-11.1); NUCLEATED RBCS 0 /100WBC; PLATELET COUNT* 259 thou/uL (150-400); POLYS 96.1 %; RBC 3.56 mil/uL (4.50-6.00); RDW-CV 26.3 % (10.5-14.5); WBC 20.7 thou/uL (4.0-11.0)
--- NOTE | 2018-06-19 05:31 | NUR ---
RECEIVED REPORT AND ASSUMED CARE AT 1900. VSS. CARDIAC MONITORING IN PLACE. PT REPORTED PAIN, PRN MEDICATION ADMIN PER ORDERS. ASSESSMENT COMPLETED CHARTED. POSITION CHANGE ENCOURAGED EVERY TWO HOURS AND PRN. PT REFUSED POSITION CHANGING, EDUCATED ON RISK FOR WORSENING OF CURRENT PRESSURE ULCERS AND POSSIBLITY OF NEW SORES IF NOT OFF LOADING. PT VERBALIZED UNDERSTANDING. PT DIAPHORETIC, BEDDING CHANGED AND PT AGREEABLE TO POSTION CHANGE AT THIS TIME. MEDICATION ADMIN PER ORDERS. PT BEDREST, ON 4L NC, NPO. BED LOCKED IN LOWEST POSITION, CALL LIGHT WITHIN REACH, BED ALARM ON. HOURLY ROUNDING COMPLETED AND ALL NEEDS MET. WILL CONTINUE TO MONITOR
[2018-06-19 05:44] LABS: ALBUMIN 1.9 g/dL (3.4-5.0); CALCIUM 7.9 mg/dL (8.5-10.1); CREATININE 0.7 mg/dL (0.6-1.3); POTASSIUM 4.2 mmol/L (3.5-5.1); TOTAL BILIRUBIN 0.5 mg/dL (<0.1-1.0)
[2018-06-19 08:00] VITALS: BP 162/71
--- NOTE | 2018-06-19 10:34 | NUR ---
PT ASKING FOR WATER MULTIPLE TIMES THIS MORNING. TOLD NOVELTY MAKER AND DAY SHIFT NURSES ALONG WITH ANCILLARY STAFF HE WANTS TO GO ON HOSPICE SO HE CAN EAT AND DRINK. WILL SPEAK WITH PHYSICIAN ABOUT IT
--- NOTE | 2018-06-19 11:28 | NUR ---
SPOKE TO PATIENT TO DISCUSS DISCHARGE PLANNING NEEDS. PATIENT INFORMS THAT HE HAD SPOKEN TO A NURSE AND INFORMED HER THAT HE 'WANTS HOSPICE, BECAUSE IF YOU CAN'T DRINK WATER THEN WHAT'S THE POINT IN LIVING.' PATIENT DOES NOT WANT TO RETURN HOME WITH HOSPICE HE DOESN'T WANT TO BE A BURDEN TO HIS SON, AND DOESN'T WANT HIS GRAND DAUGHTER TO SEE HIM GOING THROUGH THIS. PATIENT INFORMS THAT HE WANTS TO DISCUSS THIS WITH THE DOCTOR. PATIENT ALSO INFORMS THAT HE DOES NOT WANT TO DISCUSS THIS WITH HIS SON UNTIL HE MAKES HIS FINAL DECISION. CM WILL REMAIN AVAILABLE TO ASSIST AND FOLLOW NEEDED.
[2018-06-19 11:39] VITALS: BP 121/85
--- NOTE | 2018-06-19 14:22 | NUR ---
GI CAME TO UNIT EARLIER AND SAID THEY WOULD DO PEG TUBE AT 1430. THEY THEN CALLED BACK AND SAID THAT THEY CAN NOT DO IT TODAY D/T PT RESPIRATORY RATE BEING TOO HIGH, STATE THAT THEY NEED A FEW MORE DAYS OF ANTIBIOTICS AND THEN THEY WILL REEVALUATE. UPDATED PT, HE IS UPSET, SAID HE ALWAYS BREATHES FAST, THAT IF THEY DO NOT DO PROCEDURE TODAY HE WANTS TO GO HOME WITH HOSPICE.
--- NOTE | 2018-06-19 15:29 | NUR ---
Pt was to have peg tube placed today, GI rounded, requesting that Pt have IVABX a few more days before they will place peg. Nurse updated Dr Medley, consult of pulm placed, additional orders for ABX received. Following.
[2018-06-19 15:41] VITALS: BP 167/80
[2018-06-19 20:04] VITALS: BP 163/87
[2018-06-20] VITALS: BP 169/79
--- NOTE | 2018-06-20 01:50 | NUR ---
RECEIVED REPORT AND ASSUMED CARE AT 1900. VSS. CARDIAC MONITORING IN PLACE. PT REPORTS PAIN IN HIS BACK, PRN MEDICATION ADMIN PER ORDERS. ASSESSEMENT COMPLETED CHARTED. PT ON BED REST, POSITION CHANGES ENCOURAGED EVERY TWO HOURS AND PRN. MEDICATION ADMIN PER EMAR. BED LOCKED IN LOWEST POSITION, CALL LIGHT WITHIN REACH. BED ALARM ON. WILL CONTINUE TO MONITOR FOR REMIANDER OF THE SHIFT
[2018-06-20 04:00] VITALS: BP 163/82
--- NOTE | 2018-06-20 05:33 | NUR ---
BEGAN CARE OF PT AT APPROXIMATELY 0200 TODAY. PT IS ABLE TO COMMUNICATE HIS NEEDS TO STAFF WITH SOME DIFFICULTY; HE IS OFTEN CONFUSED AND FORGETFUL AND HE IS SOMETIMES HARD TO UNDERSTAND. CURRENT PAIN MEDICATION REGIMEN HAS BEEN ADEQUATE FOR CONTROLLING HIS PAIN UP TO THIS TIME. WOUND CARE IS FOLLOWING. PT HAS REMAINED NPO, EXCEPT FOR SMALL SIPS WITH MEDICATIONS, UP TO THIS TIME.
[2018-06-20 07:30] VITALS: BP 118/74; BP 172/84
--- NOTE | 2018-06-20 08:39 | NUR ---
PT HAS REFUSED PHYSICAL THERAPY SERVICES FOR MULTIPLE CONSECUTIVE THERAPY DAYS. RECENTLY HAS ASKED TO BE TAKEN OFF PHYSICAL THERAPY LIST. HE WOULD ALSO LIKE TO BE PLACED ON HOSPICE SERVICES. PATIENT WILL BE DC'ED FROM P.T. SERVICES AT HIS REQUEST. LUIS MINA, MPT
--- NOTE | 2018-06-20 10:27 | NUR ---
RECEIVED PT CARE 0700. HE IS AWAKE/ALERT AND ORIENTED X2-3. FORGETFUL/CONFUSED AT TIMES. VSS. O2 SAT 96% ON 4L NC. REPOSITIONED FOR COMFORT. BILATERAL FEET ELEVATED ON PILLOWS. C/O BACK PAIN AND RIGHT SHOULDER PAINS. PRN PAIN MEDICATION GIVEN WITH GOOD RELIEF. AM ASSESSMENT CHARTED. MEDS PER DEC. LI DRAINING CLEAR YELLOW URINE TO DEPENDENT DRAIN. NPO EXCEPT ICE CHIPS. CARDIZEM GTT INFUSING AT 5 MG/HR. IVF INFUSING. BED ALARM ON. CALL LIGHT WITHIN REACH. WILL CONTINUE TO MONITOR.
[2018-06-20 12:00] VITALS: BP 178/83
[2018-06-20 16:01] VITALS: BP 215/80
[2018-06-20 20:00] VITALS: BP 167/82
[2018-06-21] VITALS (7 sets, daily range): BP systolic 154–220; BP diastolic 82–110
--- NOTE | 2018-06-21 03:57 | NUR ---
ASSUMED PT CARE AT 1930. ASSESSMENT COMPLETED CHARTED. ABLE TO MAKE SOME NEEDS KNOWN. PT RESTING IN BED AT THIS TIME. IV CARDIZEM RUNNING AT 5, IV ABT GIVEN PER P.O., C/O SHOULDER AND BACK PAIN NOTED AND GAVE PAIN MEDICATION PRN PER P.O. PT IS AT TIMES HARD TO UNDERSTAND, CAN SOMETIMES BE GRUMPY, AND IS NPO AT THIS TIME R/T ASPIRATION RISK. PT WILL BE GETTING PEG TUBE IN AFTERNOON. WILL CONITNUE TO MONITOR.
[2018-06-21 08:16] LABS: HEMATOCRIT 31.5 % (42.0-52.0); MCH 25.5 pg (26.0-34.0); MCHC 31.6 g/dL (28.0-37.0); MCV 80.7 fL (80.0-100.0); MPV 9.9 fl. (7.2-11.1); RBC 3.9 mil/uL (4.50-6.00); RDW-CV 25.3 % (10.5-14.5); WBC 35.7 thou/uL (4.0-11.0)
[2018-06-21 08:26] LABS: CALCIUM 7.6 mg/dL (8.5-10.1); CREATININE 0.5 mg/dL (0.6-1.3); MAGNESIUM 2.3 mg/dL (1.8-2.4); POTASSIUM 3.3 mmol/L (3.5-5.1)
--- NOTE | 2018-06-21 11:00 | NUR ---
RECEIVED PT CARE 0700. HE IS AWAKE/ALERT AND ORIENTED X2, HE IS FORGETFUL AND CONFUSED AT TIMES. VSS. PLUSH DRESSER TRACING SR WITH BBB. O2 SAT 100% ON 4L NC. TIRATED TO 3L NC. HE IS 98% ON 3L NC, TIRATED DOWN TO 2L NC THIS AM. HE COMPLAINS OF BACK AND RIGHT SHOULDER PAIN. PRN PAIN MEDICATION GIVEN WITH PARTIAL RELIEF. AM ASSESSMENT CHARTED. MEDS PER DEC. WOUND DRESSINGS CHANGED THIS AM AND BED BATH GIVEN PER NURSING STAFF. AFTER HIS BED BATH THE PATIENT BECAME MORE SHORT OF BREATH AND REQUIRED AN INCREASE IN HIS O2 TO 6L NC. AFTER 30 MIN OF 'CATCHING HIS BREATH' AFTER HIS BED BATH HE WAS ABLE TO KEEP HIS SATS >90% WITH HIS O2 AT 4L NC. PACU TOOK PATIENT FOR PEG TUBE PLACEMENT BUT HE HAD A RUN OF VTACH WITH SOA. PEG TUBE PLACEMENT ON HOLD FOR TODAY AND POTENTIALLY ON THE SCHEDULE FOR TOMORROW. GI WAS ABLE TO DISCUSS THE PLAN OF CARE WITH THE PATIENTS SON/FAMILY. IV SALINE LOCKED DUE TO PATIENTS INCREASE SOA. CARDIZEM GTT INFUSING. REPOSITIONING PATIENT FOR COMFORT AND Q2 TURNS. HE REFUSES TO TURN EVERY 2 HOURS AND NEEDS A LOT OF ENCOURAGEMENT TO CHANGE POSITIONS IN BED. BED ALARM ON. WILL CONTINUE TO MONITOR.
--- NOTE | 2018-06-21 11:56 | CON ---
[address] [address] CONSULTATION Name: PAULINO CONTRERAS Room: [address] IN .R.#: [id number] Admission: 06/15/18 Attend Phys: Jermaine Suh MD Discharge: Date of : 54 Report #: [id number] THIS REPORT FOR: //name// CC: Jermaine Scott Henderson DATE OF SERVICE: 06/19/2018 REFERRING PHYSICIAN: Tin Medley DO CHIEF COMPLAINT: COPD. HISTORY OF PRESENT ILLNESS: The patient is a 67-year-old male who is known to have chronic obstructive airways disease. He by history had been a smoker, 2 packs per day, quit a year ago. He has a [id number] smoking history, started about the age of 14. The patient is rehospitalized because of chronic aspiration condition. He has had intentional overdoses in the past. He has been intubated and ventilated on one occasion within the last month and a half or so. We were asked to see the patient today because of his COPD. He is scheduled to undergo an upper endoscopy with the intent of placing a PEG tube. He has chronic aspiration. His records were reviewed. According to the patient, he is not having any new shortness of breath. He has a minimal cough, no phlegm production. He is currently denying any fever, chills, nausea or vomiting. He has not had any abdominal pain. He is denying any bleeding events. His neurologic complaint is that of generalized weakness, inability to move his extremities effectively. He has been bedridden. He has had prolonged hospitalizations and rehab placement. PAST MEDICAL HISTORY: Consistent with chronic atrial fibrillation, chronic aspiration, COPD. He has had unintentional doxepin overdose within the last month and a half. He has history of hypertension, hypokalemia, history of pneumonia in the past. ALLERGIES: None known. SOCIAL HISTORY: He lives with his son when he is not in the hospital or at rehab. He is a prior smoker as outlined above. He quit a year ago. REVIEW OF SYSTEMS: System review negative other than what is outlined above. CURRENT MEDICATIONS: Consist of Rocephin, Solu-Medrol, Zithromax, Xopenex aerosol treatments, vancomycin, Nicoderm patch, folic acid, [place] [address] CONSULTATION Name: PAULINO CONTRERAS Room: [address]#: [id number] Admission: 06/15/18 Attend Phys: Jermaine Suh MD Discharge: Date of : 54 Report #: [id number] PHYSICAL EXAMINATION: VITAL SIGNS: Blood pressure 118/74, respiratory rate 16, pulse rate 65 and irregular, weight 206 pounds. GENERAL APPEARANCE: The patient is lethargic, will respond. He answers questions appropriately. He is not in any respiratory distress, respirations are nonlabored. He is oriented to person, place and time. HEAD: Atraumatic. EYES: Pupils are round, equal, reactive. ORAL CAVITY: Very poor dentition. Moist mucous membranes. NECK: No adenopathy or JVD. CHEST: Coarse breath sounds throughout, rhonchi. Breath sounds are equal. CARDIOVASCULAR: Irregular rhythm. No murmurs or rubs. ABDOMEN: Soft. No organomegaly. EXTREMITIES: 1+ edema bilaterally. SKIN: Warm, dry. No rash or lesions. NEUROLOGIC: The patient is extremely weak, has difficulty mobilizing his right upper extremity and unable to lift his legs up off of the bed. Cranial nerves do appear intact. Reflexes are sluggish bilaterally. LYMPHATICS: Negative. Pulses equal. MEDICAL IMAGING STUDIES: Chest x-ray reveals mild improvement in the interstitial changes that he has bilaterally. Records reflect a swallow study on 06/13/2018 demonstrating a high risk for aspiration and some spillage into the airways. Poor mechanical function of ability to swallow liquids and/or solids. On 06/01/2018, a CT of the chest performed did reveal coronary artery calcification, an anterior left pleural base mass, which has been actually biopsied, from a pleural standpoint that was negative. Atelectasis bilaterally. There is a collection of loculated fluid interpreted in the right lower lung field laterally with gas and fluid present within the loculation. An ultrasound needle pleural biopsy was performed on 05/10/2018 and that path report was negative for malignancy, although did show chronic fibrotic changes and inflammation. LABORATORY DATA: Sodium 140, potassium 4.2, chloride 105, CO2 of 27, BUN of 27, creatinine 0.7, EGFR 113. Bilirubin normal. Liver enzymes are unremarkable. A proBNP was elevated on 06/15/2018 at 2774. Hemoglobin and hematocrit of 9 and 29, white count 20,700. Blood cultures remain negative, no growth to date. On 06/18/2018, an arterial blood gas performed revealed a pH of 7.39, pCO2 of 39, pO2 of 83, bicarbonate of 23 while on 2 liters. IMPRESSION: 1. Chronic changes involving the right lower lobe as noted [place] [address] CONSULTATION Name: PAULINO CONTRERAS Room: [address]#: [id number] Admission: 06/15/18 Attend Phys: Jermaine Suh MD Discharge: Date of : 54 Report #: [id number] 2. Chronic obstructive airways disease. 3. Chronic aspiration with underlying pneumonitis, most likely accounting for the elevated white count. 4. Leukocytosis secondary to above. 5. Chronic atrial fibrillation. 6. Generalized weakness of undetermined etiology, may stem from a prior unintentional overdose in the past. RECOMMENDATIONS: Thyroid function studies. We will go ahead and obtain a repeat evaluation by the Neurology Service. At this time, from a pulmonary standpoint, I see no reason why the patient cannot undergo an upper endoscopy procedure with the intent of performing a PEG tube. This would help alleviate and hopefully minimize any aspiration events. Initiate aspiration precautions during this hospitalization as well. <ELECTRONICALLY SIGNED> By: Laureano Mcneal MD 06/21/18 1156 [id number] Mcneal MD /nt
[2018-06-22] VITALS: BP 170/92
[2018-06-22 01:21] LABS: BE 7.3 mmol/L (-2 to +3); HCO3 32.6 mmol/L (22.0-26.0); PO2 77.2 mmHg (75.0-100.0); pH 7.432 (7.340-7.450)
[2018-06-22 04:00] VITALS: BP 147/56
--- NOTE | 2018-06-22 06:09 | NUR ---
ASSUMED PT CARE AT 1930. ASSESSMENT COMPLETED CHARTED. THE NIGHT WENT ON, PT BECAME MORE SHORT OF BREATH, INSPIRATIONS PER MINUTE INCREASED, HEARTRATE WAS INCREASED, BP WAS STILL HIGH. TITRATED CARDIZEM UP TO 20ML/HR WITH SLIGHT DECREASE IN HEART RATE AND BLOOD PRESSURE. TEMPERATURE KEPT DECREASING TO 96 DEGREES, PUT WARMING BLANKET ON, PT WAS SWEATING THE WHOLE NIGHT. PT IS LESS RESPONSIVE TO PAINFUL STIMULI, LESS ABLE TO MOVE ARMS, LUNG SOUNDS ARE VERY COARSE, ABLE TO MAKE SOME NEEDS KNOWN AFTER QUESTIONING. NOTIFIED PHYSICIAN OF STATUS CHANGE AND STATED THAT IF HE NEEDED IT, PUT PT ON BIPAP. PT REFUSED AND KEPT TAKING OFF BIPAP. CALLED PHYSICIAN AGAIN AND MADE BIPAP PRN, DID STAT ABGS THAT WAS SLIGHTLY OFF BUT NOT CRITICAL. THEN, ASKED FOR SOMETHING TO HELP PT WITH AIR HUNGER AND HIS INCREASED RESPIRATIONS AND WAS ABLE TO GET SUBLINGUAL MORPHINE. ASKED ALSO FOR LASIX JUST INCASE IT WAS FLUID OVERLOAD AND PHYSICIAN WANTED TO WAIT TILL RESULTS FROM CHEST XRAY RETURNED. PT IS NOW RESTING IN BED, [id number] DONE TO KEEP OFF BOTTOM WOUNDS, WILL CONTINUE TO MONITOR.
--- NOTE | 2018-06-22 07:09 | NUR ---
I have reviewed the documentation by KIRILL BACA from to 06/21/18 and I concur with it. BLAISE BOOKER
[2018-06-22 08:10] VITALS: BP 134/75
[2018-06-22 08:24] LABS: HCO3 35.3 mmol/L (22.0-26.0); PO2 83.7 mmHg (75.0-100.0); pH 7.352 (7.340-7.450)
[2018-06-22 08:26] LABS: PCO2 65.1 mmHg (35.0-45.0)
--- NOTE | 2018-06-22 10:17 | NUR ---
Pt to begin TPN today, order placed.
[2018-06-22 11:59] VITALS: BP 186/82
--- NOTE | 2018-06-22 12:09 | NUR ---
RIGHT UPPER ARM EVALUATED FOR 6 MONGOLIAN TRIPLE LUMEN PICC BUT ALL VESSEL SIZES NOT LARGE ENOUGH TO ACCOMODATE. LEFT UPPER ARM BASILIC VESSSEL ACCESSED FOR 6 MONGOLIAN TRIPLE LUMEN PICC LINE. LINE PRE-TRIMMED TO 44 CM AND ADVANCED TO THE ZERO CONRAD WITH NO RESISTANCE MET. UPPER ARM CIRCUMFERENCE ABOVE INSERTION STEI = 11 1/2 ". SHERLOCK INDICATED LINE DOWN IN SVC, POST PROCEDURE CXR SHOWS TIP TERMINATES AT THE CAVOATRIAL JUNCTION PER RADILOLOGISTS INTERPRETATION. GUIDE WIRE REMOVED, INSERTINO SITE3 DRESSED. REPORT GIVEN TO SUSHIL STORM.
--- NOTE | 2018-06-22 12:45 | NUR ---
ASSUMED CARE OF PT AT 0730. PT LYING IN BED, PT VERY LETHARGIC, UNABLE TO FOLLOW COMMANDS. PT DOES NOT APPEAR TO BE IN ANY PAIN AT THIS TIME. PT TRACING ST ON THE CONTINUOUS PROCESS MACHINE OPERATOR. PT ON BIPAP SAT 98% RR 28. DNR. ANASARCA NOTED. ABG RESULTS BACK- REFER TO RESULTS- RESULTS GIVEN TO DR FERNANDEZ. NO NEW ORDERS AT THIS TIME. DR FERNANDEZ HERE ON UNIT AND ORDERS RECEIVED FOR CENTRAL LINE AND TO START TPN. LEFT UPPER EXTREMITY PICC LINE TRIPLE LUMEN PLACED AND VERIFIED BY CXR. TPN STARTED AT 40ML/HR. LI TO DEPENDENT DRAINAGE. PT INCONT OF BOWEL. PT ON BEDREST. NPO. CARDIZEM INFUSING AT 20ML/HR. BLOOD PRESSURES STABLE. PT GOAL FOR TODAY IS MONITOR RESPIRATORY STATUS AND ORIENTATION. AM ASSESSMENT CHARTED. MEDICATIONS PER DEC. PT REPOSITIONED EVERY 2 HOURS FOR COMFORT. HOURLY ROUNDING OBSERVED. BED IN LOW POSITION. CALL LIGHT WITHIN REACH. BED ALARM IN PLACE. FALL PRECAUTIONS IN PLACE. CALL LIGHT WITHIN REACH. WILL CONTINUE PLAN OF CARE.
--- NOTE | 2018-06-22 13:27 | NUR ---
Spoke with Pt's son regarding hospice. Son/family in agreement, but want to speak with hospitalist regarding POC. CM texted Dr Bernal and requested that he make contact with Pt's son to discuss treatment plan. CM discussed different hospice options with son, if that is the direction that we head, preference would be for a hospice house, no one would be at home to take care of Pt and family cannot afford LTC. Following
--- NOTE | 2018-06-22 15:52 | NUR ---
PRODUCTION STATISTICAL CLERK CONTACTED ANDRE WITH [employer] AND LEFT A MESSAGE TO INFORM OF REFERRAL TO ASSIST WITH MEDICAID [place]. ALSO CONACTED PATIENT'S SON AND LEFT A MESSAGE TO RETURN CALL. CM WILL REMAIN AVAILABLE TO ASSIST AND FOLLOW NEEDED.
[2018-06-22 16:02] VITALS: BP 172/72
--- NOTE | 2018-06-22 16:37 | NUR ---
NO ACUTE CHANGES THROUGHOUT SHIFT. REFER TO CHARTING. PT REMAINED ON BIPAP THROUGHOUT ENTIRE SHIFT. PT CONTINUES TO BE NPO. PT IS NOT PROGRESSING TOWARDS GOALS, SLEPT MOST OF DAY, VERY LETHARGIC AND DOES NOT RESPOND TO COMMANDS. CONTINUES TO TRACE SR/ST WITH OCCASIONAL PAC'S/PVC'S ON THE CRM DEVELOPER. CARDIZEM CONTINUES TO INFUSE AT 20ML HR. BLOOD PRESSURES STABLE. PT BROTHER HERE THIS AFTERNOON AND UPDATED ON CURRENT PLAN OF CARE. TPN INFUSING AT 40ML/ HR IN L PICC LINE. NPO. MEDICATIONS PER DEC. PT REPOSITIONED EVERY 2 HOURS FOR COMFORT. HOURLY ROUNDING OBSERVED. BED IN LOW POSITION. BED ALARM IN PLACE. FALL PRECAUTIONS IN PLACE. CALL LIGHT WITHIN REACH. WILL CONTINUE PLAN OF CARE.
--- NOTE | 2018-06-22 16:42 | EKG ---
[place] [address] ELECTROCARDIOGRAM REPORT Name: PAULINO CONTRERAS Room: [address] ADM IN .R.#: [id number] Admission: 06/15/18 Attend Phys: Jermaine Suh MD Discharge: Date of : 54 Report #: [id number] THIS REPORT FOR: //name// [facility] Test Date: 2018-06-21 Test Time: 22:52:07 Pat Name: PAULINO CONTRERAS Department: Room: [address] Gender: M Retail Wireless Sales Representative: : 1950 Requested By: Jermaine Suh Order Number: [id number] Reading MD: Chavo Dupree Measurements Intervals Elmer Rate: 106 P: 78 RI: 129 QRS: -18 QRSD: 116 T: 196 QT: 293 QTc: 389 Interpretive Statements Sinus tachycardia Multiform ventricular premature complexes Nonspecific intraventricular conduction delay Low voltage, precordial leads Abnormal T, consider ischemia, lateral leads Compared to ECG 06/17/2018 15:55:30 Ventricular premature complex(es) now present Low QRS voltage now present Electronically Signed On 06-22-2018 16:42:05 CDT by Chavo Dupree [email or web address] <ELECTRONICALLY SIGNED> By: Chavo Dupree MD, FACC 06/22/18 1642 51 51 Chavo Dupree MD, FAC /EPI
[2018-06-22 20:00] VITALS: BP 169/69
[2018-06-23] VITALS: BP 134/74
[2018-06-23 04:00] VITALS: BP 114/75
--- NOTE | 2018-06-23 06:32 | NUR ---
ASSUMED PT CARE AT 1930. ASSESSMENT COMPLETED CHARTED. PT IS LETHARGIC, UNABLE TO RESPOND TO MOST STIMULI, ON BIPAP MOST OF THE NIGHT EXCEPT WHEN HE WOKE UP ONCE AND TALKED TO STAFF. THIS NURSE SAT NEXT TO THE BED, HELD HIS HAND, AND TALKED TO HIM A LITTLE ABOUT WHAT HE WANTED. HE WAS A & O X 3 AND WAS CONFUSED, KEPT STATING HE WAS SUPPOSED TO HAVE A BABY. HE MADE VERY CLEAR TO THIS NURSE THAT HE WANTED WATER AND WANTED HOSPICE AT BEDSIDE JAVID. C/O PAIN WHEN HE WAS AWAKE AND GAVE PRN PAIN MEDICATION AND ANXIETY MEDICATION. KEPT STATING WELL THAT HE COULDNT BREATHE AND THAT HE WAS DYING. PT RESTING AT THIS TIME WITH TPN RUNNING AND WAS ABLE TO SHUT OFF CARDIZEM DRIP AT 0440 R/T PT HEARTRATE IN THE 70S, SR, AND BLOOD PRESSURE WAS TOLERATING DECREASING OF DRIP. WILL CONTINUE TO MONITOR.
[2018-06-23 08:00] VITALS: BP 167/74
--- NOTE | 2018-06-23 09:33 | NUR ---
Nutrition: follow up note. TPN started, now d/c'd. Pt to go Hospice when available. Pt is thirsty, but not hungry. Physician indicated severe PCM - agree. Per [facility], wt is up fom 190 to 227#. Alb 1.9, prealb is up to 16.3, BG 194. End-stage COPD. No further nutrition interventions. RD available if needed.
--- NOTE | 2018-06-23 10:26 | NUR ---
ASSUMED CARE OF PT AT 0730. PT RESTING IN BED WITH BIPAP IN PLACE. PT PLACED ON 5L NC AND PT ABLE TO ANSWER ORIENTATION QUESTIONS APPROPRIATELY AND STATES I WANT ICE AND WATER. DR MUNOZ HERE TO SEE PT. ORDERS RECEIVED TO INITIATE HOSPICE EVAL AND REGULAR DIET PER PT REQUEST, BIPAP FOR COMFORT AND TRANSITION TO ORAL PAIN MEDICATIONS. MORPHINE SUBLINGUAL GIVEN TO PT PER EMAR WITH MINIMAL RELIEF. PT REQUESTING IV MEDICATION THAT WAS GIVEN BEFORE. DR MUNOZ NOTIFIED. PER DR MUNOZ- TRANSITION PT TO PO FOR HOSPICE. PT REFUSED PO [facility]CO STATING I WILL CHOKE TO . PT GIVEN IVP ATIVAN TO HELP RELAX. PT GIVEN ICE CHIPS, WATER AND DIET PEPSI PER REQUEST. SONDANIEL AT BEDSIDE AT THIS TIME AND UPDATED ON CURRENT PLAN OF CARE. PT TRACING SR ON THE ACQUISITIONS LOGISTICS ANALYST. LI TO DEPENDENT DRAINAGE. TPN DISCONTINUED PER DR MUNOZ. PT GOAL FOR TODAY IS TO TRANSITION TO HOSPICE/COMFORT CARE. AM ASSESSMENT CHARTED. MEDICATIONS PER DEC. PT REPOSITIONED EVERY 2 HOURS FOR COMFORT. HOURLY ROUNDING OBSERVED. BED IN LOW POSITION. BED ALARM IN PLACE. FALL PRECAUTIONS IN PLACE. CALL LIGHT WITHIN REACH. WILL CONTINUE PLAN OF CARE.
[2018-06-23 11:51] VITALS: BP 146/73
--- NOTE | 2018-06-23 14:07 | NUR ---
SPOKE TO PATIENT AND SON TO DISCUSS HOSPICE. PATIENT AND SON AGREEABLE TO HOSPICE, BUT ARE CONCERNED ABOUT COST. SPOKE TO DR REYNAGA TO DISCUSS POSSIBILITY OF GIP. DR MUNOZ IN AGREEMENT IF PATIENT QUALIFIES. SPOKE TO [facility] WITH [facility] TO INFORM OF THE NEED FOR HOSPICE EVAL WITH A NURSE FOR POSSIBLE GIP, AND AXED PATIENT'S FACESHEET, H&P, AND LABS. [facility] TO MEET WITH PATIENT AND FAMILY TODAY FOR HOSPICE EVAL. CM WILL REMAIN AVIALABLE TO ASSIST AND FOLLOW NEEDED.
[2018-06-23 15:35] VITALS: BP 147/81
--- NOTE | 2018-06-23 16:52 | NUR ---
WILL DISCHARGE PT. FROM [facility] AT THIS TIME. HE DECLINES FURTHER O.T. SERVICES AT THIS TIME STATING "I WANT TO ON YOUR WATCH". PT. IS CURRENTLY GETTING SUBLINGUAL MORPHINE FOR PAIN AND A HOSPICE CONSULT TOOK PLACE TODAY. PLEASE REORDER IF PT.'S SITUATION CHANGES AND DOES NOT GO TO HOSPICE OR REQUESTS CAREGIVER TRAINING FOR HOME.
--- NOTE | 2018-06-23 18:41 | NUR ---
[facility] HERE TO EVAL PT FOR INPT HOSPICE. PER [facility], DAREK OK TO PROCEED WITH HOSPICE AT THIS TIME FOR 24 HOURS AND [facility] WILL RE ASSESS PT TOMORROW TO SEE IF PT QUALIFIES FOR INPT HOSPICE. PT AT BEDSIDE THIS EVENING. PT TREATED FOR PAIN AND ANXIETY PRN-REFER TO EMAR. PT GIVEN REGULAR DIET- REQUIRES ASSIST WITH MEALS. CONTINUES TO TRACE SR ON THE TUBE SIZER OPERATOR. ON 5L NC SAT UPPER 90'S. COARSE CRACKLES, WHEEZES NOTED. LI TO DEPENDENT DRAINAGE. PT REPOSITIONED EVERY 2 HOURS FOR COMFORT. HOURLY ROUNDING OBSERVED. BED IN LOW POSITION. CALL LIGHT WITHIN REACH. WILL CONTINUE PLAN OF CARE.
--- NOTE | 2018-06-29 13:22 | CON ---
[address] [address] CONSULTATION Name: PAULINO CONTRERAS Room: [address] IN ..#: [id number] Admission: 06/15/18 Attend Phys: Jermaine Suh MD Discharge: 06/23/18 Date of : 54 Report #: [id number] THIS REPORT FOR: //name// CC: Jermaine Scott Wainwright DATE OF SERVICE: 06/19/2018 HISTORY OF PRESENT ILLNESS: A 67-year-old male with past medical history significant for coronary artery disease, COPD, atrial fibrillation who presented to the hospital 4 days back with difficulty breathing. The patient was diagnosed with aspiration pneumonia over the course of his hospitalization. The GI service has been consulted for PEG tube placement. The patient denies any significant abdominal pain, nausea, vomiting, diarrhea or weight loss. The patient cannot recollect if he ever had an EGD before. PAST MEDICAL HISTORY: Atrial fibrillation, COPD, coronary artery disease, aspiration pneumonia. PAST SURGICAL HISTORY: The patient has history of surgery for kidney tumor, had back surgeries. SOCIAL HISTORY: The patient has a prior history of smoking and alcohol use. Also, used recreational marijuana 3 months prior. FAMILY HISTORY: Positive for lung cancer in a brother. REVIEW OF SYSTEMS: Comprehensive 10-point review of systems is negative except for shortness of breath, cough, fever and chills. PHYSICAL EXAMINATION: VITAL SIGNS: Temperature 36.8, pulse rate 94, respirations 22-24 on 5 liters oxygen, blood pressure 121/85. GENERAL: The patient is alert, awake, oriented x 3. Mucous membranes are moist. There is no congestion. HEENT: Pupils are equal, round, reactive to light and accommodation. LUNGS: Show expiratory wheezes bilaterally. There are chest retractions and accessory muscles of respirations are active. CARDIOVASCULAR: Regular rate and rhythm. S1, S2 present. ABDOMEN: Soft. There is no distention, no tenderness. Tympany to percussion. Bowel sounds are present. EXTREMITIES: Warm, well perfused. There is no edema. NEUROLOGIC: Has no focal neurological deficit. LABORATORY DATA: Hemoglobin 9.3, hematocrit 29.4, WBC count 20.7. Sodium 140, [place] [address] CONSULTATION Name: PAULINO CONTRERAS Room: [address]#: [id number] Admission: 06/15/18 Attend Phys: Jermaine Suh MD Discharge: 06/23/18 Date of : 54 Report #: [id number] potassium 4.2, chloride 105, bicarbonate 27, BUN 27, creatinine 0.7, bilirubin 0.5, AST 20, ALT 19, alkaline phosphatase 81. ASSESSMENT: This is a pleasant 67-year-old male with past medical history significant for chronic obstructive pulmonary disease, atrial fibrillation, not on chronic anticoagulation, and aspiration pneumonia. GI service has been consulted for evaluation of PEG tube placement. The patient will receive usp placement after a PEG tube is placed. PLAN: To have him recover in a usp for 4 weeks after PEG tube placement. If the patient does not recover significantly after 4 weeks of usp therapy after PEG tube placement, he will seek hospice care. I explained to the patient the risks and benefits of PEG tube. I did explain to him that PEG tube as such will not be able to help with aspiration and he will continue to remain n.p.o. The tube has to remain in for a minimum of 4 weeks even if he does not need it for the tract to mature. After 4 weeks if the patient does not need the feeding tube anymore, it can be removed externally. We will wait for a couple of more days of antibiotic therapy and see if the patient's respiratory status improves before proceeding with PEG tube placement. <ELECTRONICALLY SIGNED> By: Darrion Almonte MD 06/29/18 1322 [id number] Almonte MD /nt
== END 2018-06-23 19:08 | disposition hospice, inpatient (51) | DRG 871 ==
LOC: M.ERS 06:05 → M.ICU 06:30 → M.TBA-ER 06:30 → M.ICU 08:23 → M.2W 06-17 12:18
PROVIDERS: Emergency Medicine; Family Medicine; Internal Medicine; Internal Medicine Infectious Disease; Internal Medicine Pulmonary Disease; ADMIT Internal Medicine
DX: A41.9 Sepsis, unspecified organism (principal); J69.0 Pneumonitis due to inhalation of food and vomit; J96.20 Acute and chronic respiratory failure, unspecified whether with hypoxia or hypercapnia; E43 Unspecified severe protein-calorie malnutrition; I48.92 Unspecified atrial flutter; Z68.41 Body mass index [BMI] 40.0-44.9, adult; J44.9 Chronic obstructive pulmonary disease, unspecified; I10 Essential (primary) hypertension; M25.511 Pain in right shoulder; N40.0 Benign prostatic hyperplasia without lower urinary tract symptoms; F32.9 Major depressive disorder, single episode, unspecified; F41.9 Anxiety disorder, unspecified; I25.10 Atherosclerotic heart disease of native coronary artery without angina pectoris; I48.2 Chronic atrial fibrillation; F17.210 Nicotine dependence, cigarettes, uncomplicated; Z91.81 History of falling; Z85.118 Personal history of other malignant neoplasm of bronchus and lung; Z79.899 Other long term (current) drug therapy

== ENCOUNTER 2018-06-23 19:28 | Inpatient (IN) | payer OTHER ==
[~2018-06-23] VITALS: Ht 154.9 cm; Wt 103.0 kg
--- NOTE | ~2018-06-23 | H ---
[address] [address] HISTORY AND PHYSICAL Name: PAULINO CONTRERAS Room: [address] IN ..#: [id number] Admission: 06/23/18 Attend Phys: Garry España MD Discharge: 06/26/18 Date of : 54 Report #: [id number] THIS REPORT FOR: //name// Inpatient Hospice. History and Physical is not required. By: 0656Medical Records Staff TJ /AVILA
[2018-06-23 20:00] VITALS: BP 174/68
--- NOTE | 2018-06-24 04:28 | NUR ---
PT MOVED TO BEING HOSPICE CARE DURING DAY SHIFT TODAY. ASSUMED PT CARE AT 1930. ASSESSMENT COMPLETED CHARTED. PT YELLED OUT ONCE DURING THE NIGHT WANTING A NURSE AND GAVE PRN PAIN AND ANXIETY MEDICATION. PT ALSO REQUESTED BREATHING TX, AND STATED HE IS TIRED OF BREATHING. SAT WITH PT FOR A LITTLE BIT AFTERWARDS. PT HAS BEEN ASKING ALOT FOR DIET PEPSI. ABLE TO MAKE SOME NEEDS KNOWN. SON WAS BY EARLIER IN SHIFT AND WANTED TO KNOW WHEN DOCTOR AND HOSPICE NURSE WAS GONNA BE BY NEXT. PT RESTING AT THIS TIME. WILL CONTINUE TO MONITOR.
[2018-06-24 08:00] VITALS: BP 142/78
[2018-06-24 12:00] VITALS: BP 151/82
[2018-06-24 16:37] VITALS: BP 153/83
[2018-06-24 19:40] VITALS: BP 153/84
[2018-06-25] VITALS: BP 173/76
--- NOTE | 2018-06-25 04:49 | NUR ---
AT BEGINNING OF SHIFT PT WA AAOX3, TELEMETRY PACK INTACT WTIH ALARMS SET.PT C/O BEING SOB. O2 SAT 84%. NON REBREATHER MASK APPLIED AND BREATHING TREATMENT GIVEN PER RT ORDERED. O2 SAT INCREASED TO 92%. PT VERY WET SOUNDING, AND PT KEPT SAYING HE WAS NOT GOING TO MAKE IT. DR SON CALLED AND NEW ORDER OBTAINED. PTS BRETHING HAS BEOCME INCREASINGLY LABORED WITH NOISEY RESP STATUS NOTED. MEDICATION IS KEEPING PT SLEEPY BUT WILL AROUSE WHEN MOVING OR SPOKEN TO. WILL CONTINUE TO MONITOR
[2018-06-25 07:30] VITALS: BP 128/75
[2018-06-25 12:03] VITALS: BP 124/76
--- NOTE | 2018-06-25 15:41 | NUR ---
VSS, ASSUMED CARE IN THE AM, ASSESSMENT PERFORMED AND CHARTED, PT IS TRACING ST ON THE MONITOR WITH SOME PVC'S, PT IS VERY SLEEPY AND HARD TO WAKE, AND WILL NOT RESPONED TO VERBAL COMANDS, PT IS ON A NONE REBREATHER MASK, WITH 15 L, HE HAS SWELLING 2-3+ THROUGHT BODY, AT THIS TIME THERE HAS BEEN NO STATUSE CHANGE, HOSPICE VISIT HAS A 24-48 HR FORCAST FOR PT. HOURLY ROUNDS AND REPOSITION PRN, PT HAS LI IN PLACE BUT HAS LITTLE OUT PUT, I HAVE SPOKEN WITH FAMILY AND ENCURAGED TO VIST PT,
[2018-06-25 19:20] VITALS: BP 146/87
[2018-06-26] VITALS: BP 158/70
--- NOTE | 2018-06-26 04:48 | NUR ---
PT IS NON RESPONSIVE TO VERBAL COMMANDS, WILL WITHDRAW TO PAINFUL STIMULI. PT REMAINS ON COMFORT MEASURES. RESP REG AND LABORED. SKIN MOIST. COLOR DUSKY. O2 6L BNC INTACT. HOSPICE NURSE VISITED THIS SHIFT SON WAS PRESENT AT THAAT TIME. NO ACUTE CHANGES THIS SHIFT, WILL CONTINUE TO MONITOR.LI INTACT AND PATENT DRAINING KIRILL URINE.
[2018-06-26 08:00] VITALS: BP 107/59
--- NOTE | 2018-06-26 10:51 | NUR ---
Spoke with Kathleen from [facility], Pt is actively dying, and does not anticipate that Pt will live much longer. Kathleen discussed with Pt's nurse.
--- NOTE | 2018-06-26 15:59 | NUR ---
VSS, ASSUMED CARE IN THE AM, ASSESSMENT PERFORMED AND CHARTED, FALL PRECAUTIONS IN PLACE AND CALL LIGHT IN REACH, PT IS ON HOSPICE CARE, IS SLEEPING AND SHOWS TRUBLE BREATHING, ON ON 2L NC AND CARE GOALS ARE PER COMFURT CARE, AT 1320 PT WAS FOUND TO HAVE PASSED, CALLED [facility], [facility], [facility] AND [facility]. PICC LINE AND LI REMOVED, WILL FOLLOW WITH ORDERS,
== END 2018-06-26 13:20 | DRG 871 ==
LOC: M.2W 19:28
PROVIDERS: ADMIT Internal Medicine
PROC: 05HY33Z Insertion of Infusion Device into Upper Vein, Percutaneous Approach (ICD-10-PCS; principal; 2018-06-23)
PROC: 5A09357 Assistance with Respiratory Ventilation, Less than 24 Consecutive Hours, Continuous Positive Airway Pressure (ICD-10-PCS; 2018-06-23)
DX: A41.9 Sepsis, unspecified organism (principal); J69.0 Pneumonitis due to inhalation of food and vomit; J96.21 Acute and chronic respiratory failure with hypoxia; E43 Unspecified severe protein-calorie malnutrition; J96.22 Acute and chronic respiratory failure with hypercapnia; I48.91 Unspecified atrial fibrillation; J44.9 Chronic obstructive pulmonary disease, unspecified; I10 Essential (primary) hypertension; M25.511 Pain in right shoulder; R13.10 Dysphagia, unspecified; Z51.5 Encounter for palliative care; Z66 Do not resuscitate; Z91.81 History of falling; Z68.41 Body mass index [BMI] 40.0-44.9, adult